=== PATIENT | male | born 1950 | race Caucasian/White ===

== ENCOUNTER 2020-06-11 07:48 | Outpatient (REF) | payer MEDICARE, OTHER, SELFPAY ==
[2020-06-11 10:27] LABS: Basophils Percent Auto 0.6 % (0-2); Eosinophils Absolute Auto 0.2 X10*3/uL (0.0-0.4); Eosinophils Percent Auto 2.7 % (0-4); Hematocrit 45.2 % (42-52); Hemoglobin 14.5 g/dl (14.0-18.0); Imm Gran Abs Auto 0.02 X10*3/uL (0.00-0.03); Imm Gran Pct Auto 0.3 % (0.0-0.4); Lymphocytes Absolute Auto 0.9 X10*3/uL (1.2-4.9); Lymphocytes Percent Auto 13.3 % (20-40); MANUAL DIFF FLAG NO; Mean Corpuscular HGB Conc 32.1 g/dl (31.0-36.0); Mean Corpuscular Hemoglobin 29.6 pg (27.0-33.0); Mean Corpuscular Volume 92.2 fL (80-98); Monocytes Absolute Auto 0.5 X10*3/uL (0.1-1.2); Monocytes Percent Auto 8.4 % (2-11); Neutrophils Absolute Auto 4.8 X10*3/uL (2.0-8.3); Neutrophils Percent Auto 74.7 % (45-73); Platelet Count 163 X10*3/uL (160-400); Red Cell Distribution Width 13.3 % (11.0-16.0); White Blood Count 6.4 X10*3/uL (4.8-10.8)
[2020-06-11 10:43] LABS: Estimated Average Glucose 126 mg/dL
[2020-06-11 11:00] LABS: Alanine Aminotransferase 38 U/L (0-40); Albumin Level 4.3 g/dL (3.5-5.0); Alkaline Phosphatase 46 U/L (39-117); Anion Gap 11 (12-20); Aspartate Amino Transferase 27 U/L (5-37); Bilirubin Total 0.8 mg/dL (0.0-1.0); Blood Urea Nitrogen 24 mg/dL (9-16); Calcium 8.8 mg/dL (8.4-10.2); Carbon Dioxide 32 mmol/L (22-29); Chloride 101 mmol/L (96-108); Cholesterol 160 mg/dL; Estimated Glomerular Filt Rate > 60; Glucose Fasting 114 mg/dL (60-99); HDL Cholesterol 38 mg/dL; LDL Cholesterol Calculated 95 mg/dl; Potassium 4.4 mmol/L (3.3-5.1); Sodium 140 mmol/L (135-145); Total Protein 6.8 g/dL (6.5-8.0); Triglycerides 138 mg/dL
[2020-06-11 11:21] LABS: TSH reflex Free T4 1.37 uIU/mL (0.32-4.0); Vitamin D 25-OH Total 18.6 ng/mL (>30)
[2020-06-11 12:23] LABS: Vitamin B12 715 pg/mL (200-900)
[2020-06-11 14:17] LABS: Glucose Urine UA NEG (NEG); Leukocyte Esterase Urine NEG (NEG); Nitrite Urine NEG (NEG); PH 5.5 (5.0-8.0); Specific Gravity - Urine >= 1.030 (1.005-1.025); Urine Blood NEG (NEG); Urine Ketones NEG (NEG); Urine Protein NEG (NEG-TRACE)
[2020-06-11 14:19] LABS: Appearance Urine TURBID; Color Urine YELLOW
[2020-06-11 14:42] LABS: RBC Urine 0 /HPF (0); WBC Urine 0 /HPF (0-4)
[2020-06-11 14:43] LABS: Amorphous Sediment Urine 4+ /LPF
== END 2020-06-11 07:49 | disposition home or self-care (01) ==
LOC: HO.10HDL 07:48
PROVIDERS: Visit Provider Internal Medicine
DX: E78.5 Hyperlipidemia, unspecified (principal); I10 Essential (primary) hypertension; R73.01 Impaired fasting glucose; I25.10 Atherosclerotic heart disease of native coronary artery without angina pectoris; E53.8 Deficiency of other specified B group vitamins; K21.9 Gastro-esophageal reflux disease without esophagitis; N39.41 Urge incontinence; E55.9 Vitamin D deficiency, unspecified; G57.12 Meralgia paresthetica, left lower limb; E66.9 Obesity, unspecified
CPT/HCPCS: 36415; 80053; 80061; 81001; 82306; 82607; 82746; 83036; 84443; 85025

== ENCOUNTER 2020-12-17 07:53 | Outpatient (REF) | payer MEDICARE, OTHER, SELFPAY ==
[2020-12-17 10:17] LABS: MANUAL DIFF FLAG NO
[2020-12-17 10:21] LABS: Basophils Percent Auto 0.4 % (0-2); Eosinophils Absolute Auto 0.2 X10*3/uL (0.0-0.4); Eosinophils Percent Auto 3.2 % (0-4); Hematocrit 44.8 % (42-52); Hemoglobin 14.6 g/dl (14.0-18.0); Imm Gran Abs Auto 0.02 X10*3/uL (0.00-0.03); Imm Gran Pct Auto 0.4 % (0.0-0.4); Lymphocytes Absolute Auto 0.8 X10*3/uL (1.2-4.9); Lymphocytes Percent Auto 14.3 % (20-40); Mean Corpuscular HGB Conc 32.6 g/dl (31.0-36.0); Monocytes Absolute Auto 0.5 X10*3/uL (0.1-1.2); Neutrophils Percent Auto 72.7 % (45-73); Platelet Count 160 X10*3/uL (160-400); Red Blood Count 4.87 X10*6/uL (4.60-5.80); Red Cell Distribution Width 13.1 % (11.0-16.0); White Blood Count 5.5 X10*3/uL (4.8-10.8)
[2020-12-17 10:34] LABS: Estimated Average Glucose 126 mg/dL
[2020-12-17 10:46] LABS: Appearance Urine CLOUDY; Color Urine YELLOW; Glucose Urine UA NEG (NEG); Leukocyte Esterase Urine NEG (NEG); Nitrite Urine NEG (NEG); PH 5.5 (5.0-8.0); Specific Gravity - Urine >= 1.030 (1.005-1.025); Urine Blood NEG (NEG); Urine Ketones NEG (NEG); Urine Protein NEG (NEG-TRACE)
[2020-12-17 10:47] LABS: Alanine Aminotransferase 47 U/L (0-40); Albumin Level 4.2 g/dL (3.5-5.0); Alkaline Phosphatase 44 U/L (39-117); Anion Gap 13 (12-20); Aspartate Amino Transferase 30 U/L (5-37); Bilirubin Total 0.5 mg/dL (0.0-1.0); Blood Urea Nitrogen 19 mg/dL (9-16); Carbon Dioxide 28 mmol/L (22-29); Chloride 103 mmol/L (96-108); Cholesterol 154 mg/dL; Estimated Glomerular Filt Rate > 60; Glucose Fasting 121 mg/dL (60-99); HDL Cholesterol 38 mg/dL; LDL Cholesterol Calculated 90 mg/dl; Potassium 4.5 mmol/L (3.3-5.1); Sodium 139 mmol/L (135-145); Total Protein 6.7 g/dL (6.5-8.0); Triglycerides 132 mg/dL
[2020-12-17 11:08] LABS: TSH reflex Free T4 1.01 uIU/mL (0.32-4.0); Vitamin D 25-OH Total 20.8 ng/mL (>30)
[2020-12-17 12:11] LABS: Vitamin B12 677 pg/mL (200-900)
== END 2020-12-17 07:54 | disposition home or self-care (01) ==
LOC: HO.10HDL 07:53
PROVIDERS: Visit Provider Internal Medicine
DX: E78.00 Pure hypercholesterolemia, unspecified (principal); I10 Essential (primary) hypertension; R73.01 Impaired fasting glucose; E55.9 Vitamin D deficiency, unspecified; E66.9 Obesity, unspecified; E53.8 Deficiency of other specified B group vitamins; K21.9 Gastro-esophageal reflux disease without esophagitis
CPT/HCPCS: 36415; 80053; 80061; 81003; 82306; 82607; 82746; 83036; 84443; 85025

== ENCOUNTER 2021-10-05 06:57 | Outpatient (REF) | payer MEDICARE, OTHER, SELFPAY ==
[2021-10-05 07:25] LABS: MANUAL DIFF FLAG NO
[2021-10-05 08:03] LABS: Basophils Absolute Auto 0.1 X10*3/uL (0.0-0.2); Eosinophils Absolute Auto 0.2 X10*3/uL (0.0-0.4); Eosinophils Percent Auto 4.8 % (0-4); Hematocrit 44.8 % (42.0-52.0); Hemoglobin 14.8 g/dl (14.0-18.0); Imm Gran Abs Auto 0.01 X10*3/uL (0.00-0.03); Imm Gran Pct Auto 0.2 % (0.0-0.4); Lymphocytes Absolute Auto 0.9 X10*3/uL (1.2-4.9); Lymphocytes Percent Auto 17.6 % (20-40); Mean Corpuscular Hemoglobin 30.4 pg (27.0-33.0); Mean Platelet Volume 11.6 fL (9.4-12.4); Monocytes Absolute Auto 0.4 X10*3/uL (0.1-1.2); Monocytes Percent Auto 8.9 % (2-11); Neutrophils Absolute Auto 3.3 x10*3/uL (2.0-8.3); Neutrophils Percent Auto 67.5 % (45-73); Platelet Count 149 X10*3/uL (160-400); Red Blood Count 4.87 X10*6/uL (4.60-5.80); Red Cell Distribution Width 13.8 % (11.0-16.0); White Blood Count 4.8 X10*3/uL (4.8-10.8)
[2021-10-05 08:12] LABS: Estimated Average Glucose 117 mg/dL; Hemoglobin A1C 151.6575 umol/L; Hemoglobin A1c % 5.7 %
[2021-10-05 08:18] LABS: Appearance Urine CLEAR; Color Urine YELLOW; Glucose Urine UA NEG (NEG); Leukocyte Esterase Urine NEG (NEG); Nitrite Urine NEG (NEG); Urine Blood NEG (NEG); Urine Ketones NEG (NEG); Urine Protein NEG (NEG-TRACE)
[2021-10-05 08:36] LABS: Alanine Aminotransferase 28 U/L (0-40); Albumin Level 4.3 g/dL (3.5-5.0); Alkaline Phosphatase 48 U/L (39-117); Anion Gap 9 (12-20); Aspartate Amino Transferase 25 U/L (5-37); Bilirubin Total 0.7 mg/dL (0.0-1.0); Blood Urea Nitrogen 19 mg/dL (9-16); Calcium 8.9 mg/dL (8.4-10.2); Carbon Dioxide 31 mmol/L (22-29); Chloride 101 mmol/L (96-108); Cholesterol 165 mg/dL; Estimated Glomerular Filt Rate > 60; Glucose Fasting 107 mg/dL (60-99); HDL Cholesterol 41 mg/dL; LDL Cholesterol Calculated 92 mg/dl; Potassium 4.2 mmol/L (3.3-5.1); Sodium 137 mmol/L (135-145); Total Protein 6.9 g/dL (6.5-8.0); Triglycerides 162 mg/dL
[2021-10-05 08:59] LABS: TSH reflex Free T4 0.96 uIU/mL (0.32-4.0); Vitamin D 25-OH Total 20.7 ng/mL (>30)
== END 2021-10-05 06:58 | disposition home or self-care (01) ==
LOC: HO.LAB 06:57
PROVIDERS: PCP Internal Medicine; Visit Provider Internal Medicine
DX: E55.9 Vitamin D deficiency, unspecified (principal); I10 Essential (primary) hypertension; E78.00 Pure hypercholesterolemia, unspecified; R73.01 Impaired fasting glucose
CPT/HCPCS: 36415; 80053; 80061; 81003; 82306; 83036; 84443; 85025

== ENCOUNTER 2022-04-05 07:44 | Outpatient (REF) | payer MEDICARE, OTHER, SELFPAY ==
[2022-04-05 10:33] LABS: MANUAL DIFF FLAG NO
[2022-04-05 10:38] LABS: Basophils Percent Auto 0.5 % (0-2); Eosinophils Absolute Auto 0.2 X10*3/uL (0.0-0.4); Hematocrit 45.5 % (42.0-52.0); Hemoglobin 14.7 g/dl (14.0-18.0); Imm Gran Abs Auto 0.01 X10*3/uL (0.00-0.03); Imm Gran Pct Auto 0.2 % (0.0-0.4); Lymphocytes Absolute Auto 0.8 X10*3/uL (1.2-4.9); Lymphocytes Percent Auto 14.2 % (20-40); Mean Corpuscular HGB Conc 32.3 g/dl (31.0-36.0); Mean Corpuscular Hemoglobin 29.6 pg (27.0-33.0); Mean Corpuscular Volume 91.7 fL (80.0-98.0); Mean Platelet Volume 11.6 fL (9.4-12.4); Monocytes Absolute Auto 0.5 X10*3/uL (0.1-1.2); Monocytes Percent Auto 8.9 % (2-11); Neutrophils Absolute Auto 4.2 x10*3/uL (2.0-8.3); Neutrophils Percent Auto 72.2 % (45-73); Platelet Count 164 X10*3/uL (160-400); Red Blood Count 4.96 X10*6/uL (4.60-5.80); Red Cell Distribution Width 13.2 % (11.0-16.0); White Blood Count 5.8 X10*3/uL (4.8-10.8)
[2022-04-05 11:10] LABS: Estimated Average Glucose 126 mg/dL
[2022-04-05 11:15] LABS: Appearance Urine Clear; Color Urine Yellow; Glucose Urine UA Negative (Negative); Leukocyte Esterase Urine Negative (Negative); Nitrite Urine Negative (Negative); Urine Blood Negative (Negative); Urine Ketones Negative (Negative); Urine Protein Negative (Neg-Trace)
[2022-04-05 11:25] LABS: Alanine Aminotransferase 22 U/L (0-40); Albumin Level 4.3 g/dL (3.5-5.0); Alkaline Phosphatase 55 U/L (39-117); Anion Gap 11 (12-20); Aspartate Amino Transferase 21 U/L (5-37); Bilirubin Total 0.6 mg/dL (0.0-1.0); Blood Urea Nitrogen 21 mg/dL (9-16); Calcium 9.4 mg/dL (8.4-10.2); Carbon Dioxide 31 mmol/L (22-29); Chloride 101 mmol/L (96-108); Cholesterol 150 mg/dL; Estimated Glomerular Filt Rate > 60; Glucose Fasting 111 mg/dL (60-99); HDL Cholesterol 37 mg/dL; LDL Cholesterol Calculated 83 mg/dl; Potassium 4.7 mmol/L (3.3-5.1); Sodium 138 mmol/L (135-145); Total Protein 6.7 g/dL (6.5-8.0); Triglycerides 153 mg/dL
[2022-04-05 12:09] LABS: TSH reflex Free T4 1.39 uIU/mL (0.32-4.0); Vitamin D 25-OH Total 22.1 ng/mL (>30)
== END 2022-04-05 07:45 | disposition home or self-care (01) ==
LOC: HO.10HDL 07:44
PROVIDERS: Visit Provider Internal Medicine
DX: E78.00 Pure hypercholesterolemia, unspecified (principal); E55.9 Vitamin D deficiency, unspecified; R73.01 Impaired fasting glucose; I10 Essential (primary) hypertension
CPT/HCPCS: 36415; 80053; 80061; 81003; 82306; 83036; 84443; 85025

== ENCOUNTER 2022-05-13 11:15 | Outpatient (REF) | payer MEDICARE, OTHER, SELFPAY ==
--- NOTE | ~2022-05-13 | XR_ITS ---
EXAMINATION: CERVICAL SPINE 3 VIEWS CLINICAL INFORMATION: Radiculopathy. COMPARISON: None. TECHNIQUE: Frontal, lateral and odontoid views are obtained. FINDINGS: Vertebral body heights and alignment are normal. There is mild disc space narrowing at C4-C5, and moderate disc space narrowing is seen at C5-C6 and C6-C7. The remaining disc spaces are well-maintained. No acute fracture or spondylolisthesis is seen. There is multi-level moderate to marked cervical spondylosis. The posterior elements are intact. There is no prevertebral soft tissue swelling. The dens and C7-T1 interface are normal. XR/XR cervical spine 3V IMPRESSION: 1. There is mild degenerative disc disease at C4-C5 and moderate degenerative disc disease seen at C5-C6 and C6-C7. 2. There is multi-level cervical spondylosis. EXAMINATION: XR THORACIC SPINE CLINICAL INFORMATION: Thoracic spondylosis, without myelopathy or radiculopathy. COMPARISON: Radiographs dated 04/06/2015. TECHNIQUE: Frontal, lateral and swimmer's views of the thoracic spine were obtained. FINDINGS: There is a mild to moderate thoracolumbar dextroscoliosis. The thoracic disc spaces are relatively well-maintained. No acute fracture or spondylolisthesis is seen. This multi-level thoracolumbar spondylosis. The posterior elements are intact. The paravertebral soft tissues are unremarkable. IMPRESSION: 1. There is multi-level thoracolumbar spondylosis. 2. The thoracic disc spaces are relatively well-maintained. 3. There is a mild to moderate thoracolumbar dextroscoliosis.
--- NOTE | ~2022-05-13 | XR_ITS ---
EXAMINATION: CERVICAL SPINE 3 VIEWS CLINICAL INFORMATION: Radiculopathy. COMPARISON: None. TECHNIQUE: Frontal, lateral and odontoid views are obtained. FINDINGS: Vertebral body heights and alignment are normal. There is mild disc space narrowing at C4-C5, and moderate disc space narrowing is seen at C5-C6 and C6-C7. The remaining disc spaces are well-maintained. No acute fracture or spondylolisthesis is seen. There is multi-level moderate to marked cervical spondylosis. The posterior elements are intact. There is no prevertebral soft tissue swelling. The dens and C7-T1 interface are normal. XR/XR thoracic spine 3V IMPRESSION: 1. There is mild degenerative disc disease at C4-C5 and moderate degenerative disc disease seen at C5-C6 and C6-C7. 2. There is multi-level cervical spondylosis. EXAMINATION: XR THORACIC SPINE CLINICAL INFORMATION: Thoracic spondylosis, without myelopathy or radiculopathy. COMPARISON: Radiographs dated 04/06/2015. TECHNIQUE: Frontal, lateral and swimmer's views of the thoracic spine were obtained. FINDINGS: There is a mild to moderate thoracolumbar dextroscoliosis. The thoracic disc spaces are relatively well-maintained. No acute fracture or spondylolisthesis is seen. This multi-level thoracolumbar spondylosis. The posterior elements are intact. The paravertebral soft tissues are unremarkable. IMPRESSION: 1. There is multi-level thoracolumbar spondylosis. 2. The thoracic disc spaces are relatively well-maintained. 3. There is a mild to moderate thoracolumbar dextroscoliosis.
== END 2022-05-13 11:16 | disposition home or self-care (01) ==
LOC: HO.XRAY 11:15
PROVIDERS: PCP Internal Medicine; Visit Provider Internal Medicine
DX: M54.10 Radiculopathy, site unspecified (principal); M47.814 Spondylosis without myelopathy or radiculopathy, thoracic region
CPT/HCPCS: 72040; 72072

== ENCOUNTER 2022-11-15 08:02 | Outpatient (REF) | payer MEDICARE, OTHER, SELFPAY ==
[2022-11-15 08:24] LABS: MANUAL DIFF FLAG NO
[2022-11-15 08:55] LABS: Basophils Percent Auto 0.8 % (0-2); Eosinophils Absolute Auto 0.2 X10*3/uL (0.0-0.4); Eosinophils Percent Auto 3.9 % (0-4); Hematocrit 44.8 % (42.0-52.0); Hemoglobin 14.7 g/dl (14.0-18.0); Imm Gran Abs Auto 0.02 X10*3/uL (0.00-0.03); Imm Gran Pct Auto 0.4 % (0.0-0.4); Lymphocytes Absolute Auto 0.9 X10*3/uL (1.2-4.9); Lymphocytes Percent Auto 16.6 % (20-40); Mean Corpuscular HGB Conc 32.8 g/dl (31.0-36.0); Mean Corpuscular Hemoglobin 29.6 pg (27.0-33.0); Mean Corpuscular Volume 90.3 fL (80.0-98.0); Mean Platelet Volume 11.5 fL (9.4-12.4); Monocytes Absolute Auto 0.5 X10*3/uL (0.1-1.2); Neutrophils Absolute Auto 3.5 x10*3/uL (2.0-8.3); Neutrophils Percent Auto 68.3 % (45-73); Platelet Count 143 X10*3/uL (160-400); Red Blood Count 4.96 X10*6/uL (4.60-5.80); Red Cell Distribution Width 13.5 % (11.0-16.0); White Blood Count 5.1 X10*3/uL (4.8-10.8)
[2022-11-15 09:04] LABS: Estimated Average Glucose 114 mg/dL; Hemoglobin A1c % 5.6 %
[2022-11-15 09:47] LABS: Alanine Aminotransferase 29 U/L (0-40); Albumin Level 4.2 g/dL (3.5-5.0); Alkaline Phosphatase 48 U/L (39-117); Anion Gap 13 (12-20); Aspartate Amino Transferase 22 U/L (5-37); Bilirubin Total 0.6 mg/dL (0.0-1.0); Blood Urea Nitrogen 20 mg/dL (9-16); Calcium 9.6 mg/dL (8.4-10.2); Carbon Dioxide 29 mmol/L (22-29); Chloride 102 mmol/L (96-108); Cholesterol 148 mg/dL; Estimated Glomerular Filt Rate > 60; Glucose Fasting 115 mg/dL (60-99); HDL Cholesterol 37 mg/dL; LDL Cholesterol Calculated 78 mg/dl; Potassium 4.3 mmol/L (3.3-5.1); Sodium 140 mmol/L (135-145); Total Protein 7.1 g/dL (6.5-8.0); Triglycerides 167 mg/dL
[2022-11-15 09:54] LABS: TSH reflex Free T4 1.26 uIU/mL (0.32-4.0); Vitamin D 25-OH Total 29.5 ng/mL (>30)
[2022-11-15 09:57] LABS: Appearance Urine Clear; Color Urine Yellow; Glucose Urine UA Negative (Negative); Leukocyte Esterase Urine Trace (Negative); Nitrite Urine Negative (Negative); UMIC TRIGGER UACC YES; Urine Blood Negative (Negative); Urine Ketones Negative (Negative); Urine Protein Trace mg/dL (Neg-Trace)
[2022-11-15 10:07] LABS: Bacteria Urine None Seen (None Seen); Hyaline Casts Urine 0-2 /LPF (0-2); RBC Urine 0-2 /HPF (0-2); Squamous Epithelial Cell Urine 0-2 /HPF (0-2); WBC Urine 0-5 /HPF (0-5)
== END 2022-11-15 08:03 | disposition home or self-care (01) ==
LOC: HO.LAB 08:02
PROVIDERS: PCP Internal Medicine; Visit Provider Internal Medicine
DX: E55.9 Vitamin D deficiency, unspecified (principal); I10 Essential (primary) hypertension; R73.01 Impaired fasting glucose; E78.00 Pure hypercholesterolemia, unspecified
CPT/HCPCS: 36415; 80053; 80061; 81001; 81003; 82306; 83036; 84443; 85025

== ENCOUNTER 2022-11-16 09:49 | Outpatient (AMB) | payer MEDICARE, OTHER, SELFPAY ==
[2022-11-16 09:50] VITALS: BP 130/78; PULSE 56; O2SAT 96; BMI 37.8
--- NOTE | 2022-11-16 09:50 | MHC.PC.OV ---
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 Required: No Accompanied by: Self / Same As Patient Allergies Sulfa (Sulfonamide Antibiotics) [SULFA (SULFONAMIDE ANTIBIOTICS)] Allergy (Unknown, Verified 11/16/22 10:21) RASH, hives Medication List - Last Reconciled 11/16/22 by Sascha Perkins MD antiox.mv [id number] [id number] mg (I-Caps) 1 cap PO BID atenolol 25 mg PO DAILY blood pressure monitor (Blood Pressure Kit) As directed cholecalciferol (vitamin D3) 25 mcg PO DAILY cyanocobalamin (vitamin B-12) 1,000 mcg PO DAILY isosorbide mononitrate ER 30 mg PO DAILY lisinopril 10 mg PO DAILY simvastatin 40 mg PO BEDTIME 90 days Tobacco use date assessed: 11/16/22 Fall risk assessment: No Falls in past year Last assessed Fall Risk: 11/16/22 Dental Screening Dental Screen Date: 11/16/22 Did you have a dental visit in the last 12 months?: Yes Did you have a dental problem in the last 6 months where you did not have access to dental care?: No Was dental information given to patient?: Patient has dentist HPI F/U HPI Details Patient comes in today for his follow up visit States that he feels okay He denies any headaches or dizziness Denies any chest pains, no SOB No nausea/vomiting, no abdominal pain No change in bowel habits noted He is still having problems with urination - has urinary frequency and nocturia that he feels got worse when he had his procedure done with Dr. Zapata years ago Is scheduled to see Dr. Chavez in December 2022 for urology evaluation Adds that he has some varicose veins on his legs for a while now but they are starting to bother him (hurt) lately - would like to see vascular surgery to help him get these addressed Had his follow up labs done yesterday - to discuss his results Patient states that he will be heading down to [place] in February 2023 and plans to spend the entire winter down there and will not be back up here until early July 2023 [facility] Medical History Benign essential hypertension Benign prostatic hyperplasia Coronary artery disease Erectile dysfunction GERD without esophagitis Impaired fasting glucose Meralgia paresthetica of left side Obesity (BMI 30-39.9) Pure hypercholesterolemia Vitamin B12 deficiency Vitamin D deficiency Surgical History History of prostate surgery (~04/2017) Family History Father Cardiovascular disease Mother Hypertension Social History Housing: House Alcohol intake: current Alcohol intake frequency: a few times a week Alcohol type: wine Patient Tobacco Use Status: Current someday Tobacco user Tobacco use type: Cigar e-Cigarette/Vaping Use: Never Used Second Hand Smoke Exposure: Yes service: No Current occupational status: employed Cognitive needs: No Hearing needs: No Vision needs: Yes Questionnaire PHQ-9 Over the last 2 weeks, how often have you been bothered by any of the following problems? 1. Little interest or pleasure in doing things: not at all 2. Feeling down, depressed, or hopeless: not at all 3. Trouble falling or staying asleep, or sleeping too much: not at all 4. Feeling tired or having little energy: not at all 5. Poor appetite or overeating: not at all 6. Feeling bad about yourself - or that you are a failure or have let yourself or your family down: not at all 7. Trouble concentrating on things, such as reading the newspaper or watching television: not at all 8. Moving or speaking so slowly that other people could have noticed. Or the opposite - being so fidgety or restless that you have been moving around a lot more than usual: not at all 9. Thoughts that you would be better off or of hurting yourself in some way: not at all Total score: 0 Depression Screening Interpretation: Negative 82953 - PHQ-9 Billing: Yes Source: Developed by Drs. Julio Wagoner, Eileen Grover Mcneil and colleagues, with an educational zion from [employer]. Thrive Questionnaire Date Thrive assessed: 11/16/22 I am a: Patient What is your living situation today?: I have a steady place to live Within the past 12 months, did the food you bought not last and you didn't have the money to get more?: Never true Within the past 12 months, did you worry whether your food would run out before you got money to buy more?: Never true Do you have trouble paying for medicines?: No Do you have trouble getting transportation to medical appointments?: No Do you have trouble paying your heating and electricity bill?: No Do you have trouble taking care of your child, family member or friend?: No Do you have trouble with day-to-day activities such as bathing, preparing meals, shopping, managing finances, etc.?: No Are you currently unemployed and looking for a job?: No Are you interested in more education?: No Please select the resources that you would like help with: None Currently or been in a relationship where the following occur: no concerns reported AUDIT C Alcohol Use Questionnaire (AUDIT-C) 1. How often do you have a drink containing alcohol?: 2-3 times a week 2. How many drinks containing alcohol do you have on a typical day when you are drinking?: 1 or 2 3. How often do you have six or more drinks on one occasion?: Never Total Score: 3 Score Reviewed/Action Taken: Yes KODI-7 AMB Questionnaire KODI-7 Date KODI - 7 assessed: 11/16/22 Feeling nervous, anxious, or on edge: 0 = Not at all Not being able to stop or control worryin = Not at all Worrying too much about different things: 0 = Not at all Trouble relaxin = Not at all Being so restless that it is hard to sit still: 0 = Not at all Becoming easily annoyed or irritable: 0 = Not at all Feeling afraid as if something awful might happen: 0 = Not at all Total KODI-7 score (0-4 normal; 5-9 mild; 10-14 moderate; 15-21 severe): 0 Source: Developed by Drs. Julio Wagoner, Grover Kahn and colleagues, with an educational zion from [employer]. Review of Systems Const Denies fatigue, Denies fever(s) and Denies headache(s) ENT Denies dysphagia, Denies dizziness, Denies otalgia, Denies headache(s), Reports neck pain (on and off) and Denies sore throat Card Denies chest pain, Denies palpitations and Denies dyspnea Resp Denies cough and Denies dyspnea GI Denies abdominal pain, Denies constipation, Denies dysphagia, Denies heartburn, Denies diarrhea, Denies nausea and Denies vomiting Denies dysuria, Reports nocturia and Reports urinary frequency Musc Reports back pain, Reports neck pain (on and off) and Denies tingling Neuro Denies dizziness, Denies headache(s) and Denies tingling Endo Denies fatigue and Denies palpitations Samir/Lymph Details: (+) varicose veins on both legs - reports (+) pain on his veins recently Physical exam (Primary Care) Vital Signs: Last Vital Signs Pulse 56 11/16/22 09:50 BP 130/78 11/16/22 09:50 Pulse Ox 96 11/16/22 09:50 Oxygen Delivery Method Room Air 11/16/22 09:50 BMI result Body Mass Index 37.8 Tobacco/Smoking Status: Tobacco use Status Tobacco use date assessed 11/16/22 11/16/22 09:58 Patient Tobacco Use Status Current someday Tobacco 11/16/22 09:58 Tobacco use type Cigar 11/16/22 09:58 e-Cigarette/Vaping Use Never Used 11/16/22 09:58 PHQ-9: PHQ-9 Score PHQ-9: Total score 0 11/16/22 10:23 Depression Screening Interpretation: Negative Thrive Assessment: Date of Thrive Assessment Date Thrive assessed 11/16/22 11/16/22 09:58 Currently or been in a relationship where the following occur: no concerns reported Const General: no acute distress and alert HENMT Ears: TM's normal bilaterally and EAC's normal Throat: Yes posterior oropharynx normal and Yes tonsils normal (no TP congestion) Neck Neck: Yes no lymphadenopathy and Yes supple Resp Auscultation: clear to auscultation bilaterally, no rales and no wheezes Cardio Rate: regular rate Rhythm: regular rhythm Heart sounds: no murmurs GI Palpation (GI): Soft to palpation and nontender Auscultation: normal bowel sounds Back/Spine/Pelvis Cervical Spine: Cervical spine tenderness Thoracic/Lumbar Spine: thoracic spinal tenderness Skin Rashes: no rashes Extrem Other: (+) prominent varicose veins over both lower extremities General: Yes no clubbing, cyanosis or edema Results Reviewed Results Reviewed: Laboratory Tests 11/15/22 11/15/22 11/15/22 08:22 08:22 08:22 WBC 5.1 Hgb 14.7 Hct 44.8 Plt Count 143 L Sodium 140 Potassium 4.3 Creatinine 0.98 Estimated GFR > 60 Fasting Glucose 115 H Hemoglobin A1c % 5.6 Calcium 9.6 AST 22 ALT 29 Triglycerides 167 Cholesterol 148 LDL Cholesterol, Calc 78 HDL Cholesterol 37 25-OH Vitamin D Total 29.5 TSH 1.26 Ur Specific [place] Urine Protein Urine Glucose (UA) Urine Blood 11/15/22 08:25 WBC Hgb Hct Plt Count Sodium Potassium Creatinine Estimated GFR Fasting Glucose Hemoglobin A1c % Calcium AST ALT Triglycerides Cholesterol LDL Cholesterol, Calc HDL Cholesterol 25-OH Vitamin D Total TSH Ur Specific [place] 1.020 Urine Protein Trace Urine Glucose (UA) Negative Urine Blood Negative Assessment and Plan Assessment & Plan (1) Coronary artery disease: Code(s): I25.10 - Atherosclerotic heart disease of [place] coronary artery without angina pectoris Qualifiers: Associated angina: without angina Coronary Disease-Associated Artery/Lesion type: [place] artery [place] vs. transplanted heart: [place] heart Qualified Code(s): I25.10 - Atherosclerotic heart disease of [place] coronary artery without angina pectoris Plan: Continue Isosorbide Mononitrate ER 30 mg QD Cardiac stress test done about 3 years ago came back negative Was recommended by cardiology to continue long-acting nitrates for maintenance therapy Follow up with cardiology as scheduled (2) Pure hypercholesterolemia: Code(s): E78.00 - Pure hypercholesterolemia, unspecified Plan: Results of his labs done yesterday reviewed and discussed with patient Reinforced low cholesterol diet Continue Simvastatin 40 mg QD Will recheck his labs and fasting lipids before we see him back in July 2023 for follow up (3) Benign essential hypertension: Code(s): I10 - Essential (primary) hypertension Plan: Reinforced low sodium diet - goal is systolic BP of at least 130 to 140 mm or less Continue Lisinopril 10 mg QD and Atenolol 25 mg QD (4) Impaired fasting glucose: Code(s): R73.01 - Impaired fasting glucose Plan: HgbA1c has improved to 5.6% on his labs done yesterday; was at 6.0% a few months ago Reinforced low calorie diet/exercise as tolerated (5) GERD without esophagitis: Code(s): K21.9 - Gastro-esophageal reflux disease without esophagitis Plan: Dietary restrictions reinforced (6) Vitamin D deficiency: Code(s): E55.9 - Vitamin D deficiency, unspecified Plan: Improving - continue Vitamin D3 2000 units daily (7) Radiculopathy affecting upper extremity: Code(s): M54.10 - Radiculopathy, site unspecified Plan: Still has on and off symptoms but states that these have not gotten any worse lately Cervical spine x-rays done earlier this year (April 2022) revealed (+) mild degenerative disc disease at C4-C5 and moderate degenerative disc disease seen at C5-C6 and C6-C7. There is also (+) multi-level cervical spondylosis noted May need to consider NCV & EMG if his symptoms persist or worsen (8) Thoracic spondylosis: Code(s): M47.814 - Spondylosis without myelopathy or radiculopathy, thoracic region Plan: Still has on and off back pain but states that his back symptoms have been manageable lately Past thoracic spine x-rays have revealed (+) spondylosis Repeat thoracic spine x-rays done earlier this year revealed (+) multi-level thoracolumbar spondylosis. The thoracic disc spaces are relatively well-maintained and there is also a mild to moderate thoracolumbar dextroscoliosis noted (9) Varicose veins of both lower extremities with pain: Code(s): I83.813 - Varicose veins of bilateral lower extremities with pain Plan: Per request, will refer him to vascular surgery for further evaluation and management (10) Vitamin B12 deficiency: Code(s): E53.8 - Deficiency of other specified B group vitamins Plan: Corrected - Vitamin B12 was normal when recently checked Continue OTC Vitamin B12 tablets 1000 mcg daily (11) Meralgia paresthetica of left side: Code(s): G57.12 - Meralgia paresthetica, left lower limb Plan: Symptoms stable - reminded again that losing weight and wearing loose clothings can help alleviate or mitigate his symptoms (12) Benign prostatic hyperplasia: Code(s): N40.0 - Benign prostatic hyperplasia without lower urinary tract symptoms Qualifiers: Lower urinary tract symptom presence: unspecified whether lower urinary tract symptoms present Qualified Code(s): N40.0 - Benign prostatic hyperplasia without lower urinary tract symptoms Plan: Patient now feels that his symptoms have not really improved much with his minimally invasive prostate surgery, as he continues to wake up a couple of times a night to use the bathroom Is considering going to Urology instead (as he has been seeing them in the past) for further management but he plans to keep his appt with Dr. Chavez in December 2022 and see what he has to say first (13) Erectile dysfunction: Code(s): N52.9 - Male erectile dysfunction, unspecified Qualifiers: Erectile dysfunction type: unspecified Qualified Code(s): N52.9 - Male erectile dysfunction, unspecified Plan: Follow up with urology as scheduled (14) Obesity (BMI 30-39.9): Code(s): E66.9 - Obesity, unspecified Plan: Reinforced diet/exercise as tolerated/lose weight Plan Follow up in July 2023 when patient returns from [place] where he plans to spend the entire winter Orders: Orders Prostate Specific Antigen Today N40.0 - Benign prostatic hyperplasia without lower urinary tract symptoms PSA,Total (Free>4and<10) Today N40.0 - Benign prostatic hyperplasia without lower urinary tract symptoms Comprehensive [place]. Panel Fast 08/01/23 E78.00 - Pure hypercholesterolemia, unspecified Hemoglobin A1c 08/01/23 E11.9 - Type 2 diabetes mellitus without complications Lipid Panel 08/01/23 E78.00 - Pure hypercholesterolemia, unspecified TSH reflex Free T4 08/01/23 E78.00 - Pure hypercholesterolemia, unspecified Vitamin D 25-OH Total 08/01/23 E55.9 - Vitamin D deficiency, unspecified Complete Blood Count Auto Diff 08/01/23 I10 - Essential (primary) hypertension UA CC w/rflx Micro + Cult 08/01/23 R30.0 - Dysuria Referrals Vascular Surgery Referral I83.813 - Varicose veins of bilateral lower extremities with pain Coding Level of Care Code Est Pt Level 4 (21223) Diagnoses Coronary artery disease I25.10 Associated angina: without angina Coronary Disease-Associated Artery/Lesion type: [place] artery [place] vs. transplanted heart: [place] heart Pure hypercholesterolemia E78.00 Benign essential hypertension I10 Impaired fasting glucose R73.01 GERD without esophagitis K21.9 Vitamin D deficiency E55.9 Radiculopathy affecting upper extremity M54.10 Thoracic spondylosis M47.814 Varicose veins of both lower extremities with pain I83.813 Vitamin B12 deficiency E53.8 Meralgia paresthetica of left side G57.12 Benign prostatic hyperplasia N40.0 Lower urinary tract symptom presence: unspecified whether lower urinary tract symptoms present Erectile dysfunction N52.9 Erectile dysfunction type: unspecified Obesity (BMI 30-39.9) E66.9
== END 2022-11-16 10:42 | disposition home or self-care (01) ==
PROVIDERS: Visit Provider Internal Medicine
DX: I10 Essential (primary) hypertension (principal); K21.9 Gastro-esophageal reflux disease without esophagitis; E55.9 Vitamin D deficiency, unspecified; I25.10 Atherosclerotic heart disease of native coronary artery without angina pectoris; E78.00 Pure hypercholesterolemia, unspecified; R73.01 Impaired fasting glucose; M54.10 Radiculopathy, site unspecified; M47.814 Spondylosis without myelopathy or radiculopathy, thoracic region; I83.813 Varicose veins of bilateral lower extremities with pain; E53.8 Deficiency of other specified B group vitamins; G57.12 Meralgia paresthetica, left lower limb; N40.0 Benign prostatic hyperplasia without lower urinary tract symptoms
CPT/HCPCS: 99214

== ENCOUNTER 2022-11-16 10:54 | Outpatient (REF) | payer MEDICARE, OTHER, SELFPAY | END 2022-11-16 10:55 | disposition home or self-care (01) | LOC: HO.10HDL 10:54 | PROVIDERS: Visit Provider Internal Medicine | DX: Z12.5 Encounter for screening for malignant neoplasm of prostate (principal); N40.0 Benign prostatic hyperplasia without lower urinary tract symptoms | CPT/HCPCS: 36415; 84153 ==

== ENCOUNTER 2023-01-05 15:37 | Outpatient (AMB) | payer MEDICARE, OTHER, SELFPAY ==
--- NOTE | 2023-01-05 15:41 | A.OFFVIS_ITS ---
Intake Intake Visit Reasons: Re-establish care/Benign prostatic hyperplasia Intake Note: Patient is Present for Follow Up Re establish care Urology Medication: None Antibiotic Allergies: Sulfa Blood Thinners: None Pharmacy: [facility] Allergies Sulfa (Sulfonamide Antibiotics) [SULFA (SULFONAMIDE ANTIBIOTICS)] Allergy (Unknown, Verified 01/05/23 15:45) RASH, hives Medication List - Last Reconciled 01/05/23 by Kendall Chavez MD antiox.mv [id number] 280-10-2 mg (I-Caps) 1 cap PO BID atenolol 25 mg PO DAILY blood pressure monitor (Blood Pressure Kit) As directed cholecalciferol (vitamin D3) 25 mcg PO DAILY cyanocobalamin (vitamin B-12) 1,000 mcg PO DAILY isosorbide mononitrate ER 30 mg PO DAILY lisinopril 10 mg PO DAILY simvastatin 40 mg PO BEDTIME 90 days tadalafil 5 mg PO DAILY 90 days HPI HPI Comments History of Present Illness Details Benja is a pleasant male. He is a patient of Dr. Perkins. He seen for the following urologic conditions - lower urinary tract symptoms - erectile dysfunction Erectile dysfunction Previously use of MUSE Prescription provided Trial daily tadalafil PFSH Medical History Benign essential hypertension Benign prostatic hyperplasia Coronary artery disease Erectile dysfunction GERD without esophagitis Impaired fasting glucose Meralgia paresthetica of left side Obesity (BMI 30-39.9) Pure hypercholesterolemia Vitamin B12 deficiency Vitamin D deficiency Surgical History History of prostate surgery (~04/2017) Family History Father Cardiovascular disease Mother Hypertension Social History Housing: House Alcohol intake: current Alcohol intake frequency: a few times a week Alcohol type: wine Patient Tobacco Use Status: Current someday Tobacco user Tobacco use type: Cigar e-Cigarette/Vaping Use: Never Used Second Hand Smoke Exposure: Yes service: No Current occupational status: employed Cognitive needs: No Hearing needs: No Vision needs: Yes Review of Systems Const Denies chills and Denies fever(s) Card Reports no additional complaints and Denies syncope Resp Denies cough GI Denies abdominal pain and Denies heartburn Reports as per HPI and Denies change in libido Neuro Denies syncope Psych Denies change in libido Endo Denies change in libido Physical Exam Const General: cooperative, healthy appearing, comfortable and no acute distress Orientation/consciousness: patient oriented x3 HEENT Face and sinus: Yes normal facial exam Mouth: moist mucous membranes Neck Neck: Yes normal visual inspection, Yes full ROM and Yes trachea midline Chest Chest palpation & inspection: normal inspection of the chest Resp Effort & Inspection: normal respiratory effort, able to speak in complete sentences and no respiratory distress GI Inspection: Yes normal to inspection Back/Spine/Pelvis Cervical Spine: normal cervical lordosis Thoracic/Lumbar Spine: thoracic and lumbar spine normal to inspection Skin General skin exam: no rashes or lesions noted Neuro General: patient oriented x3, gait normal, tone normal and moves all extremities Extrem General: Yes normal to inspection and Yes capillary refill normal Assessment & Plan Assessment & Plan (1) Erectile dysfunction: Code(s): N52.9 - Male erectile dysfunction, unspecified Qualifiers: Erectile dysfunction type: unspecified Qualified Code(s): N52.9 - Male erectile dysfunction, unspecified Plan Prescription for MUSE Addition of daily tadalafil Medications: New tadalafil 5 mg PO DAILY 90 tabs 0RF sexual activity 90 days N52.9 - Male erectile dysfunction, unspecified alprostadil ([place]) 1,000 mcg intra-urethral ONCE PRN 2 ea 0RF erectile dysfunction 30 days N52.9 - Male erectile dysfunction, unspecified Patient Instructions: Imaging studies, laboratory and physical exam results were discussed and reviewed in detail. No major barriers to patient understanding were identified. An opportunity to ask questions regarding the treatment plan was provided. All questions were answered. The patient expressed understanding and agreement with the above treatment plan. The patient is aware they should contact our office by phone for worsening of their current condition or the appearance of new urologic symptoms. Compliance is encouraged with any medications and followup testing that is ordered. It is a privilege to participate in the urologic care of your patient. If you have any questions or concerns regarding treatment for the above conditions, or other urologic issues, please do not hesitate to contact me. The office telephone contact is [phone]. This note is constructed using voice recognition software. While every effort has been made to ensure accuracy dean of students errors may have been included. Yours sincerely, Dr Kendall Chavez MD, [facility] - Urology Providers of Expert, Compassionate Care for the Genitourinary System Coding Level of Care Code New Pt Level 4 (22625) Diagnoses Erectile dysfunction, unspecified erectile dysfunction type N52.9 Erectile dysfunction type: unspecified
== END 2023-01-05 16:21 | disposition home or self-care (01) ==
PROVIDERS: PCP Internal Medicine; Visit Provider Urology
DX: N52.9 Male erectile dysfunction, unspecified (principal)
CPT/HCPCS: 99204

== ENCOUNTER → 2023-01-05 15:37 | Outpatient (BNVA) | payer MEDICARE, OTHER, SELFPAY | PROVIDERS: PCP Internal Medicine; Visit Provider Urology ==

== ENCOUNTER → 2023-04-28 08:31 | Outpatient (BNVA) | payer MEDICARE, OTHER, SELFPAY | PROVIDERS: PCP Internal Medicine; Visit Provider Urology ==

== ENCOUNTER 2023-04-28 08:37 | Outpatient (AMB) | payer MEDICARE, OTHER, SELFPAY ==
--- NOTE | 2023-04-28 08:32 | A.OFFVIS_ITS ---
Intake Intake Visit Reasons: 3M Med Review(MUSE) Intake Note: Patient presents today for a follow-up on: Medication Review Meds- [place], Tadalafil Allergies to Antibiotic- Sulfa Blood Thinner- None Seat Pack Inspector Required: No Allergies Sulfa (Sulfonamide Antibiotics) [SULFA (SULFONAMIDE ANTIBIOTICS)] Allergy (Unknown, Verified 04/28/23 08:33) RASH, hives HPI HPI Comments History of Present Illness Details Benja is a pleasant male. He is a patient of Dr. Perkins. He seen for the following urologic conditions - lower urinary tract symptoms - erectile dysfunction Telemedicine Evaluation 15 min Consultation Respiratory Motion Soniya Video attempted Did have some benefit from 5 mg Will add 20 mg on demand Is currently in [place] and he will call to let us know pharmacy to send prescriptions to Is also on isosorbide but has had no adverse interaction and has stable blood pressure Erectile dysfunction Previously use of MUSE Prescription provided Trial daily tadalafil PFSH Medical History Coronary artery disease Obesity (BMI 30-39.9) Erectile dysfunction Meralgia paresthetica of left side Vitamin B12 deficiency Vitamin D deficiency Benign prostatic hyperplasia GERD without esophagitis Impaired fasting glucose Pure hypercholesterolemia Benign essential hypertension Surgical History History of prostate surgery (~04/2017) Family History Father Cardiovascular disease Mother Hypertension Social History Housing: House Alcohol intake: current Alcohol intake frequency: a few times a week Alcohol type: wine Patient Tobacco Use Status: Current someday Tobacco user Tobacco use type: Cigar e-Cigarette/Vaping Use: Never Used Second Hand Smoke Exposure: Yes service: No Current occupational status: employed Cognitive needs: No Hearing needs: No Vision needs: Yes Assessment & Plan Assessment & Plan (1) Erectile dysfunction: Code(s): N52.9 - Male erectile dysfunction, unspecified Qualifiers: Erectile dysfunction type: unspecified Qualified Code(s): N52.9 - Male erectile dysfunction, unspecified Plan Three-month follow-up tele Add on demand tadalafil Patient Instructions: Imaging studies, laboratory and physical exam results were discussed and reviewed in detail. No major barriers to patient understanding were identified. An opportunity to ask questions regarding the treatment plan was provided. All questions were answered. The patient expressed understanding and agreement with the above treatment plan. The patient is aware they should contact our office by phone for worsening of their current condition or the appearance of new urologic symptoms. Compliance is encouraged with any medications and followup testing that is ordered. It is a privilege to participate in the urologic care of your patient. If you have any questions or concerns regarding treatment for the above conditions, or other urologic issues, please do not hesitate to contact me. The office telephone contact is [phone]. This note is constructed using voice recognition software. While every effort has been made to ensure accuracy honey extractor errors may have been included. Yours sincerely, Dr Kendall Chavez MD, [facility] - Urology Providers of Expert, Compassionate Care for the Genitourinary System Telehealth Telehealth Location of provider rendering services: practice address Location of patient: address on file Patient Identification confirmed using: Name, : Yes Telehealth method: video Patient verbally consented to treatment: Yes Patient verbally consented to billing insurance company: Yes Patient informed of any privacy concerns related to visit: Yes Coding Level of Care Code Tele Est Pt Level 3 (19528) Diagnoses Erectile dysfunction, unspecified erectile dysfunction type N52.9 Erectile dysfunction type: unspecified
== END 2023-04-28 10:49 | disposition home or self-care (01) ==
PROVIDERS: PCP Internal Medicine; Visit Provider Urology
DX: N52.9 Male erectile dysfunction, unspecified (principal)
CPT/HCPCS: 99213

== ENCOUNTER 2023-08-11 08:56 | Outpatient (AMB) | payer MEDICARE, OTHER, SELFPAY ==
--- NOTE | 2023-08-11 09:10 | A.OFFVIS_ITS ---
Intake Visit Reasons: 3m follow up Intake Note: Patient is Present for Follow Up Urology Medication: Tadalafil -Patient temporarily stopped medication Antibiotic Allergies: Sulfa antibiotic Blood Thinners: None Allergies Sulfa (Sulfonamide Antibiotics) [SULFA (SULFONAMIDE ANTIBIOTICS)] Allergy (Unknown, Verified 04/28/23 08:33) RASH, hives HPI Comments Details: Benja is a pleasant male. He is a patient of Dr. Perkins. He seen for the following urologic conditions - lower urinary tract symptoms - erectile dysfunction Did notice that bladder control was improved with 5 mg daily tadalafil. Less urgency and less frequency Had come off medication recently has had noticed trace blood in his urine after his trip back from [place] Thinks this may have been secondary to dehydration Is aware of the interaction between tadalafil and isosorbide Takes these medications during the day Blood pressure stable Discussed use of penile constriction bands for venous leak. Printed information provided to allow him to order. Erectile dysfunction Previously use of MUSE Prescription provided Trial daily tadalafil [facility] Medical History Coronary artery disease Obesity (BMI 30-39.9) Erectile dysfunction Meralgia paresthetica of left side Vitamin B12 deficiency Vitamin D deficiency Benign prostatic hyperplasia GERD without esophagitis Impaired fasting glucose Pure hypercholesterolemia Benign essential hypertension Surgical History History of prostate surgery (~04/2017) Family History Father Cardiovascular disease Mother Hypertension Social History Housing: House Alcohol intake: current Alcohol intake frequency: a few times a week Alcohol type: wine Patient Tobacco Use Status: Current someday Tobacco user Tobacco use type: Cigar e-Cigarette/Vaping Use: Never Used Second Hand Smoke Exposure: Yes service: No Current occupational status: employed Cognitive needs: No Hearing needs: No Vision needs: Yes Review of Systems Const Denies chills and Denies fever(s) Card Reports no additional complaints and Denies syncope Resp Denies cough GI Denies abdominal pain and Denies heartburn Reports as per HPI and Denies change in libido Neuro Denies syncope Psych Denies change in libido Endo Denies change in libido Physical Exam Const General: cooperative, healthy appearing, comfortable and no acute distress Orientation/consciousness: patient oriented x3 HEENT Face and sinus: Yes normal facial exam Mouth: moist mucous membranes Neck Neck: Yes normal visual inspection, Yes full ROM and Yes trachea midline Chest Chest palpation & inspection: normal inspection of the chest Resp Effort & Inspection: normal respiratory effort, able to speak in complete sentences and no respiratory distress GI Inspection: Yes normal to inspection Back/Spine/Pelvis Cervical Spine: normal cervical lordosis Thoracic/Lumbar Spine: thoracic and lumbar spine normal to inspection Skin General skin exam: no rashes or lesions noted Neuro General: patient oriented x3, gait normal, tone normal and moves all extremities Extrem General: Yes normal to inspection and Yes capillary refill normal Assessment & Plan Assessment & Plan (1) Erectile dysfunction: Code(s): N52.9 - Male erectile dysfunction, unspecified Category: Medical Qualifiers: Erectile dysfunction type: unspecified Qualified Code(s): N52.9 - Male erectile dysfunction, unspecified (2) Benign prostatic hyperplasia: Code(s): N40.0 - Benign prostatic hyperplasia without lower urinary tract symptoms Category: Medical Qualifiers: Lower urinary tract symptom presence: unspecified whether lower urinary tract symptoms present Qualified Code(s): N40.0 - Benign prostatic hyperplasia without lower urinary tract symptoms Plan Six-month follow-up Patient Instructions: Imaging studies, laboratory and physical exam results were discussed and reviewed in detail. No major barriers to patient understanding were identified. An opportunity to ask questions regarding the treatment plan was provided. All questions were answered. The patient expressed understanding and agreement with the above treatment plan. The patient is aware they should contact our office by phone for worsening of their current condition or the appearance of new urologic symptoms. Compliance is encouraged with any medications and followup testing that is ordered. It is a privilege to participate in the urologic care of your patient. If you have any questions or concerns regarding treatment for the above conditions, or other urologic issues, please do not hesitate to contact me. The office telephone contact is [phone]. This note is constructed using voice recognition software. While every effort has been made to ensure accuracy [employer] rep errors may have been included. Yours sincerely, Dr Kendall Chavez MD, [facility] - Urology Providers of Expert, Compassionate Care for the Genitourinary System Coding Level of Care Code Est Pt Level 4 (11698) Diagnoses Erectile dysfunction, unspecified erectile dysfunction type N52.9 Erectile dysfunction type: unspecified Benign prostatic hyperplasia, unspecified whether lower urinary tract symptoms present N40.0 Lower urinary tract symptom presence: unspecified whether lower urinary tract symptoms present
== END 2023-08-11 09:51 | disposition home or self-care (01) ==
PROVIDERS: PCP Internal Medicine; Visit Provider Urology
DX: N52.9 Male erectile dysfunction, unspecified (principal); N40.0 Benign prostatic hyperplasia without lower urinary tract symptoms
CPT/HCPCS: 99213

== ENCOUNTER → 2023-08-11 08:56 | Outpatient (BNVA) | payer MEDICARE, OTHER, SELFPAY | PROVIDERS: PCP Internal Medicine; Visit Provider Urology | DX: N52.9 Male erectile dysfunction, unspecified (principal); N40.0 Benign prostatic hyperplasia without lower urinary tract symptoms | CPT/HCPCS: 99212 ==

== ENCOUNTER 2023-08-24 08:05 | Outpatient (REF) | payer MEDICARE, OTHER, SELFPAY ==
[2023-08-24 10:36] LABS: MANUAL DIFF FLAG NO
[2023-08-24 10:44] LABS: Basophils Absolute Auto 0.1 X10*3/uL (0.0-0.2); Basophils Percent Auto 0.9 % (0-2); Eosinophils Absolute Auto 0.2 X10*3/uL (0.0-0.4); Eosinophils Percent Auto 3.5 % (0-4); Hematocrit 42.8 % (42.0-52.0); Imm Gran Abs Auto 0.02 X10*3/uL (0.00-0.03); Imm Gran Pct Auto 0.4 % (0.0-0.4); Lymphocytes Absolute Auto 0.7 X10*3/uL (1.2-4.9); Lymphocytes Percent Auto 12.6 % (20-40); Mean Corpuscular HGB Conc 32.7 g/dl (31.0-36.0); Mean Corpuscular Hemoglobin 29.6 pg (27.0-33.0); Mean Corpuscular Volume 90.5 fL (80.0-98.0); Mean Platelet Volume 12.1 fL (9.4-12.4); Monocytes Absolute Auto 0.5 X10*3/uL (0.1-1.2); Monocytes Percent Auto 8.9 % (2-11); Neutrophils Absolute Auto 4.2 x10*3/uL (2.0-8.3); Neutrophils Percent Auto 73.7 % (45-73); Platelet Count 140 X10*3/uL (160-400); Red Blood Count 4.73 X10*6/uL (4.60-5.80); Red Cell Distribution Width 13.4 % (11.0-16.0); White Blood Count 5.7 X10*3/uL (4.8-10.8)
[2023-08-24 10:57] LABS: Appearance Urine Clear; Color Urine Yellow; Glucose Urine UA Negative (Negative); Leukocyte Esterase Urine Trace (Negative); Nitrite Urine Negative (Negative); PH 5.5 (5.0-9.0); UMIC TRIGGER UACC YES; Urine Blood Negative (Negative); Urine Ketones Negative (Negative); Urine Protein Negative (Neg-Trace)
[2023-08-24 11:02] LABS: Bacteria Urine None Seen (None Seen); Hyaline Casts Urine 0-2 /LPF (0-2); RBC Urine 0-2 /HPF (0-2); Squamous Epithelial Cell Urine 0-2 /HPF (0-2); WBC Urine 0-5 /HPF (0-5)
[2023-08-24 11:05] LABS: Estimated Average Glucose 123 mg/dL; Hemoglobin A1C 149.4221 umol/L; Hemoglobin A1c % 5.9 % (<6.0)
[2023-08-24 11:21] LABS: Alanine Aminotransferase 18 U/L (0-40); Albumin Level 3.9 g/dL (3.5-5.0); Alkaline Phosphatase 50 U/L (39-117); Anion Gap 12 (12-20); Aspartate Amino Transferase 17 U/L (5-37); Bilirubin Total 0.5 mg/dL (0.0-1.0); Blood Urea Nitrogen 16 mg/dL (9-16); Calcium 8.8 mg/dL (8.4-10.2); Carbon Dioxide 29 mmol/L (22-29); Chloride 104 mmol/L (96-108); Cholesterol 140 mg/dL (<200); Estimated Glomerular Filt Rate > 60; Glucose Fasting 105 mg/dL (60-99); HDL Cholesterol 41 mg/dL (>40); LDL Cholesterol Calculated 75 mg/dL (<100); Potassium 3.9 mmol/L (3.3-5.1); Sodium 141 mmol/L (135-145); Total Protein 6.5 g/dL (6.5-8.0); Triglycerides 121 mg/dL (<150)
[2023-08-24 11:31] LABS: Prostate Specific Antigen 1.18 ng/mL (<0.05-4.0)
[2023-08-24 11:37] LABS: TSH reflex Free T4 1.42 uIU/mL (0.32-4.0); Vitamin D 25-OH Total 25.5 ng/mL (>30)
== END 2023-08-24 08:06 | disposition home or self-care (01) ==
LOC: HO.10HDL 08:05
PROVIDERS: Visit Provider Internal Medicine
DX: E78.00 Pure hypercholesterolemia, unspecified (principal); R30.0 Dysuria; E55.9 Vitamin D deficiency, unspecified; N40.0 Benign prostatic hyperplasia without lower urinary tract symptoms; E11.9 Type 2 diabetes mellitus without complications; I10 Essential (primary) hypertension; Z12.5 Encounter for screening for malignant neoplasm of prostate
CPT/HCPCS: 36415; 80053; 80061; 81001; 82306; 83036; 84153; 84443; 85025

== ENCOUNTER 2023-08-30 09:42 | Outpatient (AMB) | payer MEDICARE, OTHER, SELFPAY ==
[2023-08-30 09:43] VITALS: BP 110/80; PULSE 55; O2SAT 97; BMI 37.4
--- NOTE | 2023-08-30 09:43 | MHC.PC.OV ---
Vital Signs 08/30/23 09:43 Height 5 ft 5 in Weight 225 lb BMI 37.4 BP 110/80 Blood Pressure Location Lt brachial Position Sitting Pulse 55 Pulse Source Pulse Oximeter Pulse Oximetry (%) 97 Oxygen Delivery Method Room Air Intake Visit Reasons: Follow Up Drafter Detail Required: No Delicatessen Slicer: Not Required per policy Accompanied by: Self / Same As Patient Allergies Sulfa (Sulfonamide Antibiotics) [SULFA (SULFONAMIDE ANTIBIOTICS)] Allergy (Unknown, Verified 08/30/23 10:06) RASH, hives Medication List - Last Reconciled 08/30/23 by Sascha Perkins MD alprostadil ([place]) 1,000 mcg intra-urethral ONCE PRN 30 days antiox.mv [id number] [id number] mg (I-Caps) 1 cap PO BID atenolol 25 mg PO DAILY blood pressure monitor (Blood Pressure Kit) As directed cholecalciferol (vitamin D3) 25 mcg PO DAILY cyanocobalamin (vitamin B-12) 1,000 mcg PO DAILY isosorbide mononitrate ER 30 mg PO DAILY lisinopril 10 mg PO DAILY simvastatin 40 mg PO BEDTIME 90 days tadalafil 10 mg PO DAILY 90 days Tobacco use date assessed: 08/30/23 Fall risk assessment: No Falls in past year Last assessed Fall Risk: 08/30/23 Dental Screening Dental Screen Date: 08/30/23 Did you have a dental visit in the last 12 months?: Yes Did you have a dental problem in the last 6 months where you did not have access to dental care?: No Was dental information given to patient?: Patient has dentist HPI Follow Up HPI Details Patient comes in today for his follow up visit States that he feels okay He denies any headaches or dizziness Denies any chest pains, no SOB No nausea/vomiting, no abdominal pain No change in bowel habits noted Still has some problems with urinary frequency and nocturia but these have improved significantly with Tadalafil 10 mg QD - he is now seeing Dr. Chavez for urology follow up He had his follow up labs done a few days ago - to discuss his results [facility] Medical History Coronary artery disease Obesity (BMI 30-39.9) Erectile dysfunction Meralgia paresthetica of left side Vitamin B12 deficiency Vitamin D deficiency Benign prostatic hyperplasia GERD without esophagitis Impaired fasting glucose Pure hypercholesterolemia Benign essential hypertension Surgical History History of prostate surgery (~04/2017) Family History Father Cardiovascular disease Mother Hypertension Social History Housing: House Alcohol intake: current Alcohol intake frequency: a few times a week Alcohol type: wine Patient Tobacco Use Status: Current someday Tobacco user Tobacco use type: Cigar e-Cigarette/Vaping Use: Never Used Second Hand Smoke Exposure: Yes service: No Current occupational status: employed Cognitive needs: No Hearing needs: No Vision needs: Yes (glasses) Questionnaire PHQ-9 Over the last 2 weeks, how often have you been bothered by any of the following problems? 1. Little interest or pleasure in doing things: not at all 2. Feeling down, depressed, or hopeless: not at all 3. Trouble falling or staying asleep, or sleeping too much: not at all 4. Feeling tired or having little energy: not at all 5. Poor appetite or overeating: not at all 6. Feeling bad about yourself - or that you are a failure or have let yourself or your family down: not at all 7. Trouble concentrating on things, such as reading the newspaper or watching television: not at all 8. Moving or speaking so slowly that other people could have noticed. Or the opposite - being so fidgety or restless that you have been moving around a lot more than usual: not at all 9. Thoughts that you would be better off or of hurting yourself in some way: not at all Total score: 0 Depression Screening Interpretation: Negative Depression Screening Done: Yes 90093 - PHQ-9 Billing: Yes Source: Developed by Drs. Julio Wagoner, Eileen Vides, Grover Thorne and colleagues, with an educational zion from [employer]. Thrive Questionnaire Date Thrive assessed: 08/30/23 I am a: Patient What is your living situation today?: I have a steady place to live Within the past 12 months, did the food you bought not last and you didn't have the money to get more?: Never true Within the past 12 months, did you worry whether your food would run out before you got money to buy more?: Never true Do you have trouble paying for medicines?: No Do you have trouble getting transportation to medical appointments?: No Do you have trouble paying your heating and electricity bill?: No Do you have trouble taking care of your child, family member or friend?: No Do you have trouble with day-to-day activities such as bathing, preparing meals, shopping, managing finances, etc.?: No Are you currently unemployed and looking for a job?: No Are you interested in more education?: No Please select the resources that you would like help with: None Currently or been in a relationship where the following occur: no concerns reported THRIVE Score: 0 AUDIT C Alcohol Use Questionnaire (AUDIT-C) 1. How often do you have a drink containing alcohol?: 2-3 times a week 2. How many drinks containing alcohol do you have on a typical day when you are drinking?: 1 or 2 3. How often do you have six or more drinks on one occasion?: Never Total Score: 3 Score Reviewed/Action Taken: Yes KODI-7 AMB Questionnaire KODI-7 Date KODI - 7 assessed: 08/30/23 Feeling nervous, anxious, or on edge: 0 = Not at all Not being able to stop or control worryin = Not at all Worrying too much about different things: 0 = Not at all Trouble relaxin = Not at all Being so restless that it is hard to sit still: 0 = Not at all Becoming easily annoyed or irritable: 0 = Not at all Feeling afraid as if something awful might happen: 0 = Not at all Total KODI-7 score (0-4 normal; 5-9 mild; 10-14 moderate; 15-21 severe): 0 Source: Developed by Drs. Julio Wagoner, Eileen Vides, Grover Thorne and colleagues, with an educational zion from [employer]. Review of Systems Const Denies chills, Denies fatigue, Denies fever(s) and Denies headache(s) ENT Denies dysphagia, Denies dizziness, Denies otalgia, Denies headache(s), Reports neck pain (on and off) and Denies sore throat Card Denies chest pain, Denies palpitations and Denies dyspnea Resp Denies cough and Denies dyspnea GI Denies abdominal pain, Denies constipation, Denies dysphagia, Denies heartburn, Denies diarrhea, Denies nausea and Denies vomiting Denies dysuria, Reports nocturia (improved somewhat with Rx) and Reports urinary frequency (improved somewhat with Rx) Musc Reports back pain, Reports neck pain (on and off) and Denies tingling Skin/Breast Denies rash Neuro Denies dizziness, Denies headache(s) and Denies tingling Endo Denies fatigue and Denies palpitations Samir/Lymph Details: (+) varicose veins on both legs Physical exam (Primary Care) Vital Signs: Last Vital Signs Pulse 55 08/30/23 09:43 BP 110/80 08/30/23 09:43 Pulse Ox 97 08/30/23 09:43 Oxygen Delivery Method Room Air 08/30/23 09:43 BMI result Body Mass Index 37.4 Tobacco/Smoking Status: Tobacco use Status Tobacco use date assessed 08/30/23 08/30/23 09:46 Patient Tobacco Use Status Current someday Tobacco 08/30/23 09:46 Tobacco use type Cigar 08/30/23 09:46 e-Cigarette/Vaping Use Never Used 08/30/23 09:46 PHQ-9: PHQ-9 Score PHQ-9: Total score 0 08/30/23 09:49 Depression Screening Interpretation: Negative Thrive Assessment: Date of Thrive Assessment Date Thrive assessed 08/30/23 08/30/23 09:46 Currently or been in a relationship where the following occur: no concerns reported Const General: no acute distress and alert HENMT Ears: TM's normal bilaterally and EAC's normal Throat: Yes posterior oropharynx normal and Yes tonsils normal (no TP congestion) Neck Neck: Yes no lymphadenopathy and Yes supple Thyroid: Thyroid normal Resp Auscultation: clear to auscultation bilaterally, no rales and no wheezes Cardio Rate: regular rate Rhythm: regular rhythm Heart sounds: no murmurs GI Palpation (GI): Soft to palpation and nontender Auscultation: normal bowel sounds General: Yes no CVA tenderness Back/Spine/Pelvis Back: no CVA tenderness Cervical Spine: Cervical spine tenderness (mild) Thoracic/Lumbar Spine: thoracic spinal tenderness (mild) Skin Rashes: no rashes Extrem Other: (+) prominent varicose veins over both lower extremities General: Yes no clubbing, cyanosis or edema Results Reviewed Results Reviewed: Laboratory Tests 08/24/23 08:10 WBC 5.7 Hgb 14.0 Hct 42.8 Plt Count 140 L Sodium 141 Potassium 3.9 Creatinine 0.95 Estimated GFR > 60 Fasting Glucose 105 H Hemoglobin A1c % 5.9 Calcium 8.8 D AST 17 ALT 18 Triglycerides 121 Cholesterol 140 LDL Cholesterol, Calc 75 HDL Cholesterol 41 Prostate Specific Ag 1.18 25-OH Vitamin D Total 25.5 L TSH 1.42 Ur Specific [place] 1.020 Urine Protein Negative Urine Glucose (UA) Negative Urine Blood Negative Urine Nitrite Negative Ur Leukocyte Esterase Trace H Assessment and Plan Assessment & Plan (1) Coronary artery disease: Code(s): I25.10 - Atherosclerotic heart disease of [place] coronary artery without angina pectoris Qualifiers: Coronary Disease-Associated Artery/Lesion type: [place] artery [place] vs. transplanted heart: [place] heart Associated angina: without angina Qualified Code(s): I25.10 - Atherosclerotic heart disease of [place] coronary artery without angina pectoris Plan: Continue Isosorbide Mononitrate ER 30 mg QD Cardiac stress test done about 3 years ago came back negative Was recommended by cardiology to continue long-acting nitrates for maintenance therapy Follow up with cardiology as scheduled (2) Pure hypercholesterolemia: Code(s): E78.00 - Pure hypercholesterolemia, unspecified Plan: Results of his labs done a few days ago reviewed and discussed with patient Reinforced low cholesterol diet Continue Simvastatin 40 mg QD Will recheck his labs and fasting lipids in 6 months for follow up (3) Benign essential hypertension: Code(s): I10 - Essential (primary) hypertension Plan: Reinforced low sodium diet - goal is systolic BP of at least 130 to 140 mm or less Continue Lisinopril 10 mg QD and Atenolol 25 mg QD (4) Impaired fasting glucose: Code(s): R73.01 - Impaired fasting glucose Plan: HgbA1c has increased slightly to 5.9% on his labs done a few days ago; was at 5.6% a few months ago Reinforced low calorie diet/exercise as tolerated (5) GERD without esophagitis: Code(s): K21.9 - Gastro-esophageal reflux disease without esophagitis Plan: Dietary restrictions reinforced (6) Vitamin D deficiency: Code(s): E55.9 - Vitamin D deficiency, unspecified Plan: Improving - continue Vitamin D3 2000 units daily (7) Radiculopathy affecting upper extremity: Code(s): M54.10 - Radiculopathy, site unspecified Plan: Still has on and off symptoms but states that these have not gotten any worse lately Cervical spine x-rays done earlier this year (April 2022) revealed (+) mild degenerative disc disease at C4-C5 and moderate degenerative disc disease seen at C5-C6 and C6-C7. There is also (+) multi-level cervical spondylosis noted Discussed that his riding a motorcycle often may also be contributing to these symptoms as he tends to notice these more often after he goes out for lengthy motorcycle rides - advised that the constant vibration in his hands from the steering handles may be contributing to these symptoms May also need to consider NCV & EMG if his symptoms persist or worsen (8) Thoracic spondylosis: Code(s): M47.814 - Spondylosis without myelopathy or radiculopathy, thoracic region Plan: He still has on and off back pain but states that his back symptoms have been mostly manageable lately Past thoracic spine x-rays have revealed (+) spondylosis Repeat thoracic spine x-rays done last year revealed (+) multi-level thoracolumbar spondylosis. The thoracic disc spaces are relatively well-maintained and there is also a mild to moderate thoracolumbar dextroscoliosis noted (9) Varicose veins of both lower extremities with pain: Code(s): I83.813 - Varicose veins of bilateral lower extremities with pain Plan: He was referred to vascular surgery previously but he states that he did not pursue this further as his symptoms have subsided shortly after his last visit States that he would like to put his on hold for now as he does not really want to have any surgery done at this time He is advised to call again when his symptoms start him bother him again (10) Vitamin B12 deficiency: Code(s): E53.8 - Deficiency of other specified B group vitamins Plan: Continue OTC Vitamin B12 tablets 1000 mcg daily (11) Meralgia paresthetica of left side: Code(s): G57.12 - Meralgia paresthetica, left lower limb Plan: Symptoms stable - reminded again that losing weight and wearing loose clothings can help alleviate or mitigate his symptoms (12) Benign prostatic hyperplasia: Code(s): N40.0 - Benign prostatic hyperplasia without lower urinary tract symptoms Qualifiers: Lower urinary tract symptom presence: unspecified whether lower urinary tract symptoms present Qualified Code(s): N40.0 - Benign prostatic hyperplasia without lower urinary tract symptoms Plan: Patient felt that his symptoms have not really improved much with his minimally invasive prostate surgery done a few years ago, as he continues to wake up a couple of times a night to use the bathroom He was started on Tadalafil 10 mg QD (lower dose because he is on a long-acting nitrate) by Dr. Chavez and states that his symptoms have improved a lot with his Rx Follow up with urology (Dr. Chavez) as scheduled (13) Erectile dysfunction: Code(s): N52.9 - Male erectile dysfunction, unspecified Qualifiers: Erectile dysfunction type: unspecified Qualified Code(s): N52.9 - Male erectile dysfunction, unspecified Plan: Follow up with urology as scheduled (14) Obesity (BMI 30-39.9): Code(s): E66.9 - Obesity, unspecified Plan: Reinforced diet/exercise as tolerated/lose weight Plan Follow up in 6 months Orders: Orders Complete Blood Count Auto Diff 02/11/24 D64.9 - Anemia, unspecified Comprehensive [place]. Panel Fast 02/11/24 E78.00 - Pure hypercholesterolemia, unspecified Lipid Panel 02/11/24 E78.00 - Pure hypercholesterolemia, unspecified TSH reflex Free T4 02/11/24 E78.00 - Pure hypercholesterolemia, unspecified Vitamin B12 and Folate 02/11/24 E53.8 - Deficiency of other specified B group vitamins Hemoglobin A1c 02/11/24 R73.01 - Impaired fasting glucose UA CC w/rflx Micro + Cult 02/11/24 R30.0 - Dysuria Vitamin D 25-OH Total 02/11/24 E55.9 - Vitamin D deficiency, unspecified Coding Level of Care Code Est Pt Level 4 (80854) Complex EM visit Add On G2211 Diagnoses Coronary artery disease involving [place] coronary artery of [place] heart without angina pectoris I25.10 Coronary Disease-Associated Artery/Lesion type: [place] artery [place] vs. transplanted heart: [place] heart Associated angina: without angina Pure hypercholesterolemia E78.00 Benign essential hypertension I10 Impaired fasting glucose R73.01 GERD without esophagitis K21.9 Vitamin D deficiency E55.9 Radiculopathy affecting upper extremity M54.10 Thoracic spondylosis M47.814 Varicose veins of both lower extremities with pain I83.813 Vitamin B12 deficiency E53.8 Meralgia paresthetica of left side G57.12 Benign prostatic hyperplasia, unspecified whether lower urinary tract symptoms present N40.0 Lower urinary tract symptom presence: unspecified whether lower urinary tract symptoms present Erectile dysfunction, unspecified erectile dysfunction type N52.9 Erectile dysfunction type: unspecified Obesity (BMI 30-39.9) E66.9
== END 2023-08-30 10:25 | disposition home or self-care (01) ==
PROVIDERS: PCP Internal Medicine; Visit Provider Internal Medicine
DX: I25.10 Atherosclerotic heart disease of native coronary artery without angina pectoris (principal); E78.00 Pure hypercholesterolemia, unspecified; I10 Essential (primary) hypertension; R73.01 Impaired fasting glucose; K21.9 Gastro-esophageal reflux disease without esophagitis; E55.9 Vitamin D deficiency, unspecified; M54.10 Radiculopathy, site unspecified; M47.814 Spondylosis without myelopathy or radiculopathy, thoracic region; I83.813 Varicose veins of bilateral lower extremities with pain; E53.8 Deficiency of other specified B group vitamins; G57.12 Meralgia paresthetica, left lower limb; N40.0 Benign prostatic hyperplasia without lower urinary tract symptoms
CPT/HCPCS: 99214; G2211

== ENCOUNTER 2023-09-23 12:01 | Outpatient (REF) | payer MEDICARE, OTHER, SELFPAY ==
[2023-09-23 13:38] LABS: Appearance Urine Cloudy; Color Urine Dark Yellow; Glucose Urine UA Negative (Negative); Leukocyte Esterase Urine Trace (Negative); Nitrite Urine Negative (Negative); Specific Gravity - Urine 1.025 (1.005-1.025); UMIC TRIGGER UA YES; Urine Blood Large (3+) (Negative); Urine Ketones Trace mg/dL (Negative); Urine Protein 30 (1+) mg/dL (Neg-Trace)
[2023-09-23 13:44] LABS: Bacteria Urine None Seen (None Seen); Hyaline Casts Urine 0-2 /LPF (0-2); RBC Urine >20 /HPF (0-2); Squamous Epithelial Cell Urine 0-2 /HPF (0-2); WBC Urine 0-5 /HPF (0-5)
== END 2023-09-23 12:02 | disposition home or self-care (01) ==
LOC: HO.10HDLNP 12:01
PROVIDERS: Visit Provider Urology
DX: N40.0 Benign prostatic hyperplasia without lower urinary tract symptoms (principal)
CPT/HCPCS: 81001; 87086

== ENCOUNTER 2023-10-25 08:52 | Outpatient (AMB) | payer MEDICARE, OTHER, SELFPAY ==
--- NOTE | 2023-10-25 09:08 | A.OFFVIS_ITS ---
Intake Visit Reasons: cystoscopy(Hematuria/Neg UTI) Intake Note: Patient is Present for Cystoscopy Urology Med: Antibiotic Allergy: Blood Thinner: URO- G Disposable Cystoscope lot: [id number] exp:05/12/2026 Allergies Sulfa (Sulfonamide Antibiotics) [SULFA (SULFONAMIDE ANTIBIOTICS)] Allergy (Unknown, Verified 12/28/23 13:23) RASH, hives HPI Comments Details: Benja is a pleasant male. He is a patient of Dr. Perkins. He seen for the following urologic conditions - lower urinary tract symptoms - erectile dysfunction Did notice that bladder control was improved with 5 mg daily tadalafil. Less urgency and less frequency Had come off medication recently has had noticed trace blood in his urine after his trip back from [place] Thinks this may have been secondary to dehydration Is aware of the interaction between tadalafil and isosorbide Takes these medications during the day Blood pressure stable Discussed use of penile constriction bands for venous leak. Printed information provided to allow him to order. Would like to proceed with GreenLight laser prostatectomy Erectile dysfunction Previously use of MUSE Prescription provided Prior daily tadalafil Microscopic hematuria [facility] Medical History (Updated 12/28/23 @ 14:11 by Kendall Chavez MD) Coronary artery disease Obesity (BMI 30-39.9) Erectile dysfunction Meralgia paresthetica of left side Vitamin B12 deficiency Vitamin D deficiency Benign prostatic hyperplasia GERD without esophagitis Impaired fasting glucose Pure hypercholesterolemia Benign essential hypertension Surgical History History of prostate surgery (~04/2017) Family History Father Cardiovascular disease Mother Hypertension Social History Housing: House Are you a primary menagerie caretaker to a significant other at home: No Do you presently have visiting nurse or other home services: No Alcohol intake: current Alcohol intake frequency: a few times a week Alcohol type: wine Patient Tobacco Use Status: Current everyday Tobacco user Tobacco use type: Cigar Cigarettes Per Day: 1 e-Cigarette/Vaping Use: Never Used Second Hand Smoke Exposure: Yes service: No Current occupational status: employed Cognitive needs: No Hearing needs: No Vision needs: Yes (glasses) Review of Systems Const Denies chills and Denies fever(s) Card Reports no additional complaints and Denies syncope Resp Denies cough GI Denies abdominal pain and Denies heartburn Reports as per HPI and Denies change in libido Neuro Denies syncope Psych Denies change in libido Endo Denies change in libido Physical Exam Const General: cooperative, healthy appearing, comfortable and no acute distress Orientation/consciousness: patient oriented x3 HEENT Face and sinus: Yes normal facial exam Mouth: moist mucous membranes Neck Neck: Yes normal visual inspection, Yes full ROM and Yes trachea midline Chest Chest palpation & inspection: normal inspection of the chest Resp Effort & Inspection: normal respiratory effort, able to speak in complete sentences and no respiratory distress GI Inspection: Yes normal to inspection Back/Spine/Pelvis Cervical Spine: normal cervical lordosis Thoracic/Lumbar Spine: thoracic and lumbar spine normal to inspection Skin General skin exam: no rashes or lesions noted Neuro General: patient oriented x3, gait normal, tone normal and moves all extremities Extrem General: Yes normal to inspection and Yes capillary refill normal Office Procedures Cystoscopy Consent Discussed risk and benefit or proposed procedure with the patient. Information consent for procedure given to the patient. Discussed technical aspects, risks, benefits and alternatives in full. Addressed all of the patient's questions and concerns regarding the procedure. The patient demonstrated knowledge and understanding. They wish to proceed with this procedure. Preparation The patient was prepped in the usual manner. A electrical logging operator was present and in the room. Genitalia was prepped with betadine solution in a sterile manner. Lidocaine Jelly 2% was placed into the urethra and 16Fr flexible Olympus cystoscope was inserted into the meatus after adequate lubrication. [id number] DISPOSABLE SCOPE URO-G FLEXIBLE SCOPE Procedure code (CPT) selection complete Office Meds lidocaine HCl 2 % mucosal jelly in applicator Performing Provider: Kendall Chavez MD Performing Location: [facility] Administered by: Vinicio Castro LPN on 10/25/23 09:21 Dose Route Admin Location Dispensed Lot Number Expiration Date [facility] [employer] Stitcher 10 mL intra-urethral 10 mL nitrofurantoin monohydrate/macrocrystals 100 mg capsule Performing Provider: Kendall Chavez MD Performing Location: [facility] Administered by: Vinicio Castro LPN on 10/25/23 09:21 Dose Route Admin Location Dispensed Lot Number Expiration Date NDC [employer] Stitcher 100 mg PO 1 cap naproxen 500 mg tablet Performing Provider: Kendall Chavez MD [facility] Administered by: Vinicio Castro LPN on 10/25/23 09:21 Dose Route Admin Location Dispensed Lot Number Expiration Date NDC [employer] 500 mg PO 1 tab Results AMB Urinalysis, Automated UA Leukoctes 0 Hector/uL Last Edit by MADDI Moreira on 10/25/23 09:20 UA Nitrite Negative Last Edit by KAILEE MoreiraA on 10/25/23 09:20 UA Urobilinogen 0.2 mg/dL Last Edit by MADDI Moreira on 10/25/23 09:2 0 UA Protein 15 mg/dL Last Edit by MADDI Moreira on 10/25/23 09:20 UA pH 6.0 Last Edit by KAILEE MoreiraA on 10/25/23 09:20 UA Blood 200 Esa/uL Last Edit by MADDI Moreira on 10/25/23 09:20 UA Specific [place] 1.015 Last Edit by KAILEE MoreiraA on 10/25/23 09: 20 UA Ketone Negative Last Edit by MADDI Moreira on 10/25/23 09:20 UA Bilirubin 0 mg/dL Last Edit by KAILEE MoreiraA on 10/25/23 09:20 UA Glucose 0 mg/dL Last Edit by MADDI Moreira on 10/25/23 09:20 Results Reviewed Results Reviewed: Laboratory Last Values Urine pH (Auto) 6.0 10/25/23 09:19 Specific [place] (Auto) 1.015 10/25/23 09:19 Urine Protein (Auto) 15 mg/dL 10/25/23 09:19 Glucose (UA)(Auto) 0 mg/dL 10/25/23 09:19 Urine Ketones (Auto) Negative 10/25/23 09:19 Urine Blood (Auto) 200 Esa/uL 10/25/23 09:19 Urine Nitrite (Auto) Negative 10/25/23 09:19 Urine Bilirubin (Auto) 0 mg/dL 10/25/23 09:19 Urine Urobilinogen (Auto) 0.2 mg/dL 10/25/23 09:19 Leukocyte Esterase (Auto) 0 Hector/uL 10/25/23 09:19 Assessment & Plan Assessment & Plan (1) Erectile dysfunction: Code(s): N52.9 - Male erectile dysfunction, unspecified Category: Medical Qualifiers: Erectile dysfunction type: unspecified Qualified Code(s): N52.9 - Male erectile dysfunction, unspecified (2) Benign prostatic hyperplasia: Code(s): N40.0 - Benign prostatic hyperplasia without lower urinary tract symptoms Category: Medical Qualifiers: Lower urinary tract symptom presence: unspecified whether lower urinary tract symptoms present Qualified Code(s): N40.0 - Benign prostatic hyperplasia without lower urinary tract symptoms Plan We discussed the nature of the decision and reasonable options for performing a prostate intervention. Interventions include TURP, GreenLight laser enucleation of the prostate, GreenLight laser ablation of the prostate, transurethral incision of the prostate, and I-Tend prostate procedure. Options such as medical therapy were discussed. The relative uncertainties and benefits related to each alternate procedure were adequately discussed. General surgical risks including, but not limited to, pain, bleeding, infection, myocardial infarction, pulmonary embolus, deep vein thrombosis and cerebrovascular accident which may result in further hospitalization were discussed. Full disclosure of the procedure as well as all major risks, benefits and complications were discussed including but not limited to damage to the urethra or bladder neck, recurrent BPH, retrograde ejaculation, bladder infection, urge, de emily frequency, incomplete emptying, dysuria, remote chance of erectile dysfunction, epididymitis, and meatal stenosis. The success rate of the procedure was discussed. Success of the procedure in the short-term does not necessarily guarantee that long-term success will be maintained. Suitable follow up will need to be maintained. The patient showed understanding of discussion. An opportunity was provided for questions to be answered and wishes to proceed with the following procedure. - GreenLight laser Orders: Orders AMB Cystoscopy 10/25/23 N40.0 - Benign prostatic hyperplasia without lower urinary tract symptoms AMB Urinalysis Automated 10/25/23 Z13.9 - Encounter for screening, unspecified Patient Instructions: Imaging studies, laboratory and physical exam results were discussed and reviewed in detail. No major barriers to patient understanding were identified. An opportunity to ask questions regarding the treatment plan was provided. All questions were answered. The patient expressed understanding and agreement with the above treatment plan. The patient is aware they should contact our office by phone for worsening of their current condition or the appearance of new urologic symptoms. Compliance is encouraged with any medications and followup testing that is ordered. It is a privilege to participate in the urologic care of your patient. If you have any questions or concerns regarding treatment for the above conditions, or other urologic issues, please do not hesitate to contact me. The office telephone contact is [phone]. This note is constructed using voice recognition software. While every effort has been made to ensure accuracy port crane operator errors may have been included. Yours sincerely, Dr Kendall Chavez MD, [facility] - Urology Providers of Expert, Compassionate Care for the Genitourinary System Coding Level of Care Code Est Pt Level 4 (61748) Diagnoses Erectile dysfunction, unspecified erectile dysfunction type N52.9 Erectile dysfunction type: unspecified Benign prostatic hyperplasia, unspecified whether lower urinary tract symptoms present N40.0 Lower urinary tract symptom presence: unspecified whether lower urinary tract symptoms present CPT Codes Cystoscopy - CPT: [id number] ([id number])
== END 2023-10-25 10:15 | disposition home or self-care (01) ==
PROVIDERS: PCP Internal Medicine; Visit Provider Urology
DX: N40.0 Benign prostatic hyperplasia without lower urinary tract symptoms (principal); Z13.9 Encounter for screening, unspecified
CPT/HCPCS: 52000; 99214

== ENCOUNTER → 2023-10-25 08:52 | Outpatient (BNVA) | payer MEDICARE, OTHER, SELFPAY | PROVIDERS: PCP Internal Medicine; Visit Provider Urology | DX: N52.9 Male erectile dysfunction, unspecified (principal); N40.0 Benign prostatic hyperplasia without lower urinary tract symptoms | CPT/HCPCS: 52000; 81003; 99212 ==

== ENCOUNTER 2023-11-21 07:58 | Day surgery (SDC) | payer MEDICARE, OTHER, SELFPAY ==
[2023-11-17 13:58] VITALS: BMI 37.0
[2023-11-21] VITALS (7 sets, daily range): BP systolic 160–180; BP diastolic 75–93; PULSE 57–59; RESP 12–16; TEMP 36.6; O2SAT 96–99; BMI 36.3
[2023-11-21] MEDS: Lactated Ringers 1,000 ML 100 ML IVCONT (09:04)
--- NOTE | 2023-11-21 10:33 | HO.ANESPROP2 ---
HPI - Anesthesia Eval Consult details Narrative: for laser prostate PMFSH Active Problems Active Problems: All Active Problems Varicose veins of both lower extremities with pain (Acute) Thoracic spondylosis (Acute) Radiculopathy affecting upper extremity (Acute) Coronary artery disease (Acute) Obesity (BMI 30-39.9) (Acute) Erectile dysfunction (Acute) Meralgia paresthetica of left side (Acute) Vitamin B12 deficiency (Acute) Vitamin D deficiency (Acute) Benign prostatic hyperplasia (Acute) GERD without esophagitis (Acute) Impaired fasting glucose (Acute) Pure hypercholesterolemia (Acute) Benign essential hypertension (Acute) Past Medical History Medical History (Updated 11/17/23 @ 13:57 by Betty Kohler RN) Coronary artery disease Obesity (BMI 30-39.9) Erectile dysfunction Meralgia paresthetica of left side Vitamin B12 deficiency Vitamin D deficiency Benign prostatic hyperplasia GERD without esophagitis Impaired fasting glucose Pure hypercholesterolemia Benign essential hypertension Narrative: exercise-induced chest pain at high effort on his treadmill. refused cardiac cath. sx well managed medically. followed by Dr. Rasmussen. Neg stress test 2022. Family History Family History Father Cardiovascular disease Mother Hypertension Family history of problems with anesthesia: No Surgical History Surgical History History of prostate surgery (~04/2017) History of Problems with Anesthesia: No Social History Social History Housing: House Are you a primary clinical care leader to a significant other at home: No Do you presently have visiting nurse or other home services: No Alcohol intake: current Alcohol intake frequency: a few times a week Alcohol type: wine Patient Tobacco Use Status: Current everyday Tobacco user Tobacco use type: Cigar Cigarettes Per Day: 1 e-Cigarette/Vaping Use: Never Used Second Hand Smoke Exposure: Yes Use of substances other than those prescribed or required for medical reasons: No Are you DNR?: No Advance Directives: No Advance Directives Information Provided: Yes Recently lost weight without trying: No Poor oral hygiene: No service: No Current occupational status: employed Cognitive needs: No Hearing needs: No Vision needs: Yes (glasses) Meds Allergies Allergy/AdvReac Type Severity Reaction Status Date / Time Sulfa (Sulfonamide Allergy Unknown RASH, hives Verified 11/21/23 08:15 Antibiotics) [SULFA (SULFONAMIDE ANTIBIOTICS)] Active Medications: Current Medications Lactated Ringer's (Lr) 1,000 mls @ 100 mls/hr IVCONT .Q10H JOVAN Last Admin: 11/21/23 09:04 Dose: 100 mls/hr Home Medications ?Medication ?Instructions ?Recorded ?Confirmed ?Last Taken ?Type atenolol 25 mg tablet 25 mg PO DAILY 06/16/20 11/21/23 11/21/23 06:00 History cholecalciferol (vitamin D3) 25 25 mcg PO DAILY 06/16/20 11/21/23 Unknown History mcg (1,000 unit) capsule cyanocobalamin (vitamin B-12) 1,000 mcg PO DAILY 06/16/20 11/21/23 Unknown History 1,000 mcg capsule isosorbide mononitrate 30 mg 30 mg PO DAILY 06/16/20 11/21/23 Unknown History tablet,extended release 24 hr lisinopril 10 mg tablet 10 mg PO DAILY 06/16/20 11/21/23 Unknown History nitroglycerin 0.4 mg sublingual 0.4 mg sublingual DIRECTED 11/17/23 11/21/23 Unknown History tablet angina Exam Height,Weight and Vital Signs: Height 5 ft 6 in Weight 102.058 kg Last Vital Signs Temp 97.8 F 11/21/23 08:44 Pulse 59 11/21/23 08:44 Resp 16 11/21/23 08:44 BP 162/82 H 11/21/23 08:44 Pulse Ox 98 11/21/23 08:44 O2 Del Method Room Air 11/21/23 08:44 Airway Mallampati Class: II TM Dist: <=3cm Neck ROM: Full Loose/Missing/Broken Teeth: No Heart: see above Lungs: ok Assessment and Plan Assessment Anesthesia Assessment: Anesthesia Plan Discussed and Chart Reviewed Final Anesthetic Review Family History of Problems with Anesthesia: No History of Problems with Anesthesia: No NPO: Yes ASA Class: III Final Preanesthetic Review: No Changes in Pt Med Stat, Meds/Allgs Chart Reviewed, Consent Obtained/Reviewed and Anes Risks/Benef Reviewed Patient Risk: Intermediate Procedure Risk: Low Anesthetic Plan Anesthetic Plan: GA and Agree w/ Assess. and Plan Disposition: Standard PACU
--- NOTE | 2023-11-21 10:41 | MHC.SHP ---
Pre-Procedural Eval Section A - 24 Hr Update-Section A only Date of Service: 11/21/23 The patient is an INPATIENT: No Changes since office visit: No Cold of Flu in the past 2 weeks, No New Medical Problems, No Changes in Medication and No Patient answered all questions The patient has been examined within 24 hours of the surgical procedure. The History & Physical has been completed within 30 days and I have reviewed it.: Yes Section B - Complete if H&P > 30 days Chief Complaint: Benign prostatic hyperplasia with lower urinary Details of Present Illness: Progressive - green light laser prostatectomy Relevant Family History (Specify if Yes): No Relevant Social History: None Present Medications: see Short Stay Collaborative assessment Medical History: No relevant PMH History of Previous Operations: No relevant previous surgery Allergies: Allergies Allergy/AdvReac Type Severity Reaction Status Date / Time Sulfa (Sulfonamide Allergy Unknown RASH, hives Verified 11/21/23 08:15 Antibiotics) [SULFA (SULFONAMIDE ANTIBIOTICS)] Review of Systems Sugical H&P ROS: Negative: Constitution, Cardiovascular, Respiratory, Neurological, Psychiatric, Hem-Onc, Allergic/Immunologic, Gastrointestinal, Genitourinary, Musculoskeletal, Integumentary, Endocrine and Eyes/Ears/Nose/Throat Exam Surgical H&P Exam: Normal: HEENT, Normal: Heart, Normal: Lungs, Normal: Extremities, Normal: Abdomen, Normal: Skin and Normal: Neurological Plan Diagnosis/Plan: Unchanged (green light laser prostatectomy) I have reviewed the history and physical and performed a pertinent physical examination on my patient. No changes have occurred unless specified. Time Spent With Patient Time: Total time managing care of this patient today ____ minutes.
--- NOTE | 2023-11-21 11:49 | P.OP_ITS ---
Operative Note Operative Note Date of Service: 11/21/23 Narrative: PreOperative Diagnosis: Bladder outlet obstruction Post Operative Diagnosis: Bladder outlet obstruction Procedure: GreenLight Laser Enucleation of the prostate CPT 16079 - redo left side Surgeon: Dr Kendall Chavez Anesthesia: General History of bladder outlet obstruction. Treated with alpha-octavio and other medications. Still with symptoms. On cystoscopy in office has left lobar regrowth. Recommendation for prostate procedure with laser enucleation of prostate. Risks and benefits have been discussed. Focus was placed on development of retrograde ejaculation which is a normal part of this procedure. Procedure: After informed consent was verified the patient was brought to the operating room and placed in a supine position. Anesthesia was administered per protocol. Patient was placed in modified dorsal lithotomy position and prepped and draped in a sterile fashion. Safety pause time-out was confirmed. Antibiotics have been given. A Twenty-four Australian laser cystoscope was inserted per urethra. No abnormalities were found of the anterior and bulbar urethra. The prostatic urethra shows left regrowth. The bladder was examined and both ureteric orifices were seen in their normal positions away from the area of interest. Bladder trabeculation Grade 2/3. Attention was directed to the left lateral lobes. Starting with the patient's left lateral lobe. First the 05:00 o'clock groove was further developed. This was moved in the lateral direction to undermine the tissue on the lateral side running from the bladder neck to the prostate apex. The ureteric orifice was used to guide incisions. Focus was then placed on the laser at the 1 o'clock position to developing a secondary groove down to the level of bladder fibers. The creation of a second deep groove defined a segment of intervening tissue similar to a slice of orange. At the apex of the prostate the 2 grooves were linked the us releasing the intervening tissue. This tissue was then removed with a combination of enucleation and ablation working from the apex toward the bladder neck. After the majority of tissue had been debulked remnant tissue was ablated with the side fire laser and the curve of the prostate followed up each side wall clearly defining the anterior remnant strip that remained between the 11 and 1 o'clock positions. When this was had been completed debris and pieces of prostate were removed from the bladder with irrigation. Both ureteric orifices were reviewed again in shown to be patent in away from any areas of energy damage. The apical area was reviewed in any stray ooze was controlled. A 22 Australian 30 cc balloon Restrepo catheter was placed over a stylet into the bladder. Clear efflux was obtained upon irrigation with a Tasha piston syringe. 50 cc was placed in the balloon and gentle traction was placed. A snap was used to hold tension on the catheter to control bleeding during patient moved and transported. A drainage bag was placed. Once transportation is complete to the PACU the snap will be removed. The patient tolerated the procedure well, he was extubated in the operating and transferred in a stable condition to the recovery area. Total Power 134 kW Lasing time 19:56 Pathology: Prostate tissue Drains: Restrepo catheter
[2023-11-21] MEDS: Acetaminophen 325 MG TABLET 650 MG PO (12:10)
[2023-11-21] MEDS: oxyCODONE HCl Immed Release 5 MG TABLET PO (12:11)
== END 2023-11-21 13:46 | disposition home or self-care (01) ==
PROVIDERS: PCP Internal Medicine; Visit Provider Urology
PROC: (CPT 52648; principal; 2023-11-21 09:30)
DX: N40.1 Benign prostatic hyperplasia with lower urinary tract symptoms (principal); N13.8 Other obstructive and reflux uropathy; N52.9 Male erectile dysfunction, unspecified; I10 Essential (primary) hypertension; E78.00 Pure hypercholesterolemia, unspecified; R73.01 Impaired fasting glucose; I25.10 Atherosclerotic heart disease of native coronary artery without angina pectoris; Z79.899 Other long term (current) drug therapy; Z88.2 Allergy status to sulfonamides; Z98.890 Other specified postprocedural states; F17.290 Nicotine dependence, other tobacco product, uncomplicated
CPT/HCPCS: 52649; 88305; J1956; J2704; J3010

== ENCOUNTER → 2023-11-21 07:58 | Outpatient (BNV) | payer MEDICARE, OTHER, SELFPAY | PROVIDERS: PCP Internal Medicine; Visit Provider Urology | DX: N40.1 Benign prostatic hyperplasia with lower urinary tract symptoms (principal) | CPT/HCPCS: 52649 ==

== ENCOUNTER → 2023-11-24 09:43 | Outpatient (BNVA) | payer MEDICARE, OTHER, SELFPAY | PROVIDERS: PCP Internal Medicine; Visit Provider Urology | DX: N40.0 Benign prostatic hyperplasia without lower urinary tract symptoms (principal); N52.9 Male erectile dysfunction, unspecified | CPT/HCPCS: 51700; 51798 ==

== ENCOUNTER 2023-12-28 13:14 | Outpatient (AMB) | payer MEDICARE, OTHER, SELFPAY ==
--- NOTE | 2023-12-28 13:20 | MHC.OFFVIS ---
Intake Visit Reasons: Post Op [facility] (11/21) Intake Note: Patient is present for POST-OP [facility] Medication:VITAMIN B12 Antibiotic Allergy:SULFA Blood Thinner:NONE Receiving Room Clerk Required: No Allergies Sulfa (Sulfonamide Antibiotics) [SULFA (SULFONAMIDE ANTIBIOTICS)] Allergy (Unknown, Verified 12/28/23 13:23) RASH, hives HPI Comments Details: Benja is a pleasant male. He is a patient of Dr. Perkins. He seen for the following urologic conditions - lower urinary tract symptoms - erectile dysfunction UTI Urine culture Levaquin 7 days Six-month follow-up Discussed his car collection. Drives E5 [address], C7 Shakeel Did notice that bladder control was improved with 5 mg daily tadalafil. Less urgency and less frequency Had come off medication recently has had noticed trace blood in his urine after his trip back from [place] Thinks this may have been secondary to dehydration Is aware of the interaction between tadalafil and isosorbide Takes these medications during the day Blood pressure stable Erectile dysfunction Previously use of MUSE Prescription provided Trial daily tadalafil Microscopic hematuria [facility] Medical History (Updated 12/28/23 @ 14:11 by Kendall Chavez MD) Coronary artery disease Obesity (BMI 30-39.9) Erectile dysfunction Meralgia paresthetica of left side Vitamin B12 deficiency Vitamin D deficiency Benign prostatic hyperplasia GERD without esophagitis Impaired fasting glucose Pure hypercholesterolemia Benign essential hypertension Surgical History History of prostate surgery (~04/2017) Family History Father Cardiovascular disease Mother Hypertension Social History Housing: House Are you a primary critical care specialist to a significant other at home: No Do you presently have visiting nurse or other home services: No Alcohol intake: current Alcohol intake frequency: a few times a week Alcohol type: wine Patient Tobacco Use Status: Current everyday Tobacco user Tobacco use type: Cigar Cigarettes Per Day: 1 e-Cigarette/Vaping Use: Never Used Second Hand Smoke Exposure: Yes service: No Current occupational status: employed Cognitive needs: No Hearing needs: No Vision needs: Yes (glasses) Review of Systems Const Denies chills and Denies fever(s) Card Reports no additional complaints and Denies syncope Resp Denies cough GI Denies abdominal pain and Denies heartburn Reports as per HPI and Denies change in libido Neuro Denies syncope Psych Denies change in libido Endo Denies change in libido Physical Exam Const General: cooperative, healthy appearing, comfortable and no acute distress Orientation/consciousness: patient oriented x3 HEENT Face and sinus: Yes normal facial exam Mouth: moist mucous membranes Neck Neck: Yes normal visual inspection, Yes full ROM and Yes trachea midline Chest Chest palpation & inspection: normal inspection of the chest Resp Effort & Inspection: normal respiratory effort, able to speak in complete sentences and no respiratory distress GI Inspection: Yes normal to inspection Back/Spine/Pelvis Cervical Spine: normal cervical lordosis Thoracic/Lumbar Spine: thoracic and lumbar spine normal to inspection Skin General skin exam: no rashes or lesions noted Neuro General: patient oriented x3, gait normal, tone normal and moves all extremities Extrem General: Yes normal to inspection and Yes capillary refill normal Results AMB Urinalysis, Automated UA Leukoctes 125 Hector/uL Last Edit by STACIE Vanessa on 12/28/23 13:34 UA Nitrite Positive Last Edit by STACIE Vanessa on 12/28/23 13:34 UA Urobilinogen 0.2 mg/dL Last Edit by STACIE Vanessa on 12/28/23 13:34 UA Protein 300 mg/dL Last Edit by STACIE Vanessa on 12/28/23 13:34 UA pH 5.5 Last Edit by STACIE Vanessa on 12/28/23 13:34 UA Blood 200 Esa/uL Last Edit by STACIE Vanessa on 12/28/23 13:34 UA Specific [place] 1.030 Last Edit by STACIE Vanessa on 12/28/23 13:34 UA Ketone Positive Last Edit by STACIE Vanessa on 12/28/23 13:34 UA Bilirubin 1 mg/dL Last Edit by STACIE Vanessa on 12/28/23 13:34 UA Glucose 0 mg/dL Last Edit by STACIE Vanessa on 12/28/23 13:34 Results Reviewed Results Reviewed: Laboratory Last Values Urine pH (Auto) 5.5 12/28/23 13:33 Specific [place] (Auto) 1.030 12/28/23 13:33 Urine Protein (Auto) 300 mg/dL 12/28/23 13:33 Glucose (UA)(Auto) 0 mg/dL 12/28/23 13:33 Urine Ketones (Auto) Positive 12/28/23 13:33 Urine Blood (Auto) 200 Esa/uL 12/28/23 13:33 Urine Nitrite (Auto) Positive 12/28/23 13:33 Urine Bilirubin (Auto) 1 mg/dL 12/28/23 13:33 Urine Urobilinogen (Auto) 0.2 mg/dL 12/28/23 13:33 Leukocyte Esterase (Auto) 125 Hector/uL 12/28/23 13:33 Assessment & Plan Assessment & Plan (1) UTI (urinary tract infection), bacterial: Code(s): N39.0 - Urinary tract infection, site not specified; A49.9 - Bacterial infection, unspecified Category: Medical Plan Antibiotics Six-month follow-up PSA Orders: Orders Prostate Specific Antigen 6 Months N40.0 - Benign prostatic hyperplasia without lower urinary tract symptoms AMB Urinalysis Automated Today Z13.9 - Encounter for screening, unspecified Medications: New levofloxacin 500 mg PO DAILY 7 tabs 0RF 7 days A49.9 - Bacterial infection, unspecified, N39.0 - Urinary tract infection, site not specified Discontinued ciprofloxacin HCl Discontinued Reason: Patient Completed Course 500 mg PO BID 14 tabs 0RF Patient Instructions: Imaging studies, laboratory and physical exam results were discussed and reviewed in detail. No major barriers to patient understanding were identified. An opportunity to ask questions regarding the treatment plan was provided. All questions were answered. The patient expressed understanding and agreement with the above treatment plan. The patient is aware they should contact our office by phone for worsening of their current condition or the appearance of new urologic symptoms. Compliance is encouraged with any medications and followup testing that is ordered. It is a privilege to participate in the urologic care of your patient. If you have any questions or concerns regarding treatment for the above conditions, or other urologic issues, please do not hesitate to contact me. The office telephone contact is [phone]. This note is constructed using voice recognition software. While every effort has been made to ensure accuracy detective chief errors may have been included. Yours sincerely, Dr Kendall Chavez MD, [facility] - Urology Providers of Expert, Compassionate Care for the Genitourinary System Coding Level of Care Code Est Pt Level 4 (07853) Diagnoses UTI (urinary tract infection), bacterial N39.0; A49.9
== END 2023-12-28 14:20 | disposition home or self-care (01) ==
PROVIDERS: PCP Internal Medicine; Visit Provider Urology
DX: N39.0 Urinary tract infection, site not specified (principal); A49.9 Bacterial infection, unspecified
CPT/HCPCS: 99024

== ENCOUNTER 2023-12-28 13:14 | Outpatient (REF) | payer MEDICARE, OTHER, SELFPAY | END 2023-12-28 13:15 | disposition home or self-care (01) | LOC: HO.LNP 13:14 | PROVIDERS: PCP Internal Medicine; Visit Provider Urology | DX: N39.0 Urinary tract infection, site not specified (principal); B96.20 Unspecified Escherichia coli [E. coli] as the cause of diseases classified elsewhere; N40.0 Benign prostatic hyperplasia without lower urinary tract symptoms | CPT/HCPCS: 81003; 87086; 87088; 87186; 99212 ==

== ENCOUNTER 2024-02-15 10:09 | Outpatient (REF) | payer MEDICARE, OTHER, SELFPAY ==
[2024-02-15 10:29] LABS: MANUAL DIFF FLAG NO
[2024-02-15 11:17] LABS: Basophils Absolute Auto 0.1 X10*3/uL (0.0-0.2); Eosinophils Absolute Auto 0.2 X10*3/uL (0.0-0.4); Eosinophils Percent Auto 3.6 % (0-4); Hematocrit 42.5 % (42.0-52.0); Hemoglobin 14.2 g/dl (14.0-18.0); Imm Gran Abs Auto 0.03 X10*3/uL (0.00-0.03); Imm Gran Pct Auto 0.5 % (0.0-0.4); Lymphocytes Percent Auto 17.1 % (20-40); Mean Corpuscular HGB Conc 33.4 g/dl (31.0-36.0); Mean Corpuscular Hemoglobin 30.1 pg (27.0-33.0); Mean Corpuscular Volume 90.2 fL (80.0-98.0); Mean Platelet Volume 11.2 fL (9.4-12.4); Monocytes Absolute Auto 0.5 X10*3/uL (0.1-1.2); Neutrophils Absolute Auto 4.2 x10*3/uL (2.0-8.3); Neutrophils Percent Auto 68.8 % (45-73); Platelet Count 155 X10*3/uL (160-400); Red Blood Count 4.71 X10*6/uL (4.60-5.80); Red Cell Distribution Width 13.5 % (11.0-16.0)
[2024-02-15 11:18] LABS: Appearance Urine Clear; Color Urine Yellow; Glucose Urine UA Negative (Negative); Leukocyte Esterase Urine Moderate (2+) (Negative); Nitrite Urine Positive (Negative); PH 5.5 (5.0-9.0); UMIC TRIGGER UACC YES; Urine Blood Negative (Negative); Urine Ketones Negative (Negative); Urine Protein Trace mg/dL (Neg-Trace)
[2024-02-15 11:23] LABS: Estimated Average Glucose 120 mg/dL; Hemoglobin A1C 147.3158 umol/L; Hemoglobin A1c % 5.8 % (<6.0); Total Hemoglobin (HGBA1C) 3721.1984 umol/L
[2024-02-15 11:26] LABS: Bacteria Urine 4+ (None Seen); Hyaline Casts Urine 0-2 /LPF (0-2); RBC Urine 0-2 /HPF (0-2); Squamous Epithelial Cell Urine 0-2 /HPF (0-2); UACC Culture Trigger YES; WBC Urine 21-50 /HPF (0-5)
[2024-02-15 12:17] LABS: Alanine Aminotransferase 31 U/L (0-40); Albumin Level 4.3 g/dL (3.5-5.0); Alkaline Phosphatase 55 U/L (39-117); Anion Gap 10 (12-20); Aspartate Amino Transferase 30 U/L (5-37); Bilirubin Total 0.7 mg/dL (0.0-1.0); Blood Urea Nitrogen 20 mg/dL (9-16); Calcium 9.5 mg/dL (8.4-10.2); Carbon Dioxide 31 mmol/L (22-29); Chloride 102 mmol/L (96-108); Cholesterol 150 mg/dL (<200); Estimated Glomerular Filt Rate > 60; Glucose Fasting 106 mg/dL (60-99); HDL Cholesterol 45 mg/dL (>40); LDL Cholesterol Calculated 76 mg/dL (<100); Sodium 139 mmol/L (135-145); Total Protein 7.2 g/dL (6.5-8.0); Triglycerides 146 mg/dL (<150); Vitamin D 25-OH Total 27.8 ng/mL (>30)
[2024-02-15 12:31] LABS: Folate 7.4 ng/mL (> or = 4.0); Vitamin B12 823 pg/mL (200-900)
== END 2024-02-15 10:10 | disposition home or self-care (01) ==
LOC: HO.LAB 10:09
PROVIDERS: PCP Internal Medicine; Visit Provider Internal Medicine
DX: D64.9 Anemia, unspecified (principal); E78.00 Pure hypercholesterolemia, unspecified; E55.9 Vitamin D deficiency, unspecified; E53.8 Deficiency of other specified B group vitamins; R73.01 Impaired fasting glucose; R30.0 Dysuria; R82.79 Other abnormal findings on microbiological examination of urine
CPT/HCPCS: 36415; 80053; 80061; 81001; 82306; 82607; 82746; 83036; 84443; 85025; 87086; 87088; 87186

== ENCOUNTER 2024-02-17 09:28 | Outpatient (AMB) | payer MEDICARE, OTHER, SELFPAY ==
[2024-02-17 09:37] VITALS: BP 132/68; PULSE 62; O2SAT 97; BMI 35.1
--- NOTE | 2024-02-17 09:37 | MHC.PC.OV ---
Vital Signs 02/17/24 09:37 Height 5 ft 6 in Weight 217 lb 6 oz BMI 35.1 BP 132/68 Blood Pressure Location Lt brachial Position Sitting Pulse 62 Pulse Source Pulse Oximeter Pulse Oximetry (%) 97 Oxygen Delivery Method Room Air Intake Visit Reasons: HTN, CAD, hyperlipidemia, IFG Coffee Roaster Required: No Accompanied by: Self / Same As Patient Allergies Sulfa (Sulfonamide Antibiotics) [SULFA (SULFONAMIDE ANTIBIOTICS)] Allergy (Unknown, Verified 02/17/24 09:58) RASH, hives Medication List - Last Reconciled 02/17/24 by Sascha Perkins MD atenolol 25 mg PO DAILY blood pressure monitor (Blood Pressure Kit) As directed cholecalciferol (vitamin D3) 25 mcg PO DAILY cyanocobalamin (vitamin B-12) 1,000 mcg PO DAILY isosorbide mononitrate ER 30 mg PO DAILY lisinopril 10 mg PO DAILY nitroglycerin 0.4 mg sublingual DIRECTED simvastatin 40 mg PO BEDTIME 90 days Tobacco use date assessed: 08/30/23 Fall risk assessment: No Falls in past year Last assessed Fall Risk: 02/17/24 Dental Screening Dental Screen Date: 08/30/23 HPI HTN, CAD, hyperlipidemia, IFG HPI Details Patient comes in today for his follow up visit States that he feels okay He denies any headaches or dizziness Denies any chest pains, no SOB No nausea/vomiting, no abdominal pain No change in bowel habits noted States that he had prostate surgery back in October 2023 and is still experiencing some urinary symptoms, more recently some urge incontinence and some dysuria Needs his Simvastatin Rx refilled He had his follow up labs done a couple of days ago - to discuss his results [facility] Medical History (Updated 02/17/24 @ 10:41 by Sascha Perkins MD) Cervical spondylosis with radiculopathy Coronary artery disease Obesity (BMI 30-39.9) Erectile dysfunction Meralgia paresthetica of left side Vitamin B12 deficiency Vitamin D deficiency Benign prostatic hyperplasia GERD without esophagitis Impaired fasting glucose Pure hypercholesterolemia Benign essential hypertension Surgical History History of prostate surgery (~04/2017) Family History Father Cardiovascular disease Mother Hypertension Social History Housing: House Are you a primary vehicle care specialist to a significant other at home: No Do you presently have visiting nurse or other home services: No Alcohol intake: current Alcohol intake frequency: a few times a week Alcohol type: wine Patient Tobacco Use Status: Current everyday Tobacco user Tobacco use type: Cigar Cigarettes Per Day: 1 e-Cigarette/Vaping Use: Never Used Second Hand Smoke Exposure: Yes service: No Current occupational status: employed Cognitive needs: No Hearing needs: No Vision needs: Yes (glasses) Questionnaire PHQ-9 Over the last 2 weeks, how often have you been bothered by any of the following problems? Depression Screening Interpretation: Negative Depression Screening Done: Yes Source: Developed by Drs. Julio Wagoner, Eileen Vides, Grover Thorne and colleagues, with an educational zion from [employer]. Thrive Questionnaire Date Thrive assessed: 08/30/23 THRIVE Score: 0 AUDIT C Alcohol Use Questionnaire (AUDIT-C) 2. How many drinks containing alcohol do you have on a typical day when you are drinking?: 1 or 2 3. How often do you have six or more drinks on one occasion?: Never Total Score: 0 KODI-7 AMB Questionnaire KODI-7 Date KODI - 7 assessed: 08/30/23 Source: Developed by Drs. Julio Wagoner, Eileen Vides, Grover Thorne and colleagues, with an educational zion from [employer]. Review of Systems Const Denies chills, Denies fatigue, Denies fever(s) and Denies headache(s) ENT Denies dysphagia, Denies dizziness, Denies otalgia, Denies headache(s), Reports neck pain (on and off), Denies odynophagia and Denies sore throat Card Denies chest pain, Denies palpitations and Denies dyspnea Resp Denies chest congestion, Denies cough and Denies dyspnea GI Denies abdominal pain, Denies constipation, Denies dysphagia, Denies heartburn, Denies diarrhea, Denies nausea, Denies odynophagia and Denies vomiting Denies dysuria, Reports nocturia (improved slightly from before), Reports urinary frequency (improved slightly from previous) and Reports urinary incontinence (occasionally lately, mostly urge incontinence) Musc Reports back pain, Reports neck pain (on and off) and Denies tingling Skin/Breast Denies rash Neuro Denies dizziness, Denies headache(s) and Denies tingling Endo Denies fatigue and Denies palpitations Samir/Lymph Details: (+) varicose veins on both legs Physical exam (Primary Care) Vital Signs: Last Vital Signs Pulse 62 02/17/24 09:37 BP 132/68 02/17/24 09:37 Pulse Ox 97 02/17/24 09:37 Oxygen Delivery Method Room Air 02/17/24 09:37 BMI result Body Mass Index 35.1 Tobacco/Smoking Status: Tobacco use Status Tobacco use date assessed 08/30/23 02/17/24 09:37 Patient Tobacco Use Status Current everyday Tobacco 02/17/24 09:37 Tobacco use type Cigar 02/17/24 09:37 e-Cigarette/Vaping Use Never Used 02/17/24 09:37 Depression Screening Interpretation: Negative Thrive Assessment: Date of Thrive Assessment Date Thrive assessed 08/30/23 02/17/24 09:37 Const General: no acute distress and alert HENMT Ears: TM's normal bilaterally and EAC's normal Throat: Yes posterior oropharynx normal and Yes tonsils normal (no TP congestion) Neck Neck: Yes no lymphadenopathy and Yes supple Thyroid: Thyroid normal Resp Auscultation: clear to auscultation bilaterally, no rales and no wheezes Cardio Rate: regular rate Rhythm: regular rhythm Heart sounds: no murmurs GI Palpation (GI): Soft to palpation and nontender Auscultation: normal bowel sounds General: Yes no CVA tenderness Back/Spine/Pelvis Back: no CVA tenderness Cervical Spine: Cervical spine tenderness (mild) Thoracic/Lumbar Spine: thoracic spinal tenderness (mild) Skin Rashes: no rashes Extrem Other: (+) prominent varicose veins over both lower extremities General: Yes no clubbing, cyanosis or edema Office Procedures Flu Questionnaire Does the patient have a severe egg allergy?: No Does the patient have severe life threatening allergies?: No Does the patient have a fever or illness today?: No Has the patient ever had Guillain-Mazeppa Syndrome?: No Has the patient ever had any past reaction to a flu shot?: No Immunizations Fluarix Triv [id number] (PF) 45 mcg (15 mcg x 3)/0.5 mL IM syringe Performing Provider: Sascha Perkins MD [facility] Documented (not given) by: STACIE Merritt on 02/17/24 09:56 Reason Not Given: Received Previously Results Reviewed Results Reviewed: Laboratory Tests 08/24/23 02/15/24 02/15/24 08:10 10:25 10:28 WBC 6.0 Hgb 14.2 Hct 42.5 Plt Count 155 L Sodium 139 Potassium 4.0 Creatinine 0.88 Estimated GFR > 60 Fasting Glucose 106 H Hemoglobin A1c % 5.8 Calcium 9.5 D AST 30 ALT 31 Triglycerides 146 Cholesterol 150 LDL Cholesterol, Calc 76 HDL Cholesterol 45 Prostate Specific Ag 1.18 Vitamin B12 823 25-OH Vitamin D Total 27.8 L TSH 1.80 Ur Specific [place] 1.020 Urine Protein Trace Urine Glucose (UA) Negative Urine Blood Negative Urine Nitrite Positive H Ur Leukocyte Esterase Moderate (2+) H Coding Level of Care Code Est Pt Level 4 (49666) Complex EM visit Add On G2211 Diagnoses Coronary artery disease involving menominee coronary artery of menominee heart without angina pectoris I25.10 Coronary Disease-Associated Artery/Lesion type: menominee artery [place] vs. transplanted heart: menominee heart Associated angina: without angina Pure hypercholesterolemia E78.00 Benign essential hypertension I10 Impaired fasting glucose R73.01 GERD without esophagitis K21.9 Vitamin D deficiency E55.9 Cervical spondylosis with radiculopathy M47.22 Thoracic spondylosis M47.814 Varicose veins of both lower extremities with pain I83.813 Vitamin B12 deficiency E53.8 Meralgia paresthetica of left side G57.12 Benign prostatic hyperplasia, unspecified whether lower urinary tract symptoms present N40.0 Lower urinary tract symptom presence: unspecified whether lower urinary tract symptoms present Erectile dysfunction, unspecified erectile dysfunction type N52.9 Erectile dysfunction type: unspecified UTI (urinary tract infection), bacterial N39.0; A49.9 Obesity (BMI 30-39.9) E66.9 Assessment & Plan Assessment & Plan (1) Coronary artery disease: Comment: follows w/PV Cardio Code(s): I25.10 - Atherosclerotic heart disease of menominee coronary artery without angina pectoris Category: Medical Qualifiers: Coronary Disease-Associated Artery/Lesion type: menominee artery [place] vs. transplanted heart: menominee heart Associated angina: without angina Qualified Code(s): I25.10 - Atherosclerotic heart disease of menominee coronary artery without angina pectoris Plan: Continue Isosorbide Mononitrate ER 30 mg QD He had cardiac stress testing done about 3 years ago that came back negative Was recommended by cardiology to continue long-acting nitrates for maintenance therapy Follow up with cardiology as scheduled (2) Pure hypercholesterolemia: Code(s): E78.00 - Pure hypercholesterolemia, unspecified Category: Medical Plan: Results of his labs done a couple of days ago reviewed and discussed with patient Reinforced low cholesterol diet Continue Simvastatin 40 mg QD - Rx refilled Will recheck his labs and fasting lipids in 6 months for follow up (3) Benign essential hypertension: Code(s): I10 - Essential (primary) hypertension Category: Medical Plan: Reinforced low sodium diet - goal is systolic BP of at least 130 to 140 mm or less Continue Lisinopril 10 mg QD and Atenolol 25 mg QD (4) Impaired fasting glucose: Code(s): R73.01 - Impaired fasting glucose Category: Medical Plan: His HgbA1c has been steady at 5.8% on his labs done a couple of days ago; was previously at 5.9% a few months ago Reinforced low calorie diet/exercise as tolerated (5) GERD without esophagitis: Code(s): K21.9 - Gastro-esophageal reflux disease without esophagitis Category: Medical Plan: Dietary restrictions reinforced (6) Vitamin D deficiency: Code(s): E55.9 - Vitamin D deficiency, unspecified Category: Medical Plan: Slowly improving Continue Vitamin D3 2000 units daily (7) Cervical spondylosis with radiculopathy: Code(s): M47.22 - Other spondylosis with radiculopathy, cervical region Category: Medical Plan: Patient still has on and off symptoms in his right arm but states that these have not gotten any worse lately Cervical spine x-rays done last year (April 2022) revealed (+) mild degenerative disc disease at C4-C5 and moderate degenerative disc disease seen at C5-C6 and C6-C7. There is also (+) multi-level cervical spondylosis noted Have advised him that his riding a motorcycle often may also be contributing to these symptoms as he tends to notice these more often after he goes out for lengthy motorcycle rides - advised that it is likely that the constant vibration in his hands from the steering handles may be contributing to these symptoms May need to consider NCV & EMG if his symptoms persist or worsen (8) Thoracic spondylosis: Code(s): M47.814 - Spondylosis without myelopathy or radiculopathy, thoracic region Category: Medical Plan: He still has on and off back pain but states that his back symptoms have been mostly manageable lately Past thoracic spine x-rays have revealed (+) spondylosis Repeat thoracic spine x-rays done last year revealed (+) multi-level thoracolumbar spondylosis. The thoracic disc spaces are relatively well-maintained and there is also a mild to moderate thoracolumbar dextroscoliosis noted (9) Varicose veins of both lower extremities with pain: Code(s): I83.813 - Varicose veins of bilateral lower extremities with pain Category: Medical Plan: He was referred to vascular surgery previously but he states that he did not pursue the referral as his symptoms have subsided shortly after that visit States that he would like to put his on hold for now as he does not really want to have any surgery done at this time He is advised to call again for referral when his symptoms start to bother him again (10) Vitamin B12 deficiency: Code(s): E53.8 - Deficiency of other specified B group vitamins Category: Medical Plan: Continue OTC Vitamin B12 tablets 1000 mcg daily (11) Meralgia paresthetica of left side: Code(s): G57.12 - Meralgia paresthetica, left lower limb Category: Medical Plan: Symptoms stable - reminded again that losing weight and wearing loose clothings can help alleviate or mitigate these symptoms (12) Benign prostatic hyperplasia: Code(s): N40.0 - Benign prostatic hyperplasia without lower urinary tract symptoms Category: Medical Qualifiers: Lower urinary tract symptom presence: unspecified whether lower urinary tract symptoms present Qualified Code(s): N40.0 - Benign prostatic hyperplasia without lower urinary tract symptoms Plan: Patient felt that his symptoms have not really improved much with his minimally invasive prostate surgery done a few years ago, as he continues to wake up a couple of times a night to use the bathroom He was started on Tadalafil 10 mg QD (lower dose because he is on a long-acting nitrate) by Dr. Chavez and states that his symptoms have improved a lot with his Rx He also underwent laser enucleation of his prostate back in October 2023 with some symptomatic improvement Follow up with urology (Dr. Chavez) as scheduled (13) Erectile dysfunction: Code(s): N52.9 - Male erectile dysfunction, unspecified Category: Medical Qualifiers: Erectile dysfunction type: unspecified Qualified Code(s): N52.9 - Male erectile dysfunction, unspecified Plan: Continue Tadalafil 5 mg QD Follow up with urology as scheduled (14) UTI (urinary tract infection), bacterial: Code(s): N39.0 - Urinary tract infection, site not specified; A49.9 - Bacterial infection, unspecified Category: Medical Plan: His recent urinalysis grew (+) E. coli on culture, and is resistant to Cipro Will start him on Macrobid 100 mg BID x 10 days (15) Obesity (BMI 30-39.9): Code(s): E66.9 - Obesity, unspecified Category: Medical Plan: Reinforced diet/exercise as tolerated/lose weight Plan Follow up in 6 months Orders: Orders Influenza [id number] Immunization Today Z23 - Encounter for immunization Comprehensive [place]. Panel Fast 6 Months E78.00 - Pure hypercholesterolemia, unspecified UA CC w/rflx Micro + Cult 6 Months R30.0 - Dysuria Complete Blood Count Auto Diff 6 Months D64.9 - Anemia, unspecified Lipid Panel 6 Months E78.00 - Pure hypercholesterolemia, unspecified TSH reflex Free T4 6 Months E78.00 - Pure hypercholesterolemia, unspecified Vitamin D 25-OH Total 6 Months E55.9 - Vitamin D deficiency, unspecified Hemoglobin A1c 6 Months R73.01 - Impaired fasting glucose Medications: New nitrofurantoin monohyd/m-cryst 100 mg (Macrobid) must administer with a meal/food 100 mg PO Q12H 10 days 20 caps 0RF Refilled simvastatin 40 mg PO BEDTIME 90 days 90 tabs 1RF E78.00 - Pure hypercholesterolemia, unspecified
== END 2024-02-17 10:11 | disposition home or self-care (01) ==
PROVIDERS: PCP Internal Medicine; Visit Provider Internal Medicine
DX: I25.10 Atherosclerotic heart disease of native coronary artery without angina pectoris (principal); E78.00 Pure hypercholesterolemia, unspecified; E66.9 Obesity, unspecified; Z68.35 Body mass index [BMI] 35.0-35.9, adult; I10 Essential (primary) hypertension; R73.01 Impaired fasting glucose; K21.9 Gastro-esophageal reflux disease without esophagitis; M47.22 Other spondylosis with radiculopathy, cervical region; N52.9 Male erectile dysfunction, unspecified; M47.814 Spondylosis without myelopathy or radiculopathy, thoracic region; I83.813 Varicose veins of bilateral lower extremities with pain; E53.8 Deficiency of other specified B group vitamins

== ENCOUNTER → 2024-02-17 09:28 | Outpatient (BNVA) | payer MEDICARE, OTHER, SELFPAY | PROVIDERS: PCP Internal Medicine; Visit Provider Internal Medicine | DX: I25.10 Atherosclerotic heart disease of native coronary artery without angina pectoris (principal); E78.00 Pure hypercholesterolemia, unspecified; I10 Essential (primary) hypertension; R73.01 Impaired fasting glucose; K21.9 Gastro-esophageal reflux disease without esophagitis; E55.9 Vitamin D deficiency, unspecified; M47.22 Other spondylosis with radiculopathy, cervical region; M47.814 Spondylosis without myelopathy or radiculopathy, thoracic region; I83.813 Varicose veins of bilateral lower extremities with pain; E53.8 Deficiency of other specified B group vitamins; G57.12 Meralgia paresthetica, left lower limb; N40.0 Benign prostatic hyperplasia without lower urinary tract symptoms; N52.9 Male erectile dysfunction, unspecified | CPT/HCPCS: 99212 ==

== ENCOUNTER 2024-02-29 09:23 | Outpatient (REF) | payer MEDICARE, OTHER, SELFPAY ==
[2024-02-29 11:06] LABS: Appearance Urine Clear; Color Urine Yellow; Glucose Urine UA Negative (Negative); Leukocyte Esterase Urine Trace (Negative); Nitrite Urine Negative (Negative); Specific Gravity - Urine 1.025 (1.005-1.025); UMIC TRIGGER UA YES; Urine Blood Negative (Negative); Urine Ketones Negative (Negative); Urine Protein Negative (Neg-Trace)
[2024-02-29 11:10] LABS: Bacteria Urine None Seen (None Seen); Hyaline Casts Urine 0-2 /LPF (0-2); RBC Urine 0-2 /HPF (0-2); Squamous Epithelial Cell Urine 0-2 /HPF (0-2); WBC Urine 0-5 /HPF (0-5)
== END 2024-02-29 09:24 | disposition home or self-care (01) ==
LOC: HO.10HDLNP 09:23
PROVIDERS: Visit Provider Urology
DX: A49.9 Bacterial infection, unspecified (principal); N39.0 Urinary tract infection, site not specified
CPT/HCPCS: 81001; 87086

== ENCOUNTER 2024-08-04 10:11 | Outpatient (REF) | payer MEDICARE, OTHER, SELFPAY ==
[2024-08-04 11:27] LABS: Prostate Specific Antigen 0.99 ng/mL (<0.05-4.0)
== END 2024-08-04 10:12 | disposition home or self-care (01) ==
LOC: HO.LAB 10:11
PROVIDERS: PCP Internal Medicine; Visit Provider Urology
DX: N40.0 Benign prostatic hyperplasia without lower urinary tract symptoms (principal); Z12.5 Encounter for screening for malignant neoplasm of prostate
CPT/HCPCS: 36415; 84153

== ENCOUNTER 2024-08-09 09:30 | Outpatient (AMB) | payer MEDICARE, OTHER, SELFPAY ==
--- NOTE | 2024-08-09 09:31 | MHC.OFFVIS ---
Intake Visit Reasons: 6 month follow up/ PSA Intake Note: Pt presents to the office today for a 6 month follow up/PSA. PVR:0ml Allergies Sulfa (Sulfonamide Antibiotics) [SULFA (SULFONAMIDE ANTIBIOTICS)] Allergy (Unknown, Verified 08/09/24 09:32) RASH, hives HPI Comments Details: Benja is a pleasant male. He is a patient of Dr. Perkins. He seen for the following urologic conditions - lower urinary tract symptoms - erectile dysfunction Complicated UTI Urine culture Levaquin 7 days Six-month follow-up Discussed his car collection. Drives [address], [address] [place] Did notice that bladder control was improved with 5 mg daily tadalafil. Less urgency and less frequency Had come off medication recently has had noticed trace blood in his urine after his trip back from [place] Thinks this may have been secondary to dehydration Is aware of the interaction between tadalafil and isosorbide Takes these medications during the day Blood pressure stable Erectile dysfunction Previously use of MUSE Prescription provided Trial daily tadalafil Microscopic hematuria PFSH Medical History Cervical spondylosis with radiculopathy Coronary artery disease Obesity (BMI 30-39.9) Erectile dysfunction Meralgia paresthetica of left side Vitamin B12 deficiency Vitamin D deficiency Benign prostatic hyperplasia GERD without esophagitis Impaired fasting glucose Pure hypercholesterolemia Benign essential hypertension Surgical History History of prostate surgery (~04/2017) Family History Father Cardiovascular disease Mother Hypertension Social History Housing: House Are you a primary behavioral health care manager to a significant other at home: No Do you presently have visiting nurse or other home services: No Alcohol intake: current Alcohol intake frequency: a few times a week Alcohol type: wine Patient Tobacco Use Status: Current everyday Tobacco user Tobacco use type: Cigar Cigarettes Per Day: 1 e-Cigarette/Vaping Use: Never Used Second Hand Smoke Exposure: Yes service: No Current occupational status: employed Cognitive needs: No Hearing needs: No Vision needs: Yes (glasses) Office Procedures Post Void Residual Post Residual Void Post Void Residual (PVR): 0 [id number] Void Residual by ultrasound Results AMB Urinalysis, Automated UA Leukoctes 0 Hector/uL Last Edit by Angelic Kunz CMA on 08/09/24 09:40 UA Nitrite Negative Last Edit by Angelic Kunz, SHELIA on 08/09/24 09:40 UA Urobilinogen 0.2 mg/dL Last Edit by Angelic Kunz, SHELIA on 08/09/24 09:40 UA Protein 15 mg/dL Last Edit by Angelic Kunz, SHELIA on 08/09/24 09:40 UA pH 6.0 Last Edit by Angelic Kunz, ANIMAL ANATOMY TEACHER on 08/09/24 09:40 UA Blood 0 Esa/uL Last Edit by Angelic Kunz, ANIMAL ANATOMY TEACHER on 08/09/24 09:40 UA Specific [place] 1.025 Last Edit by Angelic Kunz, SHELIA on 08/09/24 09:40 UA Ketone Negative Last Edit by Angelic Kunz, SHELIA on 08/09/24 09:40 UA Bilirubin 1 mg/dL Last Edit by Angelic Kunz, SHELIA on 08/09/24 09:40 UA Glucose 0 mg/dL Last Edit by Angelic Kunz, SHELIA on 08/09/24 09:40 Assessment & Plan Assessment & Plan (1) Erectile dysfunction: Code(s): N52.9 - Male erectile dysfunction, unspecified Category: Medical Qualifiers: Erectile dysfunction type: unspecified Qualified Code(s): N52.9 - Male erectile dysfunction, unspecified (2) Bladder instability: Code(s): N32.89 - Other specified disorders of bladder Category: Medical Orders: Orders AMB Urinalysis Automated Today Z13.9 - Encounter for screening, unspecified AMB Post Void Residual by ultrasound Today N40.0 - Benign prostatic hyperplasia without lower urinary tract symptoms Medications: New oxybutynin chloride 5 mg PO Q8H PRN 30 tabs 1RF bladder spasms N32.89 - Other specified disorders of bladder, R33.9 - Retention of urine, unspecified, R39.15 - Urgency of urination Refilled tadalafil 5 mg PO DAILY 90 days 90 tabs 1RF sexual activity N52.9 - Male erectile dysfunction, unspecified Coding Diagnoses Erectile dysfunction, unspecified erectile dysfunction type N52.9 Erectile dysfunction type: unspecified Bladder instability N32.89 CPT Codes Post Residual Void - PVR CPT Code: 01722-[id number] Void Residual by ultrasound ([id number])
--- OUTSIDE RECORDS SUMMARY | 2024-08-09 10:17 | XMS_ITS | Clinical Summary ---
Author Organization [facility] Address [address] [address] Phone Care Team Providers Care Shipping Helper Name Role Phone Sascha Perkins MD Primary Care Provider Allergies Active Allergy Reactions Criticality Noted Date Comments Sulfa (Sulfonamide Antibiotics) 03/2020 Medications nitroglycerin (NITROSTAT) 0.[address] 1 Tablet under the tongue every 5 minutes as needed for Chest pain for up to 30 days. 01/01/20 23 Active cyanocobalamin (VITAMIN B-12) 1,000 mcg tablet Take 1 tablet (1,000 mcg total) by mouth 1 (one) time each day. Active simvastatin (ZOCOR) 40 mg tablet Take 1 tablet (40 mg total) by mouth 1 (one) time each day. 08/05/19 13 Active cholecalciferol (VITAMIN D-3) 50 mcg (2,000 unit) tablet Take 1 tablet (2,000 Units total) by mouth 1 (one) time each day. Active atenoloL (TENORMIN) 25 mg tablet Take 1 tablet (25 mg total) by mouth 1 (one) time each day. 90 tablet 07/14/19 25 Active lisinopriL (PRINIVIL,ZESTR IL) 10 mg tablet Take 1 tablet (10 mg total) by mouth 1 (one) time each day. 90 tablet 07/14/19 25 Active isosorbide mononitrate (IMDUR) 30 mg 24 hr tablet TAKE 1 TABLET BY MOUTH DAILY 90 tablet 2 07/19/19 25 Active isosorbide mononitrate (IMDUR) 30 mg 24 hr tablet Take 1 tablet (30 mg total) by mouth 1 (one) time each day. 07/19/19 24 025 Discontinued atenoloL (TENORMIN) 25 mg tablet Take 1 tablet (25 mg total) by mouth 1 (one) time each day. 07/12/19 24 025 Discontinued(Re order) lisinopriL (PRINIVIL,ZESTR IL) 10 mg tablet Take 1 tablet (10 mg total) by mouth 1 (one) time each day. 07/12/19 24 025 Discontinued(Re order) Active Problems Problem Noted Date Diagnosed Date Coronary artery disease invo lving [place] coronary artery of [place] heart without angina pectoris 01/31/2024 Assessment & Plan (01/31/2024 8:27 AM EST): Patient with no recurrent chest discomfort. Some evidence of previous ischemic coronary disease based on nuclear medicine stress testing. Prescribed modification in place. No recurrent symptoms Orders: Pulse oximetry, spot; Future ECG 12 lead Coronary artery disease 04/28/2020 Overview (01/02/2024): Last Assessment & Plan: Patient has history of coronary artery disease with history of stable angina. He continues to deny any exertiona anginal symptoms. He remains active and denies any chest pain or dyspnea. He continues on his medical therapies and denies any concerns today. He is on appropriate cardioprotective medical therapy with aspirin, beta-octavio, statin and isosorbide. I have reviewed with the patient the importance of a heart healthy lifestyle which includes eating a low-fat low-salt diet, getting regular exercise, maintaining a healthy weight, not smoking, and following up with routine medical care. Assessment & Plan (01/31/2024 12:40 PM EST): Patient stable for cardiovascular standpoint with class I angina remain physically active with prescribed modification in place Social History Tobacco Use Types Packs/Day Years Used Date Smoking Tobacco: Every Day Cigars Smokeless Tobacco: Never Tobacco Cessation:Ready to Q uit: Not Asked; Counseling Given: Not Answered Comments:1 cigar or less daily Alcohol Use Standard Drinks/Week Comments Yes 1 (1 standard drink = 0.6 oz pur e alcohol) wine 1-2 time a week Sex and Gender Information Value Date Recorded Sex Assigned at Not on file Legal Sex Male 3:53 AM EST Gender Identity Not on file Sexual Orientation Not on file Obstetrics History Last Filed Vital Signs Vital Sign Reading Time Taken Comments Blood Pressure 132/74 12/31/2022 10:43 AM EDT Si tting L Arm Pulse 55 01/31/2024 7:56 AM EST Temperature - - Respiratory Rate - - Oxygen Saturation 96% 01/31/2024 7:56 AM EST Inhaled Oxygen Concentration - - Weight 98.9 kg (218 lb) 01/31/2024 7:56 AM EST Height 170.2 cm (5' 7 ) 01/31/2024 7:56 AM EST Body Mass Index 34.14 01/31/2024 7:56 AM EST Plan of Treatment Upcoming Encounters Date Type Department Care Team (Late st Contact Info) Description 08/10/2024 8:00 AM EDT Office Visit Gastroenterology - [address] [place] [phone] Kip Duarte MD [address] Oral [address] [place] [id number] Health Maintenance Due Date Last Done Comments Pneumococcal Vaccine: 50+ Years (1 of 2 - PCV) 1968 Zoster Vaccines (1 of 2) 1999 Abdominal Aortic Aneurysm (AAA) Screen 03/06/2022 Cholesterol Screening (Lipid Panel) 03/06/2022 Colorectal Cancer Screening: Colonoscopy 03/06/2022 Depression Screening 03/06/2022 Falls Risk Assessment 03/06/2022 Hepatitis C Screening 03/06/2022 Medicare Annual Wellness Visit 03/06/2022 Social Influencers of Health Screening 03/06/2022 Hypertension/CHF/CAD Annual BMP Blood Test 03/07/2022 COVID-19 Vaccine ( season) 2023 RSV Immunization Adult Patients (1 - 1-dose 75+ series) 2024 Influenza Vaccine (Season Ended) 2024 12/23/2022, 02/26/2022, 01/14/2021, Additional history exists DTaP,Tdap,and Td Vaccines (2 - Td or Tdap) 09/07/2026 09/07/2016 HIB Vaccines Aged Out No longer eligi ble based on patient's age to complete this topic HPV Vaccines Aged Out No longer eligi ble based on patient's age to complete this topic Hepatitis A Vaccines Aged Out No long er eligible based on patient's age to complete this topic Hepatitis B Vaccines Aged Out No long er eligible based on patient's age to complete this topic IPV Vaccines Aged Out No longer eligi ble based on patient's age to complete this topic MMR Vaccines Aged Out No longer eligi ble based on patient's age to complete this topic Meningococcal ACWY Vaccine Aged Out N o longer eligible based on patient's age to complete this topic Meningococcal B Vaccine Aged Out No l onger eligible based on patient's age to complete this topic RSV Immunization Patients Under 20 months Aged Out No longer eligible based on patient's age to complete this topic Varicella Vaccines Aged Out No longer eligible based on patient's age to complete this topic Insurance MEDICARE [facility] Care Teams Shipping Helper Relationship Specialty Start Date End Date Sascha Perkins MD [address] [place] [address] Dr [address] VALERIA Coleman PCP - General 08/04/12
== END 2024-08-09 10:19 | disposition home or self-care (01) ==
LOC: HO.HUSH 09:30
PROVIDERS: PCP Internal Medicine; Visit Provider Urology
DX: Z13.9 Encounter for screening, unspecified (principal)

== ENCOUNTER → 2024-08-09 09:30 | Outpatient (BNVA) | payer MEDICARE, OTHER, SELFPAY | PROVIDERS: PCP Internal Medicine; Visit Provider Urology | DX: N52.9 Male erectile dysfunction, unspecified (principal); N32.89 Other specified disorders of bladder | CPT/HCPCS: 51798; 81003; 99212 ==

== ENCOUNTER 2024-08-28 08:13 | Outpatient (REF) | payer MEDICARE, OTHER, SELFPAY ==
--- OUTSIDE RECORDS SUMMARY | 2024-08-28 08:20 | XMS_ITS | Clinical Summary ---
Author Organization [facility] Address [address] [place] [address] Phone Care Team Providers Care Vehicle Sales Professional Name Role Phone Sascha Perkins MD Primary Care Provider Allergies Active Allergy Reactions Criticality Noted Date Comments Sulfa (Sulfonamide Antibiotics) 03/2020 Medications nitroglycerin (NITROSTAT) 0.[address] 1 Tablet under the tongue every 5 minutes as needed for Chest pain for up to 30 days. 12/31/2022 Active cyanocobalamin (VITAMIN B-12) 1,000 mcg tablet Take 1 tablet (1,000 mcg total) by mouth 1 (one) time each day. Active simvastatin (ZOCOR) 40 mg tablet Take 1 tablet (40 mg total) by mouth 1 (one) time each day. 08/04/2012 Active cholecalciferol (VITAMIN D-3) 50 mcg (2,000 unit) tablet Take 1 tablet (2,000 Units total) by mouth 1 (one) time each day. Active atenoloL (TENORMIN) 25 mg tablet Take 1 tablet (25 mg total) by mouth 1 (one) time each day. 90 tablet 07/13/2024 Active lisinopriL (PRINIVIL,ZESTRI L) 10 mg tablet Take 1 tablet (10 mg total) by mouth 1 (one) time each day. 90 tablet 07/13/2024 Active isosorbide mononitrate (IMDUR) 30 mg 24 hr tablet TAKE 1 TABLET BY MOUTH DAILY 90 tablet 2 07/18/2024 Active Active Problems Problem Noted Date Diagnosed Date Coronary artery disease invo lving [place] coronary artery of [place] heart without angina pectoris 01/31/2024 Assessment & [...] physically active with prescribed modification in place Encounters Date Type Department Care Team Description 08/10/2024 8:00 AM EDT Office Visit Gastroenterology - [address] [place] [address] [place] [phone] Kip Duarte MD Diarrhea, unspecified type (Primary Dx); Fatty liver from Last 3 Months Social History Tobacco Use Types Packs/Day Years [...] EST Inhaled Oxygen Concentration - - Weight 103 kg (228 lb) 08/10/2024 7:53 AM EDT Height 170.2 cm (5' 7 ) 08/10/2024 7:53 AM EDT Body Mass Index 35.71 08/10/2024 7:53 AM EDT Plan of Treatment Upcoming Encounters Date Type Department Care Team (Late st Contact Info) Description 08/29/2024 8:00 AM EDT Appointment [facility] Ultrasound [address] [place] [phone] Health Maintenance Due Date Last Done Comments Zoster Vaccines (1 of 2) 1999 Abdominal Aortic Aneurysm (AAA) Screen 03/06/2022 Cholesterol Screening (Lipid Panel) 03/06/2022 Colorectal Cancer Screening: Colonoscopy 03/06/2022 Depression Screening 03/06/2022 Falls Risk Assessment 03/06/2022 Hepatitis C Screening 03/06/2022 Medicare Annual Wellness Visit 03/06/2022 Social Influencers of Health Screening 03/06/2022 Hypertension/CHF/CAD Annual BMP Blood Test 03/07/2022 COVID-19 Vaccine ( - season) 2023 01/14/2021, 07/15/2020, 06/23/2020 RSV Immunization Adult Patients (1 - 1-dose 75+ series) 2024 Influenza Vaccine (Season Ended) 2024 12/23/2022, 02/26/2022, 01/14/2021, Additional history exists DTaP,Tdap,and Td Vaccines (4 - Td or Tdap) 09/08/2026 09/08/2016, 09/07/2016, 02/28/2015 Pneumococcal Vaccine: 50+ Years Completed 05/03/2016, 04/26/2015, 04/02/2015 HIB Vaccines Aged Out No longer eligi [...] age to complete this topic Insurance MEDICARE [facility] Care Teams Vehicle Sales Professional Relationship Specialty Start Date End Date Sascha Perkins MD [address] [place] [address] [address] VALERIA Coleman PCP - General 08/04/12
[2024-08-28 10:23] LABS: MANUAL DIFF FLAG NO
[2024-08-28 10:49] LABS: Basophils Percent Auto 0.8 % (0-2); Eosinophils Absolute Auto 0.1 X10*3/uL (0.0-0.4); Eosinophils Percent Auto 2.5 % (0-4); Hematocrit 43.4 % (42.0-52.0); Hemoglobin 14.1 g/dl (14.0-18.0); Imm Gran Abs Auto 0.02 X10*3/uL (0.00-0.03); Imm Gran Pct Auto 0.4 % (0.0-0.4); Lymphocytes Absolute Auto 0.8 X10*3/uL (1.2-4.9); Lymphocytes Percent Auto 17.3 % (20-40); Mean Corpuscular HGB Conc 32.5 g/dl (31.0-36.0); Mean Corpuscular Hemoglobin 30.1 pg (27.0-33.0); Mean Corpuscular Volume 92.5 fL (80.0-98.0); Mean Platelet Volume 11.9 fL (9.4-12.4); Monocytes Absolute Auto 0.4 X10*3/uL (0.1-1.2); Monocytes Percent Auto 8.5 % (2-11); Neutrophils Absolute Auto 3.4 x10*3/uL (2.0-8.3); Neutrophils Percent Auto 70.5 % (45-73); Platelet Count 133 X10*3/uL (160-400); Red Blood Count 4.69 X10*6/uL (4.60-5.80); Red Cell Distribution Width 13.4 % (11.0-16.0); White Blood Count 4.8 X10*3/uL (4.8-10.8)
[2024-08-28 10:56] LABS: Estimated Average Glucose 120 mg/dL; Hemoglobin A1c % 5.8 % (<6.0)
[2024-08-28 11:16] LABS: Appearance Urine Clear; Color Urine Yellow; Glucose Urine UA Negative (Negative); Leukocyte Esterase Urine Negative (Negative); Nitrite Urine Negative (Negative); PH 5.5 (5.0-9.0); Urine Blood Negative (Negative); Urine Ketones Negative (Negative); Urine Protein Negative (Neg-Trace)
[2024-08-28 11:27] LABS: Alanine Aminotransferase 25 U/L (0-40); Albumin Level 4.2 g/dL (3.5-5.0); Alkaline Phosphatase 51 U/L (39-117); Anion Gap 8 (12-20); Aspartate Amino Transferase 26 U/L (5-37); Bilirubin Total 0.6 mg/dL (0.0-1.0); Blood Urea Nitrogen 16 mg/dL (9-16); Calcium 9.2 mg/dL (8.4-10.2); Carbon Dioxide 32 mmol/L (22-29); Chloride 104 mmol/L (96-108); Cholesterol 145 mg/dL (<200); Estimated Glomerular Filt Rate > 60; Glucose Fasting 108 mg/dL (60-99); HDL Cholesterol 39 mg/dL (>40); LDL Cholesterol Calculated 83 mg/dL (<100); Potassium 4.3 mmol/L (3.3-5.1); Sodium 140 mmol/L (135-145); Total Protein 6.7 g/dL (6.5-8.0); Triglycerides 118 mg/dL (<150)
[2024-08-28 11:45] LABS: TSH reflex Free T4 1.78 uIU/mL (0.32-4.0); Vitamin D 25-OH Total 29.8 ng/mL (>30)
[2024-08-29 06:48] LABS: Immunoglobulin A 197 mg/dL (70-320)
[2024-08-29 20:23] LABS: Transglutaminase IgA <1.0 U/mL
== END 2024-08-28 08:14 | disposition home or self-care (01) ==
LOC: HO.10HDL 08:13
PROVIDERS: Referring Provider Internal Medicine Gastroenterology; Visit Provider Internal Medicine
DX: D64.9 Anemia, unspecified (principal); E78.00 Pure hypercholesterolemia, unspecified; E55.9 Vitamin D deficiency, unspecified; R73.01 Impaired fasting glucose; R30.0 Dysuria; R19.7 Diarrhea, unspecified
CPT/HCPCS: 36415; 80053; 80061; 81003; 82306; 82784; 83036; 84443; 85025; 86364

== ENCOUNTER 2024-09-13 15:28 | Outpatient (AMB) | payer MEDICARE, OTHER, SELFPAY ==
[2024-09-13 15:41] VITALS: BP 148/78; PULSE 66; RESP 18; TEMP 37.1; O2SAT 97; BMI 36.0
--- NOTE | 2024-09-13 15:41 | A.OFFPC_ITS ---
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 Accompanied by: Self / Same As Patient Allergies Sulfa (Sulfonamide Antibiotics) (SULFA (SULFONAMIDE ANTIBIOTICS)) Allergy (Unknown, Verified 09/13/24 15:57) RASH, hives Medication List - Last Reconciled 09/13/24 by ALPHONSO Daniel atenolol 25 mg PO DAILY blood pressure monitor (Blood Pressure Kit) As directed cholecalciferol (vitamin D3) 50 mcg PO DAILY isosorbide mononitrate ER 30 mg PO DAILY lisinopril 10 mg PO DAILY nitroglycerin 0.4 mg sublingual DIRECTED simvastatin 40 mg PO BEDTIME 90 days Tobacco use date assessed: 09/13/24 Fall risk assessment: No Falls in past year Last assessed Fall Risk: 09/13/24 Dental Screening Dental Screen Date: 09/13/24 Did you have a dental visit in the last 12 months?: Yes Did you have a dental problem in the last 6 months where you did not have access to dental care?: No Was dental information given to patient?: Patient has dentist HPI hyperlipidemia, HTN, IFG HPI Details The patient is a 74-year-old male presenting for a routine follow-up and management of chronic conditions. The patient has a history of hypertension, with recent home blood pressure readings generally lower than those recorded in the clinic, such as 134/65 mmHg and 125/64 mmHg. He monitors his blood pressure regularly using a machine at [facility] and at home, noting that the clinic readings may be elevated due to the timing of his medication, isosorbide, which may wear off by the afternoon. The patient reports a history of pre-diabetes, with a fasting glucose level slightly elevated and an A1c of 5.8%. He acknowledges that weight loss could potentially improve his glycemic control. The patient experiences symptoms consistent with irritable bowel syndrome, including intermittent diarrhea and abdominal gurgling, particularly after consuming heavier or fried foods. He denies any associated abdominal pain, nausea, or blood in the stool. An ultrasound of the liver revealed minor scarring, and the patient is awaiting further records from [facility]. The patient has a history of hyperlipidemia, with cholesterol levels being monitored regularly. [facility] Medical History Cervical spondylosis with radiculopathy Coronary artery disease Obesity (BMI 30-39.9) Erectile dysfunction Meralgia paresthetica of left side Vitamin B12 deficiency Vitamin D deficiency Benign prostatic hyperplasia GERD without esophagitis Impaired fasting glucose Pure hypercholesterolemia Benign essential hypertension Surgical History History of prostate surgery (~04/2017) Family History Father Cardiovascular disease Mother Hypertension Social History Housing: House Are you a primary resident care provider to a significant other at home: No Do you presently have visiting nurse or other home services: No Alcohol intake: current Alcohol intake frequency: a few times a week Alcohol type: wine Patient Tobacco Use Status: Current everyday Tobacco user (1-2 CIGARS DAILY) Tobacco use type: Cigar e-Cigarette/Vaping Use: Never Used Second Hand Smoke Exposure: Yes service: No Current occupational status: employed Cognitive needs: No Hearing needs: No Vision needs: Yes (glasses) Questionnaire PHQ-9 Over the last 2 weeks, how often have you been bothered by any of the following problems? 1. Little interest or pleasure in doing things: not at all 2. Feeling down, depressed, or hopeless: not at all 3. Trouble falling or staying asleep, or sleeping too much: not at all 4. Feeling tired or having little energy: not at all 5. Poor appetite or overeating: not at all 6. Feeling bad about yourself - or that you are a failure or have let yourself or your family down: not at all 7. Trouble concentrating on things, such as reading the newspaper or watching television: not at all 8. Moving or speaking so slowly that other people could have noticed. Or the opposite - being so fidgety or restless that you have been moving around a lot more than usual: not at all 9. Thoughts that you would be better off or of hurting yourself in some way: not at all Total score: 0 Depression Screening Interpretation: Negative Depression Screening Done: Yes 51422 - PHQ-9 Billing: Yes Source: Developed by Drs. Julio Wagoner, Eileen Vides, Grover Thorne and colleagues, with an educational zion from [employer] Thrive Questionnaire Date Thrive assessed: 09/13/24 I am a: Patient What is your living situation today?: I have a steady place to live Within the past 12 months, did the food you bought not last and you didn't have the money to get more?: Never true Within the past 12 months, did you worry whether your food would run out before you got money to buy more?: Never true Do you have trouble paying for medicines?: No Do you have trouble getting transportation to medical appointments?: No Do you have trouble paying your heating and electricity bill?: No Do you have trouble taking care of your child, family member or friend?: No Do you have trouble with day-to-day activities such as bathing, preparing meals, shopping, managing finances, etc.?: No Are you currently unemployed and looking for a job?: No Are you interested in more education?: No Please select the resources that you would like help with: None Currently or been in a relationship where the following occur: No concerns reported THRIVE Score: 0 AUDIT C Alcohol Use Questionnaire (AUDIT-C) 1. How often do you have a drink containing alcohol?: 2-3 times a week 2. How many drinks containing alcohol do you have on a typical day when you are drinking?: 1 or 2 3. How often do you have six or more drinks on one occasion?: Never Total Score: 3 Score Reviewed/Action Taken: No KODI-7 AMB Questionnaire KODI-7 Date KODI - 7 assessed: 09/13/24 Feeling nervous, anxious, or on edge: 0 = Not at all Not being able to stop or control worryin = Not at all Worrying too much about different things: 0 = Not at all Trouble relaxin = Not at all Being so restless that it is hard to sit still: 0 = Not at all Becoming easily annoyed or irritable: 0 = Not at all Feeling afraid as if something awful might happen: 0 = Not at all Total KODI-7 score (0-4 normal; 5-9 mild; 10-14 moderate; 15-21 severe): 0 Source: Developed by Drs. Julio Wagoner, Eileen Vides, Grover Thorne and colleagues, with an educational zion from [employer] KODI-7 Assessment Billing KODI-7 Assessment Tool: KODI-7 Assessment 00956 Review of Systems Const Denies headache(s) Eyes Denies loss of vision ENT Denies vertigo, Denies dizziness, Denies headache(s) and Denies sore throat Card Denies chest pain, Denies leg edema and Denies lightheadedness Resp Denies cough, Denies hemoptysis and Denies wheezing GI Denies abdominal pain, Denies melena, Denies constipation, Reports diarrhea (wit h abdominal gurgling with certain foods) and Denies vomiting Denies dysuria, Denies urinary frequency and Denies urinary urgency Musc Denies arthralgias, Denies joint swelling, Denies numbness and Denies tingling Neuro Denies Abnormal speech present, Denies behavioral changes, Denies vertigo, Denies dizziness, Denies headache(s), Denies loss of vision, Denies memory loss, Denies numbness and Denies tingling Psych Denies anxiety, Denies behavioral changes, Denies depression, Denies memory loss and Denies panic attacks Samir/Lymph Denies easy bleeding and Denies easy bruising Aller/Immun Denies wheezing Physical exam (Primary Care) Vital Signs: Last Vital Signs Temp 98.7 F 09/13/24 15:41 Pulse 66 09/13/24 15:41 Resp 18 09/13/24 15:41 BP 130/78 09/13/24 16:08 Pulse Ox 97 09/13/24 15:41 Oxygen Delivery Method Room Air 09/13/24 15:41 BMI result Body Mass Index 36.0 Tobacco/Smoking Status: Tobacco use Status Tobacco use date assessed 09/13/24 09/13/24 15:54 Patient Tobacco Use Status Current everyday Tobacco (1- 09/13/24 15:54 2 CIGARS DAILY) Tobacco use type Cigar 09/13/24 15:54 e-Cigarette/Vaping Use Never Used 09/13/24 15:54 PHQ-9: PHQ-9 Score PHQ-9: Total score 0 09/13/24 16:16 Depression Screening Interpretation: Negative Thrive Assessment: Date of Thrive Assessment Date Thrive assessed 09/13/24 09/13/24 15:54 Currently or been in a relationship where the following occur: No concerns reported Const General: healthy appearing, no acute distress, alert and awake Nutritional Appearance: well nourished Orientation/consciousness: oriented to person, oriented to place and oriented to time HENMT Ears: TM's normal bilaterally General nose exam: Normal nasal mucous membranes and turbinates present Eyes Conjunctivae: conjunctivae normal Sclerae: sclerae normal Pupils: Equal, round and reactive pupils present Neck Neck: Yes no lymphadenopathy and Yes no JVD Thyroid: Thyroid normal Carotids: no bruits Resp Effort & Inspection: normal respiratory effort and not tachypneic Auscultation: no crackles, no rales, no rhonchi and no wheezes Cardio Rate: regular rate Rhythm: regular rhythm Heart sounds: no murmurs and normal S1 and S2 GI Palpation (GI): Soft to palpation, nontender, no hepatomegaly and no splenomegaly Auscultation: normal bowel sounds Skin General skin exam: no rashes or lesions noted and dry skin Neuro General: oriented to person, oriented to place and oriented to time Cranial nerves: Yes Equal, round and reactive pupils present Speech: No Abnormal speech present Gait exam (Neuro): Normal gait present Motor exam (neuro): no tremor noted Extrem Right upper extremity: full ROM Left upper extremity: full ROM Right lower extremity: full ROM and lower leg (varicose veins); no edema Left lower extremity: full ROM and lower leg (varicose veins); no edema Psych Mental Status: mental status grossly normal Speech and movement: Normal speech and movement present Affect: normal affect Attitude: cooperative Thought process: Normal thought process present Results Reviewed Results Reviewed: Laboratory Tests 08/04/24 08/28/24 10:20 08:22 WBC 4.8 RBC 4.69 Hgb 14.1 Hct 43.4 MCV 92.5 MCH 30.1 MCHC 32.5 RDW 13.4 Plt Count 133 L MPV 11.9 Immature Gran % (Auto) 0.4 Neut % (Auto) 70.5 Sodium 140 Potassium 4.3 Chloride 104 Carbon Dioxide 32 H Anion Gap 8 L BUN 16 Creatinine 1.02 Estimated GFR > 60 Fasting Glucose 108 H Estimat Average Glucose 120 Hemoglobin A1c % 5.8 Calcium 9.2 Total Bilirubin 0.6 AST 26 ALT 25 Alkaline Phosphatase 51 Total Protein 6.7 Albumin 4.2 Triglycerides 118 Cholesterol 145 LDL Cholesterol, Calc 83 HDL Cholesterol 39 L Prostate Specific Ag 0.99 25-OH Vitamin D Total 29.8 L TSH 1.78 Urine Color Yellow Urine Appearance Clear Urine pH 5.5 Ur Specific [place] 1.020 Urine Protein Negative Urine Glucose (UA) Negative Urine Ketones Negative Urine Blood Negative Urine Nitrite Negative Ur Leukocyte Esterase Negative Coding Level of Care Code Est Pt Level 4 (70899) Diagnoses Benign essential hypertension I10 Coronary artery disease involving hughes coronary artery of hughes heart without angina pectoris I25.10 Associated angina: without angina Coronary Disease-Associated Artery/Lesion type: hughes artery [place] vs. transplanted heart: hughes heart Varicose veins of both lower extremities with pain I83.813 Pure hypercholesterolemia E78.00 Obesity (BMI 30-39.9) E66.9 Impaired fasting glucose R73.01 Vitamin D deficiency E55.9 Vitamin B12 deficiency E53.8 GERD without esophagitis K21.9 Benign prostatic hyperplasia, unspecified whether lower urinary tract symptoms present N40.0 Lower urinary tract symptom presence: unspecified whether lower urinary tract symptoms present Intermittent diarrhea R19.7 Additional Codes KODI-7 Assessment Billing - KODI-7 Assessment Tool: KODI-7 Assessment 10490 ([id number]) PHQ-9 - 30707 - PHQ-9 Billing: Yes ([id number]) Time Spent (min) 38 Assessment & Plan Assessment & Plan (1) Benign essential hypertension: Code(s): I10 - Essential (primary) hypertension Category: Medical Plan: Initial blood pressure was 148/78. Rechecked blood pressure was 130/78. Patient reports that he has been getting better numbers. Reinforced dash diet. Continue lisinopril 10 mg daily, atenolol 25 mg daily, isosorbide mononitrate ER 30 mg daily (2) Coronary artery disease: Comment: follows w/PV Cardio Code(s): I25.10 - Atherosclerotic heart disease of hughes coronary artery without angina pectoris Category: Medical Qualifiers: Associated angina: without angina Coronary Disease-Associated Artery/Lesion type: hughes artery [place] vs. transplanted heart: hughes heart Qualified Code(s): I25.10 - Atherosclerotic heart disease of hughes coronary artery without angina pectoris Plan: Denies any anginal symptoms. Stress test done in the past was negative. Continue isosorbide mononitrate ER 30 mg daily and nitroglycerin 0.4 mg sublingual as needed. Follow up with Cardiology as scheduled (3) Varicose veins of both lower extremities with pain: Code(s): I83.813 - Varicose veins of bilateral lower extremities with pain Category: Medical Plan: Patient reports that these are not bothersome at this time. No new intervention was added (4) Pure hypercholesterolemia: Code(s): E78.00 - Pure hypercholesterolemia, unspecified Category: Medical Plan: Triglycerides 118, total cholesterol 145, LDL 83, HDL 39. Noted slight increase in LDL from 76. Cautioned patient about LDL trending in the wrong di rection.Discussed lifestyle modifications including dietary changes and physical activity. Continue simvastatin 40 mg at bedtime. We will recheck lipid in six- month (5) Obesity (BMI 30-39.9): Code(s): E66.9 - Obesity, unspecified Category: Medical Plan: Encouraged to exercise for at least 30 minutes a day/5 days a week Healthy eating discussed. Encouraged to eat fruits/vegetables, protein- fish/baked chicken, and to avoid salty/fried foods, sweets, caffeine and carbohydrates. Encouraged to increase water intake 6-8 glasses a day (6) Impaired fasting glucose: Code(s): R73.01 - Impaired fasting glucose Category: Medical Plan: Fasting glucose 108 an A1c 5.8% Continue to being the pre diabetic range. We will recheck fasting glucose and A1c in six-month (7) Vitamin D deficiency: Code(s): E55.9 - Vitamin D deficiency, unspecified Category: Medical Plan: Slight improvement and vitamin-D levels to 29.8 Continue cholecalciferol 50 mcg daily. We will recheck levels in six-month (8) Vitamin B12 deficiency: Code(s): E53.8 - Deficiency of other specified B group vitamins Category: Medical Plan: Continue B12 1000 mcg otc daily (9) GERD without esophagitis: Code(s): K21.9 - Gastro-esophageal reflux disease without esophagitis Category: Medical Plan: Do not eat meals or drink carbonated beverages within 3 hr of bedtime Decrease the amount of fried, fatty, and spicy foods to decrease gastric acid production Raise the head of the bed using 4 to 6-inch blocks, especially if nocturnal symptoms are present Lose weight if indicated; avoid tight-fitting clothing, especially around the waist Avoid foods that relax the Lower esophageal sphincter (chocolate, peppermint, high-fat foods etc.,) (10) Benign prostatic hyperplasia: Code(s): N40.0 - Benign prostatic hyperplasia without lower urinary tract symptoms Category: Medical Qualifiers: Lower urinary tract symptom presence: unspecified whether lower urinary tract symptoms present Qualified Code(s): N40.0 - Benign prostatic hyperplasia without lower urinary tract symptoms Plan: Asymptomatic. PSA he had done last month was 0.99 ng/mL (11) Intermittent diarrhea: Code(s): R19.7 - Diarrhea, unspecified Category: Medical Plan: Reports intermittent diarrhea and abdominal gurgling with certain foods. Encouraged using the FODMAP diet to eliminate triggers. Encourage adequate hydration. Contact office if symptoms worsen or persist. Plan Follow up in six-month Orders: Orders Complete Blood Count Auto Diff 6 Months I10 - Essential (primary) hypertension, I25.10 - Atherosclerotic heart disease of hughes coronary artery without angina pectoris, I83.813 - Varicose veins of bilateral lower extremities with pain, E78.00 - Pure hypercholesterolemia, unspecified, R73.01 - Impaired fasting glucose, E66.9 - Obesity, unspecified, E55.9 - Vitamin D deficiency, unspecified, E53.8 - Deficiency of other specified B group vitamins, K21.9 - Gastro-esophageal reflux disease without esophagitis, N52.9 - Male erectile dysfunction, unspecified Lipid Panel 6 Months I10 - Essential (primary) hypertension, I25.10 - Atherosclerotic heart disease of hughes coronary artery without angina pectoris, I83.813 - Varicose veins of bilateral lower extremities with pain, E78.00 - Pure hypercholesterolemia, unspecified, R73.01 - Impaired fasting glucose, E66.9 - Obesity, unspecified, E55.9 - Vitamin D deficiency, unspecified, E53.8 - Deficiency of other specified B group vitamins, K21.9 - Gastro-esophageal reflux disease without esophagitis, N52.9 - Male erectile dysfunction, unspecified TSH reflex Free T4 6 Months I10 - Essential (primary) hypertension, I25.10 - Atherosclerotic heart disease of hughes coronary artery without angina pectoris, I83.813 - Varicose veins of bilateral lower extremities with pain, E78.00 - Pure hypercholesterolemia, unspecified, R73.01 - Impaired fasting glucose, E66.9 - Obesity, unspecified, E55.9 - Vitamin D deficiency, unspecified, E53.8 - Deficiency of other specified B group vitamins, K21.9 - Gastro-esophageal reflux disease without esophagitis, N52.9 - Male erectile dysfunction, unspecified UA CC w/rflx Micro + Cult 6 Months I10 - Essential (primary) hypertension, I25.10 - Atherosclerotic heart disease of hughes coronary artery without angina pectoris, I83.813 - Varicose veins of bilateral lower extremities with pain, E78.00 - Pure hypercholesterolemia, unspecified, R73.01 - Impaired fasting glucose, E66.9 - Obesity, unspecified, E55.9 - Vitamin D deficiency, unspecified, E53.8 - Deficiency of other specified B group vitamins, K21.9 - Gastro-esophageal reflux disease without esophagitis, N52.9 - Male erectile dysfunction, unspecified Vitamin D 25-OH Total 6 Months I10 - Essential (primary) hypertension, I25.10 - Atherosclerotic heart disease of hughes coronary artery without angina pectoris, I83.813 - Varicose veins of bilateral lower extremities with pain, E78.00 - Pure hypercholesterolemia, unspecified, R73.01 - Impaired fasting glucose, E66.9 - Obesity, unspecified, E55.9 - Vitamin D deficiency, unspecified, E53.8 - Deficiency of other specified B group vitamins, K21.9 - Gastro-esophageal reflux disease without esophagitis, N52.9 - Male erectile dysfunction, unspecified Comprehensive [place]. Panel Fast 6 Months I10 - Essential (primary) hypertension, I25.10 - Atherosclerotic heart disease of hughes coronary artery without angina pectoris, I83.813 - Varicose veins of bilateral lower extremities with pain, E78.00 - Pure hypercholesterolemia, unspecified, R73.01 - Impaired fasting glucose, E66.9 - Obesity, unspecified, E55.9 - Vitamin D deficiency, unspecified, E53.8 - Deficiency of other specified B group vitamins, K21.9 - Gastro-esophageal reflux disease without esophagitis, N52.9 - Male erectile dysfunction, unspecified Hemoglobin A1c 6 Months I10 - Essential (primary) hypertension, I25.10 - Atherosclerotic heart disease of hughes coronary artery without angina pectoris, I83.813 - Varicose veins of bilateral lower extremities with pain, E78.00 - Pure hypercholesterolemia, unspecified, R73.01 - Impaired fasting glucose, E66.9 - Obesity, unspecified, E55.9 - Vitamin D deficiency, unspecified, E53.8 - Deficiency of other specified B group vitamins, K21.9 - Gastro-esophageal reflux disease without esophagitis, N52.9 - Male erectile dysfunction, unspecified
[2024-09-13 16:08] VITALS: BP 130/78
--- OUTSIDE RECORDS SUMMARY | 2024-09-13 16:39 | XMS_ITS | Clinical Summary ---
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 Nitrate Operator Name Role Phone Sascha Perkins MD Primary [...] Diagnosed Date Coronary artery disease invo lving [place] coronary artery of [place] heart without angina pectoris 01/31/2024 Assessment & [...] Encounters Date Type Department Care Team Description 09/04/2024 Telephone Gastroenterology - [address] [phone] Brneda Bardales [place] 09/03/2024 Telephone Gastroenterology - 299 [place] [address] [phone] Osei Reagan MD 08/31/2024 Telephone Gastroenterology - [address] [phone] Lynette Bruno PA 08/29/2024 7:17 AM EDT - 08/29/2024 11:59 PM EDT Hospital Encounter [facility] Ultrasound [address] [place] [phone] Fatty liver Discharge Disposition: Home or Self Care 08/10/2024 8:00 AM EDT Office Visit Gastroenterology - 299 [place] 299 [facility] [address] [place] [phone] Kip Duarte MD Diarrhea, unspecified type (Primary [...] Care Team (Late st Contact Info) Description 11/13/2024 10:00 AM EDT Appointment [facility] Endoscopy [address] [place] [phone] Osei Reagan MD [address] [address] Health Maintenance Due Date Last Done Comments [...] on patient's age to complete this topic Procedures Procedure Name Priority Date/Time Associated Diagnosis Comments US ELASTOGRAPHY PARENCHYMA Routine 08/29/2024 7:32 AM EDT Fatty liver from Last 3 Months Results * US Elastography Parenchyma (08/29/2024 7:32 AM EDT) Anatomical Region Laterality Modality Body Ultrasound 08/29/2024 8:16 AM EDT Impressions 08/29/2024 8:22 AM EDT Vmean of 2.0 m/s. Hepatic elastography measurements: Vmean less than 1.3 m/s: High probability of being normal. Vmean 1.3-1.7 m/s: In the absence of other known clinical signs, rules out compensated advanced chronic liver disease. If there are clinical signs, may need further testing for confirmation. Vmean 1.7-2.1 m/s: suggestive of compensated advanced chronic liver disease but further testing needed for confirmation. Vmean 2.1-2.4 m/s: rules in compensated advanced chronic liver disease. Vmean greater than 2.4 m/s: suggestive of clinically significant portal hypertension. -------- FINAL REPORT -------- Dictated By: Ric Eduardo Dictated Date: 08/29/2024 08:16 ET Assigned Physician: Ric Eduardo Reviewed and Electronically Signed By: Ric Eduardo Signed Date: 08/29/2024 08:22 ET Workstation ID: [id number] Transcribed By: Self Edit Transcribed Date: 08/29/2024 08:16 ET Narrative 08/29/2024 8:22 AM EDT PROCEDURE: Liver elastography study. TECHNIQUE: Limited images of the liver with multiple elastography measurements. COMPARISON: 03/09/2021. FINDINGS: Vmean measurement of 2.0 m/s. Procedure Note Ric Eduardo MD - 08/29/2024 PROCEDURE: Liver elastography study. TECHNIQUE: Limited images of the liver with multiple elastographymeasurements. COMPARISON: 03/09/2021. FINDINGS: Vmean measurement of 2.0 m/s. IMPRESSION: Vmean of 2.0 m/s. Hepatic elastography measurements: Vmean less than 1.3 m/s: High probability of being normal. Vmean 1.3-1.7 m/s: In the absence of other known clinical signs, rules outcompensated advanced chronic liver disease. If there are clinical signs,may need further testing for confirmation. Vmean 1.7-2.1 m/s: suggestive of compensated advanced chronic liverdisease but further testing needed for confirmation. Vmean 2.1-2.4 m/s: rules in compensated advanced chronic liver disease. Vmean greater than 2.4 m/s: suggestive of clinically significant portalhypertension. -------- FINAL REPORT -------- Dictated By: Ric Eduardo Dictated Date: 08/29/2024 08:16 ET Assigned Physician: Ric Eduardo Reviewed and Electronically Signed By: Ric Eduardo Signed Date: 08/29/2024 08:22 ET Workstation ID: [id number] Transcribed By: Self Edit Transcribed Date: 08/29/2024 08:16 ET us Lynette SAN IMG US PROCEDURES Final Result from Last 3 Months Insurance MEDICARE [facility] Care Teams Ammonia Nitrate Operator Relationship Specialty Start Date End Date Sascha Perkins MD [address] [place] [address] [place] [address] [place] PCP - General 08/04/12
== END 2024-09-13 16:23 | disposition home or self-care (01) ==
LOC: HO.HMCH 15:28
PROVIDERS: PCP Internal Medicine
DX: I10 Essential (primary) hypertension (principal); I25.10 Atherosclerotic heart disease of native coronary artery without angina pectoris; I83.813 Varicose veins of bilateral lower extremities with pain; E78.00 Pure hypercholesterolemia, unspecified; E66.9 Obesity, unspecified; R73.01 Impaired fasting glucose; E55.9 Vitamin D deficiency, unspecified; E53.8 Deficiency of other specified B group vitamins; K21.9 Gastro-esophageal reflux disease without esophagitis; N40.0 Benign prostatic hyperplasia without lower urinary tract symptoms; R19.7 Diarrhea, unspecified

== ENCOUNTER → 2024-09-13 15:28 | Outpatient (BNVA) | payer MEDICARE, OTHER, SELFPAY | PROVIDERS: PCP Internal Medicine | DX: I10 Essential (primary) hypertension (principal); I25.10 Atherosclerotic heart disease of native coronary artery without angina pectoris; I83.813 Varicose veins of bilateral lower extremities with pain; E78.00 Pure hypercholesterolemia, unspecified; E66.9 Obesity, unspecified; Z68.36 Body mass index [BMI] 36.0-36.9, adult; E55.9 Vitamin D deficiency, unspecified; E53.8 Deficiency of other specified B group vitamins; R73.01 Impaired fasting glucose; N40.0 Benign prostatic hyperplasia without lower urinary tract symptoms; R19.7 Diarrhea, unspecified; Z71.3 Dietary counseling and surveillance | CPT/HCPCS: 96127; 99212 ==

== ENCOUNTER 2025-02-01 09:32 | Outpatient (REF) | payer MEDICARE, OTHER, SELFPAY ==
--- OUTSIDE RECORDS SUMMARY | 2025-01-28 13:30 | XMS_ITS | Encounter Summary ---
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 (Primary Dx); Primary hypertension Social History Tobacco Use Types Packs/Day Years Used Date Smoking Tobacco: Every Day Cigars Smokeless Tobacco: Never Tobacco Cessation:Ready to Q uit: Not Asked; Counseling Given: Not Answered Comments:1 cigar or less daily Alcohol Use Standard Drinks/Week Comments Yes 1 (1 standard drink = 0.6 oz pure alcohol) 4 glasses/or less of wine weekly Interpersonal Safety Answer Date Record ed Physical Abuse Unrecognized value 11/13/2024 Verbal Abuse Unrecognized value 11/13/2024 Sex and Gender Information Value Date Recorded Sex Assigned at Male 10/25/2024 9:29 AM EDT Legal Sex Male 3:53 AM EST Gender Identity Male 10/25/2024 9:29 AM EDT Sexual Orientation Straight 11/13/2024 9: 22 AM EDT documented as of this encounter Last Filed Vital Signs Vital Sign Reading Time Taken Comments Blood Pressure 160/80 01/28/2025 1:59 PM EST Pulse 61 01/28/2025 1:59 PM EST Temperature - - Respiratory Rate - - Oxygen Saturation 97% 01/28/2025 1:59 PM EST Inhaled Oxygen Concentration - - Weight 102 kg (224 lb 12.8 oz) 01/28/2025 1:59 P M EST Height 167.6 cm (5' 6 ) 01/28/2025 1:59 PM EST Body Mass Index 36.28 01/28/2025 1:59 PM EST documented in this encounter Ordered Prescriptions Prescription Sig Dispense Quantity Refills Last Filled Start Date End Date lisinopriL (PRINIVIL,ZESTRIL) 20 mg tabletIndications: 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 90 tablet 4 01/28/2025 04/23/2026 documented in this encounter Progress Notes * Irene Rasmussen MD - 01/28/2025 4:57 PM ESTAssociated Problem(s): Coronary artery disease History of positive stress test with possible ischemia. Patient is remained asymptomatic and is exercising regularly without the induction of chest pain or discomfort. Will continue present medical therapy and risk factor modification. 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 Basic metabolic panel; Future * Irene Rasmussen MD - 01/28/2025 1:30 PM ESTAssociated Problem(s): Primary hypertension Patient is hypertensive. We are doubling the dose of his lisinopril to 20 mg a day. He is given a lab slip to check potassium and basic metabolic profile in 1 week * Irene Rasmussen MD - 01/28/2025 1:30 PM EST Images from the original note were not included. [facility] CONSULT REQUESTED BY: Dr Perkins PCP: Sascha Perkins MD HPI: Benja Lutz is a Patient is a 74-year-old history of stable angina. Stress testing in the pastusing nuclear images showed evidence of inferolateral ischemic defect moderately noted at high workload. Patient was offered a diagnostic cath opportunity at that time but declined. He was exercisingon a regular basis at the gym and denied any chest pain or discomfort. His last noninvasive valuation for ischemia was in 2017 at 6 minutes and 41 seconds no ischemia on medical management. The patient still exercises regularly no chest pain pressure shortness of breath PND orthopnea no syncope presyncope or palpitations. He states that he walked through [place] this summer with no pain or discomfort. ACTIVE MEDICATIONS: Medications Taking[1] PAST MEDICAL HISTORY: Problem List[2] ALLERGIES: Allergies[3] FAMILY HISTORY: Family History[4] SOCIAL HISTORY: Social History Tobacco Use Smoking status: Every Day Types: Cigars Smokeless tobacco: Never Tobacco comments: 1 cigar or less daily Substance Use Topics Alcohol use: Yes Alcohol/week: 1.0 standard drink of alcohol Types: 1 Standard drinks or equivalent per week Comment: 4 glasses/or less of wine weekly REVIEW OF SYSTEMS: Review of Systems Constitutional: Negative. HENT: Negative. Eyes: Negative. Cardiovascular: Negative. Respiratory: Negative. Endocrine: Negative. Hematologic/Lymphatic: Negative. Skin: Negative. Musculoskeletal: Negative. Gastrointestinal: Negative. Genitourinary: Negative. Neurological: Negative. Psychiatric/Behavioral: Negative. Allergic/Immunologic: Negative. All other systems reviewed and are negative. PHYSICAL EXAM: Vitals: 01/28/25 1359 BP: (!) 160/80 Pulse: 61 SpO2: 97% Weight: 102 kg (224 lb 12.8 oz) Height: 1.676 m (66 ) Physical Exam Constitutional: Appearance: Normal appearance. HENT: Head: Normocephalic and atraumatic. Nose: Nose normal. Eyes: Extraocular Movements: Extraocular movements intact. Pupils: Pupils are equal, round, and reactive to light. Cardiovascular: Rate and Rhythm: Regular rhythm. Pulmonary: Breath sounds: Normal breath sounds. Abdominal: General: Abdomen is flat. Bowel sounds are normal. Palpations: Abdomen is soft. Musculoskeletal: General: Normal range of motion. Cervical back: Normal range of motion and neck supple. Skin: General: Skin is warm and dry. Neurological: General: No focal deficit present. Mental Status: He is alert. Psychiatric: Mood and Affect: Mood normal. EKG: Encounter Date: 01/28/25 ECG 12 lead Result Value Ventricular Rate ECG 58 Atrial Rate 58 P-R Interval 158 QRS Duration 90 Q-T Interval 434 QTc 426 P Wave [place] 35 T [place] 67 ECG Interpretation Sinus bradycardia Possible Left atrial enlargement Left ventricular hypertrophy Abnormal ECG When compared with ECG of 31-JAN-2024 08:06, No significant change was found *Note: Due to a large number of results and/or encounters for the requested time period, some results have not been displayed. A complete set of results can be found in Results Review. 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 Basic metabolic panel; Future Primary hypertension Patient is hypertensive. We are doubling the dose of his lisinopril to 20 mg a day. He is given a lab slip to check potassium and basic metabolic profile in 1 week Assessment/Plan The above note was prepared with the help of voice recognition software. Please excuse any grammatical or spelling errors that may have occurred The [facility] team will continue to co-manage this patient following the plan of care as established by my initial visit and as per AHA guidelines for ongoing management and surveillance of Coronary ArteryDisease and Hypertension This will include medication titration, initiation of appropriate medications and further titration, and diagnostic studies to manage this disease process. [1] Outpatient Medications Marked as Taking for the 01/28/25 encounter (Office Visit) with Irene Rasmussen MD Medication Sig Dispense Refill atenoloL (TENORMIN) 25 mg tablet TAKE 1 TABLET(25 MG) BY MOUTH 1 TIME EACH DAY 90 tablet 1 cholecalciferol (VITAMIN D-3) 50 mcg (2,000 unit) tablet Take 1 tablet (2,000 Units total) by mouth1 (one) time each day. cyanocobalamin (VITAMIN B-12) 1,000 mcg tablet Take 1 tablet (1,000 mcg total) by mouth 1 (one) time each day. isosorbide mononitrate (IMDUR) 30 mg 24 hr tablet TAKE 1 TABLET BY MOUTH DAILY 90 tablet 2 nitroglycerin (NITROSTAT) 0.[address] 1 Tablet under the tongue every 5 minutes as needed for Chest pain for up to 30 days. oxyBUTYnin (DITROPAN) 5 mg tablet TAKE 1 TABLET BY MOUTH EVERY 8 HOURS NEEDED FOR BLADDER SPASMS simvastatin (ZOCOR) 40 mg tablet Take 1 tablet (40 mg total) by mouth 1 (one) time each day. 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 documented in this encounter Results * ECG 12 lead (01/28/2025 2:05 PM EST) [facility] Signature Ventricular Rate ECG 58 BPM GEMUSE Atrial Rate 58 BPM GEMUSE P-R Interval 158 ms GEMUSE QRS Duration 90 ms GEMUSE Q-T Interval 434 ms GEMUSE QTc 426 ms GEMUSE P Wave [place] 35 degrees GEMUSE T [place] 67 degrees GEMUSE ECG Interpretation Sinus bradycardia Possible Left atrial enlargement Left ventricular hypertrophy Abnormal ECG When compared with ECG of 31-JAN-2024 08:06, No significant change was found Confirmed by Dulce RASMUSSEN, IRENE ([id number]) on 01/28/2025 4:43:38 PM GEMUSE 01/28/2025 2:05 PM EST 01/28/2025 4:43 PM EST us Irene Rasmussen MD ECG ORDERABLES Final Result GEMUSE documented in this encounter Visit Diagnoses Diagnosis 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 See instructions provided by the office Discontinued by another clinician 10/30/2024 01/28/2025 polyethylene glycol (Golytely) 236-22.74-6.74 -5.86 gram solution Take 4L by mouth once for one dose. May substitue any PEG. Starting at 2PM the day before your procedure drink 1 8oz glasses at your own pace until you complete half of the gallon. Finish 2nd half of the gallon at 8PM. Discontinued by another clinician 10/30/2024 01/28/2025 lisinopriL (PRINIVIL,ZESTRIL) 10 mg tablet TAKE 1 TABLET(10 MG) BY MOUTH 1 TIME EACH DAY 01/14/2025 01/28/2025 documented as of this encounter Care Teams Hr Advisor Relationship Specialty Start Date End Date Sascha Perkins MD [address] [place] [address] [address] VALERIA Coleman PCP - General 08/04/12 documented as of this encounter
[2025-02-01 10:33] LABS: MANUAL DIFF FLAG NO
[2025-02-01 10:48] LABS: Hematocrit 44.2 % (42.0-52.0); Hemoglobin 14.4 g/dl (14.0-18.0); Imm Gran Abs Auto 0.02 X10*3/uL (0.00-0.03); Imm Gran Pct Auto 0.4 % (0.0-0.4); Lymphocytes Absolute Auto 0.9 X10*3/uL (1.2-4.9); Mean Corpuscular HGB Conc 32.6 g/dl (31.0-36.0); Mean Corpuscular Hemoglobin 29.9 pg (27.0-33.0); Mean Corpuscular Volume 91.7 fL (80.0-98.0); NRBC Abs Auto 0.000 X10*3/uL (0.0-0.012); NRBC Pct Auto 0.0 /100WBC (0.0-0.2); Platelet Count 149 X10*3/uL (160-400); Red Blood Count 4.82 X10*6/uL (4.60-5.80); White Blood Count 5.4 X10*3/uL (4.8-10.8)
--- OUTSIDE RECORDS SUMMARY | 2025-02-01 10:56 | XMS_ITS | Clinical Summary ---
Author Organization [facility] Address [address] [place] [address] Phone Care Team Providers Care Senior Pharmacy Technician Name Role Phone Sascha Perkins MD Primary [...] (one) time each day. 08/05/19 13 Active cholecalcifero l (VITAMIN D-3) 50 mcg (2,000 unit) tablet Take 1 tablet (2,000 Units total) by mouth 1 (one) time each day. Active isosorbide mononitrate (IMDUR) 30 mg 24 hr tablet TAKE 1 TABLET BY MOUTH DAILY 90 tablet 2 07/19/19 25 Active oxyBUTYnin (DITROPAN) 5 mg tablet TAKE 1 TABLET BY MOUTH EVERY 8 HOURS NEEDED FOR BLADDER SPASMS 10/19/19 25 Active atenoloL (TENORMIN) 25 mg tablet TAKE 1 TABLET(25 MG) BY MOUTH 1 TIME EACH DAY 90 tablet 1 10/20/20 25 Active lisinopriL (PRINIVIL,ZEST RIL) 20 mg tabletIndicati ons:Coronary artery disease involving [place] coronary artery of [place] heart without angina pectoris Take 1 tablet (20 mg total) by mouth 1 (one) time each day. 90 tablet 4 01/29/20 25 2026 Active lisinopriL (PRINIVIL,ZEST RIL) 10 mg tablet Take 1 tablet (10 mg total) by mouth 1 (one) time each day. 90 tablet 10/24/19 25 2024 Discontinued atenoloL (TENORMIN) 25 mg tablet Take 1 tablet (25 mg total) by mouth 1 (one) time each day. 90 tablet 10/24/19 25 2024 Discontinued bisacodyL (DULCOLAX) 5 mg EC tablet Take 2 tablets by mouth right before beginning bowel prep. See instructions provided by the office 2 tablet 10/31/19 25 2024 Discontinued(D iscontinued by another clinician) polyethylene glycol (Golytely) 236-22.74-6.74 -5.86 gram solution Take 4L by mouth once for one dose. May substitue any PEG. Starting at 2PM the day before your procedure drink 1 8oz glasses at your own pace until you complete half of the gallon. Finish 2nd half of the gallon at 8PM. 4000 mL 10/31/19 25 2024 Discontinued(D iscontinued by another clinician) lisinopriL (PRINIVIL,ZEST RIL) 10 mg tablet TAKE 1 TABLET(10 MG) BY MOUTH 1 TIME EACH DAY 90 tablet 1 01/15/20 25 2024 Discontinued Active Problems Problem Noted Date Diagnosed Date Primary hypertension 01/28/2025 Assessment & Plan (01/28/2025 4:58 PM EST): Patient is hypertensive. We are doubling the dose of his lisinopril to 20 mg a day. He is given a lab slip to check potassium and basic metabolic profile in 1 week Coronary artery disease invo lving [place] coronary artery of [place] heart without angina pectoris 01/31/2024 Assessment & Plan (01/28/2025 2:41 PM EST): Orders: ECG 12 lead lisinopriL (PRINIVIL,ZESTRIL) 20 mg tablet; Take 1 tablet (20 mg total) by mouth 1 (one) time each day. Basic metabolic panel; Future Assessment & Plan (01/31/2024 8:27 AM EST): [...] with routine medical care. Assessment & Plan (01/28/2025 4:57 PM EST): History of positive stress test with possible ischemia. Patient is remained asymptomatic and is exercising regularly without the induction of chest pain or discomfort. Will continue present medical therapy and risk factor modification. Assessment & Plan (01/31/2024 12:40 PM EST): Patient stable for cardiovascular standpoint with class I angina remain physically active with prescribed modification in place Encounters Date Type Department Care Team Description 01/28/2025 1:30 PM EST Office Visit [facility] [address] [place] [phone] Irene Rasmussen MD Coronary artery disease involving [place] coronary artery of [place] heart without angina pectoris (Primary Dx); Primary hypertension 11/13/2024 10:24 AM EDT Anesthesia Event [facility] [address] [place] [id number] Sinan Cali MD 11/13/2024 9:24 AM EDT - 11/13/2024 11:59 PM EDT Hospital Encounter [facility] [address] [place] [address] Osei Reagan MD Dasilva, John E, MD Swanson, Mona, CRNA Hx of colonic polyps Discharge Disposition: Home or Self Care from Last 3 Months Surgical History Surgery Date Site/Laterality Comments TONSILLECTOMY Medical History Medical History Date Comments Hypertension Hyperlipidemia GERD (gastroesophageal reflux disease) Anginal pain (CMS/HCC V24) CAD (coronary artery disease) Social History Tobacco Use Types Packs/Day Years [...] Orientation Straight 11/13/2024 9: 22 AM EDT Obstetrics History Last Filed Vital Signs Vital Sign Reading Time Taken Comments Blood Pressure 160/80 01/28/2025 1:59 PM EST Pulse 61 01/28/2025 1:59 PM EST Temperature 36.4 C (97.6 F) 11/13/2024 9:42 AM EDT Respiratory Rate 18 11/13/2024 11:01 AM EDT Oxygen Saturation 97% 01/28/2025 1:59 PM EST Inhaled Oxygen Concentration - - Weight 102 kg (224 lb 12.8 oz) 01/28/2025 1:59 P M EST Height 167.6 cm (5' 6 ) 01/28/2025 1:59 PM EST Body Mass Index 36.28 01/28/2025 1:59 PM EST Plan of Treatment Health Maintenance Due Date Last Done Comments Zoster Vaccines (1 of 2) 1999 Abdominal Aortic Aneurysm (AAA) Screen 03/06/2022 Cholesterol Screening (Lipid Panel) 03/06/2022 Hepatitis C Screening 03/06/2022 Medicare Annual Wellness Visit 03/06/2022 Social Influencers of Health Screening 03/06/2022 Hypertension/CHF/CAD Annual BMP Blood Test 03/07/2022 Depression Screening 03/28/2024 RSV Immunization Adult Patients (1 - 1-dose 75+ series) 2024 COVID-19 Vaccine ( - season) 2024 01/14/2021, 07/15/2020, 06/23/2020 Falls Risk Assessment 11/13/2025 11/13/2024 DTaP,Tdap,and Td Vaccines (4 - Td or Tdap) 09/08/2026 09/08/2016, 09/07/2016, 02/28/2015 Colorectal Cancer Screening: Colonoscopy 11/14/2027 11/13/2024 Pneumococcal Vaccine: 50+ Years Completed 05/03/2016, 04/26/2015, 04/02/2015 Influenza Vaccine Completed 01/08/2025, , 02/26/2022, Additional history exists HIB Vaccines Aged Out No longer eligi [...] 2:05 PM EST Coronary artery disease involving [place] coronary artery of [place] heart without angina pectoris COLONOSCOPY Routine 11/13/2024 10:41 AM EDT Hx of colonic polyps TISSUE EXAM Routine 11/13/2024 10:34 AM EDT Hx of colonic polyps from Last 3 Months Results * ECG 12 lead (01/28/2025 2:05 PM EST) Ventricular Rate ECG 58 BPM GEMUSE Atrial Rate 58 BPM GEMUSE P-R Interval 158 ms GEMUSE QRS Duration 90 ms GEMUSE Q-T Interval 434 ms GEMUSE QTc 426 ms GEMUSE P Wave [place] 35 degrees GEMUSE T [place] 67 degrees GEMUSE ECG Interpretation Sinus bradycardia Possible Left atrial enlargement Left ventricular hypertrophy Abnormal ECG When compared with ECG of 31-JAN-2024 08:06, No significant change was found Confirmed by Dulce RASMUSSEN, IRENE ([id number]) on 01/28/2025 4:43:38 PM GEMUSE 01/28/2025 2:05 PM EST 01/28/2025 4:43 PM EST us Irene Rasmussen MD ECG ORDERABLES Final Result GEMUSE * COLONOSCOPY Anesthesia - MAC; [facility] ENDOSCOPY (11/13/2024 10:41 AM EDT) Anatomical Region Laterality Modality Endoscopy 11/13/2024 10:1 2 AM EDT Impressions 11/13/2024 10:40 AM EDT - One 5 mm polyp in the distal ascending colon, removed with a cold snare. Resected and retrieved. - Diverticulosis in the left colon. - Non-bleeding internal hemorrhoids. - The examination was otherwise normal on direct and retroflexion views. Recommendation: - Discharge patient to home. - High fiber diet. - Continue present medications. - Await pathology results. - Repeat colonoscopy for surveillance based on pathology results. - Return to GI office PRN. Narrative 11/13/2024 10:[address] [facility] GI Patient Name: Swati Lutz Procedure Date: 11/13/2024 10:12 AM Date of : 1950 Age: 74 Room: ROOM 15 Gender: Male Note Status: Finalized Attending MD: Osei Reagan MD, Procedure Date No Time: 11/13/2024 Procedure: Colonoscopy Indications: High risk colon cancer surveillance: Personal history of colonic polyps Providers: Osei Reagan MD Referring MD: Oesi Reagan MD Medicines: Monitored Anesthesia Care Complications: No immediate complications. Estimated Blood Loss: Estimated blood loss: none. Procedure: Pre-Anesthesia Assessment: - ASA Grade Assessment: III - A patient with severe systemic disease. - After reviewing the risks and benefits, the patient was deemed in satisfactory condition to undergo the procedure. After I obtained informed consent, the scope was passed under direct vision. Throughout the procedure, the patient's blood pressure, pulse, and oxygen saturations were monitored continuously.The Olympus Colonoscope was introduced through the anus and advanced to the cecum, identified by appendiceal orifice and ileocecal valve. The colonoscopy was performed without difficulty. The patient tolerated the procedure well. The quality of the bowel preparation was good. Findings: A 5 mm polyp was found in the distal ascending colon. The polyp was sessile. The polyp was removed with a cold snare. Resection and retrieval were complete. Estimated blood loss was minimal. Multiple small and large-mouthed diverticula were found in the left colon. Non-bleeding internal hemorrhoids were found during retroflexion. The hemorrhoids were small. The exam was otherwise without abnormality on direct and retroflexion views. Procedure Code(s): --- Professional --- 52778, Colonoscopy, flexible; with removal of tumor(s), polyp(s), or other lesion(s) by snare technique Diagnosis Code(s): --- Professional --- Z86.010, Personal history of colonic polyps D12.2, Benign neoplasm of ascending colon CPT copyright 2020 [employer]. All rights reserved. The codes documented in this report are preliminary and upon natural gas plant supervisor review may be revised to meet current compliance requirements. Osei Reagan MD 11/13/2024 10:40:30 AM This report has been signed electronically.Osei Reagan MD Number of Addenda: 0 Note Initiated On: 11/13/2024 10:12 AM Scope In: Scope Out: Endoscopy Department at [facility] - [address] [place] [id number] Procedure Note Osei Reagan MD - 11/13/2024 [facility] Patient Name: Swati Lutz Procedure Date: 11/13/2024 10:12 AM Date of : 1950 Age: 74 Room: ROOM 15 Gender: Male Note Status: Finalized Attending MD: Osei Reagan MD, Procedure Date No Time: 11/13/2024 Procedure: Colonoscopy Indications: High risk colon cancer surveillance: Personalhistory of colonic polyps Providers: Osei Reagan MD Referring MD: Osei Reagan MD Medicines: Monitored Anesthesia Care Complications: No immediate complications. Estimated Blood Loss: Estimated blood loss: none. Procedure: Pre-Anesthesia Assessment: - ASA Grade Assessment: III - A patient with severe systemic disease. - After reviewing the risks and benefits, thepatient was deemed in satisfactory condition to undergo the procedure. After I obtained informed consent, the scope was passed under direct vision. Throughout theprocedure, the patient's blood pressure, pulse, and oxygen saturations were monitored continuously.The Olympus Colonoscope was introduced through the anus and advanced to the cecum, identified by appendiceal orifice and ileocecal valve. The colonoscopy was performed without difficulty. The patient tolerated the procedure well. The quality of the bowel preparation was good. Findings: A 5 mm polyp was found in the distal ascendingcolon. The polyp was sessile. The polyp was removed with a cold snare. Resection and retrieval were complete. Estimated blood loss was minimal. Multiple small and large-mouthed diverticula were found in the left colon. Non-bleeding internal hemorrhoids were found during retroflexion. The hemorrhoids were small. The exam was otherwise without abnormality ondirect and retroflexion views. Procedure Code(s): --- Professional --- 90753, Colonoscopy, flexible; with removal of tumor(s), polyp(s), or other lesion(s) by snare technique Diagnosis Code(s): --- Professional --- Z86.010, Personal history of colonic polyps D12.2, Benign neoplasm of ascending colon CPT copyright 2020 [employer]. All rights reserved. The codes documented in this report are preliminary and upon natural gas plant supervisor reviewmay be revised to meet current compliance requirements. Osei Reagan MD 11/13/2024 10:40:30 AM This report has been signed electronically.Osei eRagan MD Number of Addenda: 0 Note Initiated On: 11/13/2024 10:12 AM Scope In: Scope Out: Endoscopy Department at [facility] - [address] [place] [id number] IMPRESSION: - One 5 mm polyp in the distal ascending colon, removed with a cold snare. Resected andretrieved. - Diverticulosis in the left colon. - Non-bleeding internal hemorrhoids. - The examination was otherwise normal on directand retroflexion views. Recommendation: - Discharge patient to home. - High fiber diet. - Continue present medications. - Await pathology results. - Repeat colonoscopy for surveillance based on pathology results. - Return to GI office PRN. us Osei Reagan MD GI~PROCEDURE ORDERABLES Final Result * Tissue exam (11/13/2024 10:34 AM EDT) Final Diagnosis Polyp, ascending colon, polypectomy: - Tubular adenoma. 11/14/2024 9:04 AM EDT [facility] Gross Description A. Large Intestine, Right/Ascend ing Colon, polyp x1: Labeled ascend colon, polyp x 1 . Received in formalin is a 0.3 cm irregular montalvo mucosal tissue fragment which is wrapped in paper and submitted in toto in one cassette, one piece, multiple levels on one slide. AAKASH 11/14/2024 9:04 AM EDT [facility] Disclaimer Unless otherwise specified, all tissue is 10% NB formalin fixed and paraffin embedded. 11/14/2024 9:04 AM EDT [facility] Tissue Ascending colon structure / Unknown 11/13/2024 10:34 AM EDT 11/13/2024 11:45 AM EDT us Osei Reagan MD LAB PATHOLOGY ORDERABLES Gypsy haynes Result JOSE C GOMES [place] ([facility]) [facility] [address] [place] [address], [place] [phone] from Last 3 Months Insurance MEDICARE [facility] [address] [place] [phone] Care Teams Senior Pharmacy Technician Relationship Specialty Start Date End Date Sascha Perkins MD [address] VALERIA Coleman PCP - General 08/04/12
--- OUTSIDE RECORDS SUMMARY | 2025-02-01 10:57 | XMS_ITS | Patient Health Record ---
[facility] Organization [facility] Address [address] [place] [phone] Support Name Relationship Address Phone SWATI DING Guarantor Unknown [phone] Reason For Referral No Information Plan Of Treatment No Information
[2025-02-01 11:00] LABS: Appearance Urine Clear; Glucose Urine UA Negative (Negative); PH 5.5 (5.0-9.0); Specific Gravity - Urine 1.025 (1.005-1.025)
[2025-02-01 11:05] LABS: Alanine Aminotransferase 30 U/L (0-40); Albumin Level 4.5 g/dL (3.5-5.0); Alkaline Phosphatase 51 U/L (39-117); Anion Gap 11 (12-20); Aspartate Amino Transferase 28 U/L (5-37); Blood Urea Nitrogen 25 mg/dL (9-16); Calcium 9.1 mg/dL (8.4-10.2); Carbon Dioxide 30 mmol/L (22-29); Chloride 103 mmol/L (96-108); Cholesterol 145 mg/dL (<200); Estimated Glomerular Filt Rate > 60; HDL Cholesterol 43 mg/dL (>40); Potassium 4.6 mmol/L (3.3-5.1); Sodium 139 mmol/L (135-145); Total Protein 7.0 g/dL (6.5-8.0); Triglycerides 104 mg/dL (<150)
== END 2025-02-01 09:33 | disposition home or self-care (01) ==
LOC: HO.10HDL 09:32
PROVIDERS: Referring Provider Internal Medicine Cardiovascular Disease
DX: I10 Essential (primary) hypertension (principal); I25.10 Atherosclerotic heart disease of native coronary artery without angina pectoris; I83.813 Varicose veins of bilateral lower extremities with pain; E78.00 Pure hypercholesterolemia, unspecified; R73.01 Impaired fasting glucose; E55.9 Vitamin D deficiency, unspecified; E53.8 Deficiency of other specified B group vitamins; K21.9 Gastro-esophageal reflux disease without esophagitis; N52.9 Male erectile dysfunction, unspecified; E66.9 Obesity, unspecified
CPT/HCPCS: 36415; 80053; 80061; 81003; 82306; 83036; 84443; 85025

== ENCOUNTER 2025-02-05 09:27 | Outpatient (AMB) | payer MEDICARE, OTHER, SELFPAY ==
[2025-02-05 09:30] VITALS: BP 116/84; PULSE 65; O2SAT 97; BMI 35.9
--- NOTE | 2025-02-05 09:30 | MHC.PC.OV ---
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 Manufacturing Required: No Accompanied by: Self / Same As Patient Allergies Sulfa (Sulfonamide Antibiotics) (SULFA (SULFONAMIDE ANTIBIOTICS)) Allergy (Unknown, Verified 02/05/25 09:49) RASH, hives Medication List - Last Reconciled 02/05/25 by Sascha Perkins MD atenolol 25 mg PO DAILY blood pressure monitor (Blood Pressure Kit) As directed cholecalciferol (vitamin D3) 50 mcg PO DAILY isosorbide mononitrate ER 30 mg PO DAILY lisinopril 20 mg PO DAILY nitroglycerin 0.4 mg sublingual DIRECTED oxybutynin chloride ER 10 mg PO DAILY PRN simvastatin 40 mg PO BEDTIME 90 days Tobacco use date assessed: 02/05/25 Fall risk assessment: No Falls in past year Last assessed Fall Risk: 02/05/25 Dental Screening Dental Screen Date: 02/05/25 Did you have a dental visit in the last 12 months?: Yes Did you have a dental problem in the last 6 months where you did not have access to dental care?: No Was dental information given to patient?: Patient has dentist HPI htn/hld/ifg HPI Details Patient comes in today for his follow up visit States that he feels okay He denies any headaches or dizziness Denies any chest pains, no SOB No nausea/vomiting, no abdominal pain No change in bowel habits noted Adds that he's had an itchy rash on his forearms, especially on his left forearm, for a few months now and he admits to scratching them a lot to relieve his itching He had his follow up labs done a few days ago - to discuss his results [facility] Medical History Cervical spondylosis with radiculopathy Coronary artery disease Obesity (BMI 30-39.9) Erectile dysfunction Meralgia paresthetica of left side Vitamin B12 deficiency Vitamin D deficiency Benign prostatic hyperplasia GERD without esophagitis Impaired fasting glucose Pure hypercholesterolemia Benign essential hypertension Surgical History History of prostate surgery (~04/2017) Family History Father Cardiovascular disease Mother Hypertension Social History Housing: House Are you a primary nurse care manager to a significant other at home: No Do you presently have visiting nurse or other home services: No Alcohol intake: current Alcohol intake frequency: a few times a week Alcohol type: wine Patient Tobacco Use Status: Current everyday Tobacco user (1-2 CIGARS DAILY) Tobacco use type: Cigar e-Cigarette/Vaping Use: Never Used Second Hand Smoke Exposure: Yes service: No Current occupational status: employed Cognitive needs: No Hearing needs: No Vision needs: Yes (glasses) Questionnaire PHQ-9 Over the last 2 weeks, how often have you been bothered by any of the following problems? 1. Little interest or pleasure in doing things: not at all 2. Feeling down, depressed, or hopeless: not at all 3. Trouble falling or staying asleep, or sleeping too much: not at all 4. Feeling tired or having little energy: not at all 5. Poor appetite or overeating: not at all 6. Feeling bad about yourself - or that you are a failure or have let yourself or your family down: not at all 7. Trouble concentrating on things, such as reading the newspaper or watching television: not at all 8. Moving or speaking so slowly that other people could have noticed. Or the opposite - being so fidgety or restless that you have been moving around a lot more than usual: not at all 9. Thoughts that you would be better off or of hurting yourself in some way: not at all Total score: 0 Depression Screening Interpretation: Negative Depression Screening Done: Yes 91622 - PHQ-9 Billing: Yes Source: Developed by Drs. Julio Wagoner, Eileen Vides, Grover Thorne and colleagues, with an educational zion from [employer]. Thrive Questionnaire Date Thrive assessed: 02/05/25 I am a: Patient What is your living situation today?: I have a steady place to live Within the past 12 months, did the food you bought not last and you didn't have the money to get more?: Never true Within the past 12 months, did you worry whether your food would run out before you got money to buy more?: Never true Do you have trouble paying for medicines?: No Do you have trouble getting transportation to medical appointments?: No Do you have trouble paying your heating and electricity bill?: No Do you have trouble taking care of your child, family member or friend?: No Do you have trouble with day-to-day activities such as bathing, preparing meals, shopping, managing finances, etc.?: No Are you currently unemployed and looking for a job?: No Are you interested in more education?: No Please select the resources that you would like help with: None Currently or been in a relationship where the following occur: No concerns reported THRIVE Score: 0 AUDIT C Alcohol Use Questionnaire (AUDIT-C) 1. How often do you have a drink containing alcohol?: 2-3 times a week 2. How many drinks containing alcohol do you have on a typical day when you are drinking?: 1 or 2 3. How often do you have six or more drinks on one occasion?: Never Total Score: 3 Score Reviewed/Action Taken: Yes KODI-7 AMB Questionnaire KODI-7 Date KODI - 7 assessed: 02/05/25 Feeling nervous, anxious, or on edge: 0 = Not at all Not being able to stop or control worryin = Not at all Worrying too much about different things: 0 = Not at all Trouble relaxin = Not at all Being so restless that it is hard to sit still: 0 = Not at all Becoming easily annoyed or irritable: 0 = Not at all Feeling afraid as if something awful might happen: 0 = Not at all Total KODI-7 score (0-4 normal; 5-9 mild; 10-14 moderate; 15-21 severe): 0 Source: Developed by Drs. Julio Wagoner, Eileen Vides, Grover Thorne and colleagues, with an educational zion from [employer]. Review of Systems Const Denies chills, Denies fatigue, Denies fever(s) and Denies headache(s) ENT Denies dysphagia, Denies dizziness, Denies otalgia, Denies headache(s), Reports neck pain (on and off), Denies odynophagia and Denies sore throat Card Denies chest pain, Denies palpitations and Denies dyspnea Resp Denies chest congestion, Denies cough and Denies dyspnea GI Denies abdominal pain, Denies constipation, Denies dysphagia, Denies heartburn, Denies diarrhea, Denies nausea, Denies odynophagia and Denies vomiting Denies dysuria, Reports nocturia (at times) and Denies urinary frequency Musc Reports back pain, Reports neck pain (on and off) and Denies tingling Skin/Breast Reports rash (on and off, on the forearms) Neuro Denies dizziness, Denies headache(s) and Denies tingling Endo Denies fatigue and Denies palpitations Samir/Lymph Details: (+) varicose veins on both legs Physical exam (Primary Care) Vital Signs: Last Vital Signs Pulse 65 02/05/25 09:30 BP 116/84 02/05/25 09:30 Pulse Ox 97 02/05/25 09:30 Oxygen Delivery Method Room Air 02/05/25 09:30 BMI result Body Mass Index 35.9 Tobacco/Smoking Status: Tobacco use Status Tobacco use date assessed 02/05/25 02/05/25 09:36 Patient Tobacco Use Status Current everyday Tobacco (1- 02/05/25 09:36 2 CIGARS DAILY) Tobacco use type Cigar 02/05/25 09:36 e-Cigarette/Vaping Use Never Used 02/05/25 09:36 PHQ-9: PHQ-9 Score PHQ-9: Total score 0 02/05/25 09:36 Depression Screening Interpretation: Negative Thrive Assessment: Date of Thrive Assessment Date Thrive assessed 02/05/25 02/05/25 09:36 Currently or been in a relationship where the following occur: No concerns reported Const General: no acute distress and alert HENMT Ears: TM's normal bilaterally and EAC's normal Throat: Yes posterior oropharynx normal and Yes tonsils normal (no TP congestion) Neck Neck: Yes supple and No lymphadenopathy Thyroid: Thyroid normal Resp Auscultation: clear to auscultation bilaterally, no rales and no wheezes Cardio Rate: regular rate Rhythm: regular rhythm Heart sounds: no murmurs GI Palpation (GI): Soft to palpation and nontender Auscultation: normal bowel sounds General: Yes no CVA tenderness Back/Spine/Pelvis Back: no CVA tenderness Cervical Spine: Cervical spine tenderness (mild) Thoracic/Lumbar Spine: thoracic spinal tenderness (mild) Skin Other: (+) residual rash and excoriations noted on the forearms, especially on the left side Extrem Other: (+) prominent varicose veins over both lower extremities General: Yes no clubbing, cyanosis or edema Results Reviewed Results Reviewed: Laboratory Tests 02/01/25 09:40 WBC 5.4 Hgb 14.4 Hct 44.2 Plt Count 149 L Sodium 139 Potassium 4.6 Creatinine 0.97 Estimated GFR > 60 Fasting Glucose 107 H Hemoglobin A1c % 5.9 Calcium 9.1 AST 28 ALT 30 Triglycerides 104 Cholesterol 145 LDL Cholesterol, Calc 82 HDL Cholesterol 43 25-OH Vitamin D Total 25.6 L TSH 0.92 Ur Specific [place] 1.025 Urine Protein Negative Urine Glucose (UA) Negative Urine Blood Negative Urine Nitrite Negative Ur Leukocyte Esterase Negative Coding Level of Care Code Est Pt Level 4 (00031) Diagnoses Coronary artery disease involving [place] coronary artery of [place] heart without angina pectoris I25.10 Coronary Disease-Associated Artery/Lesion type: [place] artery [place] vs. transplanted heart: [place] heart Associated angina: without angina Pure hypercholesterolemia E78.00 Benign essential hypertension I10 Impaired fasting glucose R73.01 GERD without esophagitis K21.9 Vitamin D deficiency E55.9 Cervical spondylosis with radiculopathy M47.22 Thoracic spondylosis M47.814 Varicose veins of both lower extremities with pain I83.813 Vitamin B12 deficiency E53.8 Meralgia paresthetica of left side G57.12 Rash R21 Benign prostatic hyperplasia, unspecified whether lower urinary tract symptoms present N40.0 Lower urinary tract symptom presence: unspecified whether lower urinary tract symptoms present Erectile dysfunction, unspecified erectile dysfunction type N52.9 Erectile dysfunction type: unspecified Obesity (BMI 30-39.9) E66.9 Additional Codes PHQ-9 - 25211 - PHQ-9 Billing: Yes ([id number]) Assessment & Plan Assessment & Plan (1) Coronary artery disease: Comment: follows w/PV Cardio Code(s): I25.10 - Atherosclerotic heart disease of [place] coronary artery without angina pectoris Category: Medical Qualifiers: Coronary Disease-Associated Artery/Lesion type: [place] artery [place] vs. transplanted heart: [place] heart Associated angina: without angina Qualified Code(s): I25.10 - Atherosclerotic heart disease of [place] coronary artery without angina pectoris Plan: Patient had cardiac stress testing done about 3 years ago that came back negative He was recommended by cardiology to continue on long-acting nitrates for maintenance therapy Continue Isosorbide Mononitrate ER 30 mg QD Follow up with cardiology as scheduled (2) Pure hypercholesterolemia: Code(s): E78.00 - Pure hypercholesterolemia, unspecified Category: Medical Plan: Results of his labs done a few days ago reviewed and discussed with patient Reinforced low cholesterol diet Continue Simvastatin 40 mg QD Will recheck his labs and fasting lipids in 6 months for follow up (3) Benign essential hypertension: Code(s): I10 - Essential (primary) hypertension Category: Medical Plan: Reinforced low sodium diet - goal is systolic BP of at least 130 to 140 mm or less Continue Lisinopril 20 mg QD and Atenolol 25 mg QD (4) Impaired fasting glucose: Code(s): R73.01 - Impaired fasting glucose Category: Medical Plan: His HgbA1c has been steady at 5.9% on his labs done a few days ago; was previously at 5.8% earlier this year Reinforced low calorie diet/exercise as tolerated (5) GERD without esophagitis: Code(s): K21.9 - Gastro-esophageal reflux disease without esophagitis Category: Medical Plan: Dietary restrictions reinforced (6) Vitamin D deficiency: Code(s): E55.9 - Vitamin D deficiency, unspecified Category: Medical Plan: Have advised patient that his Vitamin D level is still low on his recent labs Have advised him to increase his Vitamin D3 to 4000 units daily at least through the winter Will recheck his Vitamin D level in 6 months for follow up (7) Cervical spondylosis with radiculopathy: Code(s): M47.22 - Other spondylosis with radiculopathy, cervical region Category: Medical Plan: Patient still has on and off symptoms in his right arm but states that these have not gotten any worse lately Cervical spine x-rays done last year (April 2022) revealed (+) mild degenerative disc disease at C4-C5 and moderate degenerative disc disease seen at C5-C6 and C6-C7. There is also (+) multi-level cervical spondylosis noted Have advised him that his riding a motorcycle often may also be contributing to these symptoms as he tends to notice these more often after he goes out for lengthy motorcycle rides - advised that it is likely that the constant vibration in his hands from the steering handles may be contributing to these symptoms May need to consider NCV & EMG if his symptoms persist or worsen (8) Thoracic spondylosis: Code(s): M47.814 - Spondylosis without myelopathy or radiculopathy, thoracic region Category: Medical Plan: He still has on and off back pain but states that his back symptoms have been mostly manageable lately Past thoracic spine x-rays have revealed (+) spondylosis Repeat thoracic spine x-rays done last year revealed (+) multi-level thoracolumbar spondylosis. The thoracic disc spaces are relatively well-maintained and there is also a mild to moderate thoracolumbar dextroscoliosis noted (9) Varicose veins of both lower extremities with pain: Code(s): I83.813 - Varicose veins of bilateral lower extremities with pain Category: Medical Plan: He was referred to vascular surgery previously but he states that he did not pursue the referral as his symptoms have subsided shortly after that visit States that he would like to put his on hold for now as he does not really want to have any surgery done at this time He is advised to call again for referral when his symptoms start to bother him again (10) Vitamin B12 deficiency: Code(s): E53.8 - Deficiency of other specified B group vitamins Category: Medical Plan: Continue OTC Vitamin B12 tablets 1000 mcg daily (11) Meralgia paresthetica of left side: Code(s): G57.12 - Meralgia paresthetica, left lower limb Category: Medical Plan: Symptoms appear stable - patient is reminded again that losing weight and wearing loose clothings can help alleviate or mitigate these symptoms (12) Rash: Code(s): R21 - Rash and other nonspecific skin eruption Category: Medical Plan: On and off on both forearms, especially on the left side Will start patient on Triamcinolone acetonide 0.1% cream to apply to his rash BID PRN (13) Benign prostatic hyperplasia: Code(s): N40.0 - Benign prostatic hyperplasia without lower urinary tract symptoms Category: Medical Qualifiers: Lower urinary tract symptom presence: unspecified whether lower urinary tract symptoms present Qualified Code(s): N40.0 - Benign prostatic hyperplasia without lower urinary tract symptoms Plan: Patient felt that his symptoms have not really improved much with his minimally invasive prostate surgery done a few years ago, as he continues to wake up a couple of times a night to use the bathroom He was started on Tadalafil 10 mg QD (lower dose because he is on a long-acting nitrate) by Dr. 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 Chavez) as scheduled (14) Erectile dysfunction: Code(s): N52.9 - Male erectile dysfunction, unspecified Category: Medical Qualifiers: Erectile dysfunction type: unspecified Qualified Code(s): N52.9 - Male erectile dysfunction, unspecified Plan: Continue Tadalafil 5 mg QD Follow up with urology as scheduled (15) Obesity (BMI 30-39.9): Code(s): E66.9 - Obesity, unspecified Category: Medical Plan: Reinforced diet/exercise as tolerated/lose weight Plan Follow up in 6 months Orders: Orders Hemoglobin A1c 6 Months E11.9 - Type 2 diabetes mellitus without complications UA CC w/rflx Micro + Cult 6 Months R30.0 - Dysuria Vitamin D 25-OH Total 6 Months E55.9 - Vitamin D deficiency, unspecified Comprehensive [place]. Panel Fast 6 Months E78.00 - Pure hypercholesterolemia, unspecified Complete Blood Count Auto Diff 6 Months D64.9 - Anemia, unspecified Lipid Panel 6 Months E78.00 - Pure hypercholesterolemia, unspecified TSH reflex Free T4 6 Months E78.00 - Pure hypercholesterolemia, unspecified Medications: New triamcinolone acetonide 0.1% 1 appl topical BID PRN 30 grams 1RF rash
--- OUTSIDE RECORDS SUMMARY | 2025-02-05 10:19 | XMS_ITS | Clinical Summary ---
Author Organization [facility] [employer] [facility] Address [address] [place] [address] Phone Care Team Providers Care Software Development Leader Name Role Phone Sascha Perkins MD Primary [...] 20 mg tabletIndicati ons:Coronary artery disease involving [place] coronary artery of [place] heart without angina pectoris Take 1 tablet [...] 1 week Coronary artery disease invo lving [place] coronary artery of [place] heart without angina pectoris 01/31/2024 Assessment & [...] Description 01/28/2025 1:30 PM EST Office Visit [facility] [address] [place] [phone] Irene Rasmussen MD Coronary artery disease involving [place] coronary artery of [place] heart without angina pectoris (Primary Dx); Primary hypertension 11/13/2024 10:24 AM EDT Anesthesia Event [facility] [address] [place] [phone] Sinan Cali MD 11/13/2024 9:24 AM EDT - 11/13/2024 11:59 PM EDT Hospital Encounter [facility] [address] [place] [address] Osei Reagan MD Dasilva, John [...] 2:05 PM EST Coronary artery disease involving [place] coronary artery of [place] heart without angina pectoris COLONOSCOPY Routine 11/13/2024 [...] GEMUSE QTc 426 ms GEMUSE P Wave [place] 35 degrees GEMUSE T [place] 67 degrees GEMUSE ECG Interpretation Sinus bradycardia Possible Left atrial enlargement Left ventricular hypertrophy Abnormal ECG When compared with ECG of 31-JAN-2024 08:06, No significant change was found Confirmed by Dulce RASMUSSEN, IRENE ([id number]) on 01/28/2025 4:43:38 PM GEMUSE 01/28/2025 2:05 PM EST 01/28/2025 4:43 PM EST us Irene Rasmussen MD ECG ORDERABLES Final Result GEMUSE * COLONOSCOPY Anesthesia - MAC; [facility] (11/13/2024 10:41 AM EDT) Anatomical [...] office PRN. Narrative 11/13/2024 10:40 AM EDT [facility] Patient Name: Swati Lutz Procedure Date: [...] retroflexion views. Procedure Code(s): --- Professional --- 43105, Colonoscopy, flexible; with removal of tumor(s), polyp(s), or other lesion(s) by snare technique Diagnosis Code(s): --- Professional --- Z86.010, Personal history of colonic polyps D12.2, Benign neoplasm of ascending colon CPT copyright 2020 [employer]. All rights reserved. The codes documented in this report are preliminary and upon director of front office review may be revised to meet current compliance requirements. Osei Reagan MD 11/13/2024 10:40:30 AM This report has been signed electronically.Osei Reagan MD Number of Addenda: 0 Note Initiated On: 11/13/2024 10:12 AM Scope In: Scope Out: Endoscopy Department at [facility] - [address] [place] [phone] Procedure Note Osei Reagan MD - 11/13/2024 [facility] Patient Name: Swati Lutz Procedure Date: [...] retroflexion views. Procedure Code(s): --- Professional --- 50095, Colonoscopy, flexible; with removal of tumor(s), polyp(s), or other lesion(s) by snare technique Diagnosis Code(s): --- Professional --- Z86.010, Personal history of colonic polyps D12.2, Benign neoplasm of ascending colon CPT copyright 2020 [employer]. All rights reserved. The codes documented in this report are preliminary and upon director of front office reviewmay be revised to meet current compliance requirements. Osei Reagan MD 11/13/2024 10:40:30 AM This report has been signed electronically.Osei Reagan MD Number of Addenda: 0 Note Initiated On: 11/13/2024 10:12 AM Scope In: Scope Out: Endoscopy Department at [facility] - [address] [place] [phone] IMPRESSION: - One 5 mm polyp in [...] - Tubular adenoma. 11/14/2024 9:[address] [facility] Gross Description A. Large Intestine, Right/Ascend ing Colon, polyp x1: Labeled ascend colon, polyp x 1 . Received in formalin is a 0.3 cm irregular montalvo mucosal tissue fragment which is wrapped in paper and submitted in toto in one cassette, one piece, multiple levels on one slide. AAKASH 11/14/2024 9:[address] [facility] Disclaimer Unless otherwise specified, all tissue is 10% NB formalin fixed and paraffin embedded. 11/14/2024 9:[address] [facility] Tissue Ascending colon structure / Unknown 11/13/2024 10:34 AM EDT 11/13/2024 11:45 AM EDT us Osei Reagan MD LAB PATHOLOGY ORDERABLES Gypsy haynes Result JOSE C [place] ([facility]) [facility] [address] [place] [address], [place] [phone] from Last 3 Months Insurance MEDICARE [facility] [place] [address] [place] [phone] Care Teams Software Development Leader Relationship Specialty Start Date End Date Sascha Perkins MD [address] [place] [address] VALERIA Coleman PCP - General 08/04/12
--- OUTSIDE RECORDS SUMMARY | 2025-02-05 10:19 | XMS_ITS | Patient Health Record ---
[facility] Address [address] [place] [phone] Support Name Relationship Address Phone SWATI DING Guarantor Unknown [phone] Reason For Referral No Information Plan Of Treatment No Information
== END 2025-02-05 10:16 | disposition home or self-care (01) ==
LOC: HO.HMCH 09:28
PROVIDERS: PCP Internal Medicine; Visit Provider Internal Medicine
DX: I25.10 Atherosclerotic heart disease of native coronary artery without angina pectoris (principal); E78.00 Pure hypercholesterolemia, unspecified; E66.9 Obesity, unspecified; Z68.35 Body mass index [BMI] 35.0-35.9, adult; I10 Essential (primary) hypertension; R73.01 Impaired fasting glucose; K21.9 Gastro-esophageal reflux disease without esophagitis; E55.9 Vitamin D deficiency, unspecified; M47.22 Other spondylosis with radiculopathy, cervical region; M47.814 Spondylosis without myelopathy or radiculopathy, thoracic region; I83.813 Varicose veins of bilateral lower extremities with pain; E53.8 Deficiency of other specified B group vitamins; G57.12 Meralgia paresthetica, left lower limb; R21 Rash and other nonspecific skin eruption; N40.0 Benign prostatic hyperplasia without lower urinary tract symptoms; N52.9 Male erectile dysfunction, unspecified

== ENCOUNTER → 2025-02-05 09:27 | Outpatient (BNVA) | payer MEDICARE, OTHER, SELFPAY | PROVIDERS: PCP Internal Medicine; Visit Provider Internal Medicine | DX: I25.10 Atherosclerotic heart disease of native coronary artery without angina pectoris (principal); E78.00 Pure hypercholesterolemia, unspecified; I10 Essential (primary) hypertension; R73.01 Impaired fasting glucose; E55.9 Vitamin D deficiency, unspecified; K21.9 Gastro-esophageal reflux disease without esophagitis; M47.22 Other spondylosis with radiculopathy, cervical region; M47.814 Spondylosis without myelopathy or radiculopathy, thoracic region; E53.8 Deficiency of other specified B group vitamins; G57.12 Meralgia paresthetica, left lower limb; I83.813 Varicose veins of bilateral lower extremities with pain | CPT/HCPCS: 96127; 99212 ==

== ENCOUNTER 2025-02-08 09:03 | Outpatient (AMB) | payer MEDICARE, OTHER, SELFPAY ==
--- NOTE | 2025-02-08 09:07 | A.OFFVIS_ITS ---
Intake Visit Reasons: 6M Med Review Intake Note: Patient is present for Medication Review Oxybutynin Urology Med: Oxybutynin Antibiotic Allergy: Sulfa Blood Thinner: None Denies any urinary issues. PVR:0ML Last PSA- 08/04/2024- 0.99 Social Media Campaign Manager Required: No Accompanied by: Self / Same As Patient Allergies Sulfa (Sulfonamide Antibiotics) (SULFA (SULFONAMIDE ANTIBIOTICS)) Allergy (Unknown, Verified 02/08/25 09:10) RASH, hives HPI Comments Details: Benja is a pleasant male. He is a patient of Dr. Perkins. He seen for the following urologic conditions - lower urinary tract symptoms - erectile dysfunction Follow-up oxybutynin trial Continue daily tadalafil Using medication on a p.r.n. basis Seems to be effective for him Recently had trip to [place] 12 month follow-up Complicated UTI Urine culture Levaquin 7 days Six-month follow-up Discussed his car collection. Drives E5 [address], C7 Shakeel Did notice that bladder control was improved with 5 mg daily tadalafil. Less urgency and less frequency Had come off medication recently has had noticed trace blood in his urine after his trip back from [place] Thinks this may have been secondary to dehydration Is aware of the interaction between tadalafil and isosorbide Takes these medications during the day Blood pressure stable Erectile dysfunction Previously use of MUSE Prescription provided Trial daily tadalafil Microscopic hematuria Lower urinary tract symptoms Prior prostate procedure [facility] Medical History Cervical spondylosis with radiculopathy Coronary artery disease Obesity (BMI 30-39.9) Erectile dysfunction Meralgia paresthetica of left side Vitamin B12 deficiency Vitamin D deficiency Benign prostatic hyperplasia GERD without esophagitis Impaired fasting glucose Pure hypercholesterolemia Benign essential hypertension Surgical History History of prostate surgery (~04/2017) Family History Father Cardiovascular disease Mother Hypertension Social History Housing: House Are you a primary vision care associate to a significant other at home: No Do you presently have visiting nurse or other home services: No Alcohol intake: current Alcohol intake frequency: a few times a week Alcohol type: wine Patient Tobacco Use Status: Current everyday Tobacco user (1-2 CIGARS DAILY) Tobacco use type: Cigar e-Cigarette/Vaping Use: Never Used Second Hand Smoke Exposure: Yes service: No Current occupational status: employed Cognitive needs: No Hearing needs: No Vision needs: Yes (glasses) Review of Systems Const Denies chills and Denies fever(s) Card Reports no additional complaints and Denies syncope Resp Denies cough GI Denies abdominal pain and Denies heartburn Reports as per HPI and Denies change in libido Neuro Denies syncope Psych Denies change in libido Endo Denies change in libido Physical Exam Const General: cooperative, healthy appearing, comfortable and no acute distress Orientation/consciousness: patient oriented x3 HEENT Face and sinus: Yes normal facial exam Mouth: moist mucous membranes Neck Neck: Yes normal visual inspection, Yes full ROM and Yes trachea midline Chest Chest palpation & inspection: normal inspection of the chest Resp Effort & Inspection: normal respiratory effort, able to speak in complete sentences and no respiratory distress GI Inspection: Yes normal to inspection Back/Spine/Pelvis Cervical Spine: normal cervical lordosis Thoracic/Lumbar Spine: thoracic and lumbar spine normal to inspection Skin General skin exam: no rashes or lesions noted Neuro General: patient oriented x3, gait normal, tone normal and moves all extremities Extrem General: Yes normal to inspection and Yes capillary refill normal Office Procedures Post Void Residual Post Residual Void Post Void Residual (PVR): 0 45589-Iuva Void Residual by ultrasound Assessment & Plan Assessment & Plan (1) Benign prostatic hyperplasia: Code(s): N40.0 - Benign prostatic hyperplasia without lower urinary tract symptoms Category: Medical Qualifiers: Lower urinary tract symptom presence: unspecified whether lower urinary tract symptoms present Qualified Code(s): N40.0 - Benign prostatic hyperplasia without lower urinary tract symptoms (2) Bladder instability: Code(s): N32.89 - Other specified disorders of bladder Category: Medical Plan Twelve month follow-up office Orders: Orders AMB Post Void Residual by ultrasound Today N32.89 - Other specified disorders of bladder Patient Instructions: This note is constructed using voice recognition software. While every effort has been made to ensure accuracy supervisor carbon paper coating errors may have been included. Imaging studies, laboratory and physical exam results were discussed and reviewed in detail. No major barriers to patient understanding were identified. An opportunity to ask questions regarding the treatment plan was provided. All questions were answered. The patient expressed understanding and agreement with the above treatment plan. The patient is aware they should contact our office by phone for worsening of their current condition or the appearance of new urologic symptoms. Compliance is encouraged with any medications and followup testing that is ordered. It is a privilege to participate in the urologic care of your patient. If you have any questions or concerns regarding treatment for the above conditions, or other urologic issues, please do not hesitate to contact me. The office telephone contact is [phone]. Sincerely, Dr Kendall Chavez MD, [facility] - Urology Compassionate Specialist Care for the Genitourinary System Coding Level of Care Code Est Pt Level 3 (03569) Complex EM visit Add On G2211 Diagnoses Benign prostatic hyperplasia, unspecified whether lower urinary tract symptoms present N40.0 Lower urinary tract symptom presence: unspecified whether lower urinary tract symptoms present Bladder instability N32.89 CPT Codes Post Residual Void - PVR CPT Code: 80158-Lbub Void Residual by ultrasound ([id number])
--- OUTSIDE RECORDS SUMMARY | 2025-02-08 09:39 | XMS_ITS | Clinical Summary ---
Author Organization [place] [employer] [facility] Address [address] [place] [address] Phone Care Team Providers Care B2B Sales Executive Name Role Phone Sascha Perkins MD Primary Care Provider [phone] Allergies Active Allergy Reactions Criticality Noted Date [...] 20 mg tabletIndicati ons:Coronary artery disease involving [place] coronary artery of [place] heart without angina pectoris Take 1 tablet [...] 1 week Coronary artery disease invo lving [place] coronary artery of [place] heart without angina pectoris 01/31/2024 Assessment & [...] Description 01/28/2025 1:30 PM EST Office Visit [facility] [address] [place] [id number] Irene Rasmussen MD Coronary artery disease involving [place] coronary artery of [place] heart without angina pectoris (Primary Dx); Primary hypertension 11/13/2024 10:24 AM EDT Anesthesia Event [facility] Endoscopy [address] [place] [id number] Sinan Cali MD 11/13/2024 9:24 AM EDT - 11/13/2024 11:59 PM EDT Hospital Encounter [facility] Endoscopy [address] [place] [address] Osei Reagan MD Dasilva, John [...] 2:05 PM EST Coronary artery disease involving [place] coronary artery of [place] heart without angina pectoris COLONOSCOPY Routine 11/13/2024 [...] GEMUSE QTc 426 ms GEMUSE P Wave [place] 35 degrees GEMUSE T [place] 67 degrees GEMUSE ECG Interpretation Sinus bradycardia Possible Left atrial enlargement Left ventricular hypertrophy Abnormal ECG When compared with ECG of 31-JAN-2024 08:06, No significant change was found Confirmed by Dulce RASMUSSEN, IRENE ([id number]) on 01/28/2025 4:43:38 PM GEMUSE 01/28/2025 2:05 PM EST 01/28/2025 4:43 PM EST us Irene Rasmussen MD ECG ORDERABLES Final Result GEMUSE * COLONOSCOPY Anesthesia - MAC; [facility] ENDOSCOPY (11/13/2024 10:41 AM EDT) Anatomical [...] office PRN. Narrative 11/13/2024 10:40 AM EDT [facility] GI Patient Name: Swati Lutz Procedure Date: [...] retroflexion views. Procedure Code(s): --- Professional --- 29084, Colonoscopy, flexible; with removal of tumor(s), polyp(s), or other lesion(s) by snare technique Diagnosis Code(s): --- Professional --- Z86.010, Personal history of colonic polyps D12.2, Benign neoplasm of ascending colon CPT copyright 2020 [employer]. All rights reserved. The codes documented in this report are preliminary and upon window decorator review may be revised to meet current compliance requirements. Osei Reagan MD 11/13/2024 10:40:30 AM This report has been signed electronically.Osei Reagan MD Number of Addenda: 0 Note Initiated On: 11/13/2024 10:12 AM Scope In: Scope Out: Endoscopy Department at [facility] - [address] [place] [id number] Procedure Note Osei Reagan MD - 11/13/2024 [facility] GI Patient Name: Swati Lutz Procedure Date: [...] retroflexion views. Procedure Code(s): --- Professional --- 83329, Colonoscopy, flexible; with removal of tumor(s), polyp(s), or other lesion(s) by snare technique Diagnosis Code(s): --- Professional --- Z86.010, Personal history of colonic polyps D12.2, Benign neoplasm of ascending colon CPT copyright 2020 [employer]. All rights reserved. The codes documented in this report are preliminary and upon window decorator reviewmay be revised to meet current compliance requirements. Osei Reagan MD 11/13/2024 10:40:30 AM This report has been signed electronically.Osei Reagan MD Number of Addenda: 0 Note Initiated On: 11/13/2024 10:12 AM Scope In: Scope Out: Endoscopy Department at [facility] - [address] [place] [phone] IMPRESSION: - One 5 mm polyp in [...] - Tubular adenoma. 11/14/2024 9:04 AM EDT [facility] Gross Description A. Large Intestine, Right/Ascend ing Colon, polyp x1: Labeled ascend colon, polyp x 1 . Received in formalin is a 0.3 cm irregular montalvo mucosal tissue fragment which is wrapped in paper and submitted in toto in one cassette, one piece, multiple levels on one slide. AAKASH 11/14/2024 9:04 AM EDT [facility] Disclaimer Unless otherwise specified, all tissue is 10% NB formalin fixed and paraffin embedded. 11/14/2024 9:04 AM EDT [facility] Tissue Ascending colon structure / Unknown 11/13/2024 10:34 AM EDT 11/13/2024 11:45 AM EDT us Osei Reagan MD LAB PATHOLOGY ORDERABLES Gypsy haynes Result JOSE C [place] ([facility]) [facility] [address] [place] [address], [place] [phone] from Last 3 Months Insurance [facility] [address] [place] [phone] Care Teams B2B Sales Executive Relationship Specialty Start Date End Date Sascha Perkins MD [address] VALERIA Coleman PCP - General 08/04/12
== END 2025-02-08 10:14 | disposition home or self-care (01) ==
LOC: HO.HUSH 09:04
PROVIDERS: PCP Internal Medicine; Visit Provider Urology
DX: N40.0 Benign prostatic hyperplasia without lower urinary tract symptoms (principal); N32.89 Other specified disorders of bladder
CPT/HCPCS: 99213; G2211

== ENCOUNTER → 2025-02-08 09:03 | Outpatient (BNVA) | payer MEDICARE, OTHER, SELFPAY | PROVIDERS: PCP Internal Medicine; Visit Provider Urology | DX: N40.0 Benign prostatic hyperplasia without lower urinary tract symptoms (principal); N32.89 Other specified disorders of bladder; Z87.891 Personal history of nicotine dependence | CPT/HCPCS: G0463; 51798; 99212 ==